=== PATIENT | male | born 1955 | race Caucasian/White ===

== ENCOUNTER 2020-09-17 10:29 | Outpatient (REF) | payer MEDICARE, MEDICAID, SELFPAY ==
[2020-09-17 14:23] LABS: Hematocrit 44.1 % (42-52); Mean Corpuscular Hemoglobin 29.1 pg (27.0-33.0); Mean Corpuscular Volume 85.6 fL (80-98); Mean Platelet Volume 11.3 fL (9.4-12.4); Platelet Count 229 X10*3/uL (160-400); Red Blood Count 5.15 X10*6/uL (4.60-5.80); Red Cell Distribution Width 12.4 % (11.0-16.0); White Blood Count 4.6 X10*3/uL (4.8-10.8)
[2020-09-17 14:43] LABS: Amylase 91 U/L (28-100)
[2020-09-17 14:57] LABS: Valproate 39.3 mcg/mL (50.0-100.0)
[2020-09-17 14:58] LABS: Alanine Aminotransferase 16 U/L (0-40); Albumin Level 4.2 g/dL (3.5-5.0); Alkaline Phosphatase 54 U/L (39-117); Anion Gap 14 (12-20); Aspartate Amino Transferase 14 U/L (5-37); Bilirubin Total 0.5 mg/dL (0.0-1.0); Blood Urea Nitrogen 14 mg/dL (9-16); Calcium 9.1 mg/dL (8.4-10.2); Carbon Dioxide 26 mmol/L (22-29); Chloride 106 mmol/L (96-108); Cholesterol 149 mg/dL; Estimated Glomerular Filt Rate > 60; Glucose Fasting 92 mg/dL (60-99); HDL Cholesterol 48 mg/dL; LDL Cholesterol Calculated 82 mg/dl; Potassium 4.2 mmol/l (3.3-5.1); Sodium 142 mmol/L (135-145); Total Protein 7.1 g/dL (6.5-8.0); Triglycerides 96 mg/dL
== END 2020-09-17 10:30 | disposition home or self-care (01) ==
LOC: HO.HMGCLDS 10:29
PROVIDERS: PCP Internal Medicine; Referring Provider Clinical Nurse Specialist Psychiatric/Mental Health; Visit Provider Internal Medicine
DX: F31.9 Bipolar disorder, unspecified (principal); Z79.899 Other long term (current) drug therapy
CPT/HCPCS: 36415; 80053; 80061; 80164; 82150; 85027

== ENCOUNTER 2021-07-02 10:25 | Outpatient (REF) | payer MEDICARE, MEDICAID, SELFPAY ==
[2021-07-02 13:52] LABS: Glucose Urine UA NEG (NEG); Leukocyte Esterase Urine NEG (NEG); Nitrite Urine NEG (NEG); Urine Blood TRACE (NEG); Urine Ketones NEG (NEG); Urine Protein NEG (NEG-TRACE)
[2021-07-02 13:53] LABS: Appearance Urine CLEAR; Color Urine YELLOW
[2021-07-02 14:01] LABS: MANUAL DIFF FLAG NO
[2021-07-02 14:02] LABS: RBC Urine 0-2 /HPF (0); WBC Urine 0-2 /HPF (0-4)
[2021-07-02 14:05] LABS: Basophils Percent Auto 0.7 % (0-2); Eosinophils Absolute Auto 0.2 X10*3/uL (0.0-0.4); Eosinophils Percent Auto 3.6 % (0-4); Hematocrit 44.8 % (42-52); Hemoglobin 15.2 g/dl (14.0-18.0); Imm Gran Abs Auto 0.02 X10*3/uL (0.00-0.03); Imm Gran Pct Auto 0.5 % (0.0-0.4); Lymphocytes Absolute Auto 1.6 X10*3/uL (1.2-4.9); Lymphocytes Percent Auto 35.4 % (20-40); Mean Corpuscular HGB Conc 33.9 g/dl (31.0-36.0); Mean Corpuscular Hemoglobin 29.6 pg (27.0-33.0); Mean Corpuscular Volume 87.3 fL (80-98); Mean Platelet Volume 11.3 fL (9.4-12.4); Monocytes Absolute Auto 0.5 X10*3/uL (0.1-1.2); Monocytes Percent Auto 10.4 % (2-11); Neutrophils Absolute Auto 2.2 X10*3/uL (2.0-8.3); Neutrophils Percent Auto 49.4 % (45-73); Platelet Count 224 X10*3/uL (160-400); Red Blood Count 5.13 X10*6/uL (4.60-5.80); Red Cell Distribution Width 12.2 % (11.0-16.0); White Blood Count 4.4 X10*3/uL (4.8-10.8)
[2021-07-02 14:17] LABS: Alanine Aminotransferase 15 U/L (0-40); Albumin Level 4.4 g/dL (3.5-5.0); Alkaline Phosphatase 59 U/L (39-117); Anion Gap 12 (12-20); Aspartate Amino Transferase 16 U/L (5-37); Bilirubin Total 0.6 mg/dL (0.0-1.0); Blood Urea Nitrogen 16 mg/dL (9-16); Calcium 9.5 mg/dL (8.4-10.2); Carbon Dioxide 27 mmol/L (22-29); Chloride 106 mmol/L (96-108); Cholesterol 175 mg/dL; Estimated Glomerular Filt Rate > 60; Glucose Fasting 97 mg/dL (60-99); HDL Cholesterol 50 mg/dL; LDL Cholesterol Calculated 111 mg/dl; Potassium 4.3 mmol/L (3.3-5.1); Sodium 141 mmol/L (135-145); Total Protein 7.4 g/dL (6.5-8.0); Triglycerides 70 mg/dL
[2021-07-02 14:36] LABS: PSA,Total (Free>4and<10) 2.37 ng/mL (0.00-4.00); Prostate Specific Antigen Scr 2.26 ng/mL (<0.05-4.0)
== END 2021-07-02 10:26 | disposition home or self-care (01) ==
LOC: HO.HMGCLDS 10:25
PROVIDERS: PCP Internal Medicine; Referring Provider Urology; Visit Provider Clinical Nurse Specialist Psychiatric/Mental Health
DX: Z12.5 Encounter for screening for malignant neoplasm of prostate (principal); N40.1 Benign prostatic hyperplasia with lower urinary tract symptoms; N13.8 Other obstructive and reflux uropathy; E78.5 Hyperlipidemia, unspecified; F32.9 Major depressive disorder, single episode, unspecified; I10 Essential (primary) hypertension
CPT/HCPCS: 36415; 80053; 80061; 80164; 81001; 84153; 85025; 85027

== ENCOUNTER 2021-12-26 10:29 | Outpatient (REF) | payer MEDICARE, MEDICAID, SELFPAY ==
[2021-12-26 13:45] LABS: MANUAL DIFF FLAG NO
[2021-12-26 13:49] LABS: Basophils Percent Auto 0.5 % (0-2); Eosinophils Absolute Auto 0.2 X10*3/uL (0.0-0.4); Eosinophils Percent Auto 3.5 % (0-4); Hematocrit 43.9 % (42.0-52.0); Hemoglobin 14.8 g/dl (14.0-18.0); Imm Gran Abs Auto 0.01 X10*3/uL (0.00-0.03); Imm Gran Pct Auto 0.2 % (0.0-0.4); Lymphocytes Absolute Auto 1.7 X10*3/uL (1.2-4.9); Lymphocytes Percent Auto 39.2 % (20-40); Mean Corpuscular HGB Conc 33.7 g/dl (31.0-36.0); Mean Corpuscular Hemoglobin 29.5 pg (27.0-33.0); Mean Corpuscular Volume 87.5 fL (80.0-98.0); Mean Platelet Volume 11.3 fL (9.4-12.4); Monocytes Absolute Auto 0.4 X10*3/uL (0.1-1.2); Monocytes Percent Auto 8.8 % (2-11); Neutrophils Absolute Auto 2.1 x10*3/uL (2.0-8.3); Neutrophils Percent Auto 47.8 % (45-73); Platelet Count 211 X10*3/uL (160-400); Red Blood Count 5.02 X10*6/uL (4.60-5.80); Red Cell Distribution Width 12.3 % (11.0-16.0); White Blood Count 4.3 X10*3/uL (4.8-10.8)
[2021-12-26 14:02] LABS: Amylase 118 U/L (28-100)
[2021-12-26 14:06] LABS: Alanine Aminotransferase 14 U/L (0-40); Albumin Level 4.1 g/dL (3.5-5.0); Alkaline Phosphatase 56 U/L (39-117); Anion Gap 10 (12-20); Aspartate Amino Transferase 13 U/L (5-37); Bilirubin Total 0.5 mg/dL (0.0-1.0); Blood Urea Nitrogen 20 mg/dL (9-16); Calcium 9.8 mg/dL (8.4-10.2); Carbon Dioxide 29 mmol/L (22-29); Chloride 105 mmol/L (96-108); Estimated Glomerular Filt Rate 57; Glucose Random 98 mg/dL (60-115); Potassium 4.2 mmol/L (3.3-5.1); Sodium 140 mmol/L (135-145); Total Protein 7.1 g/dL (6.5-8.0)
[2021-12-26 14:24] LABS: Valproate 36.6 mcg/mL (50.0-100.0)
== END 2021-12-26 10:30 | disposition home or self-care (01) ==
LOC: HO.HMGCLDS 10:29
PROVIDERS: PCP Internal Medicine; Visit Provider Clinical Nurse Specialist Psychiatric/Mental Health
DX: F31.9 Bipolar disorder, unspecified (principal)
CPT/HCPCS: 36415; 80053; 80164; 82150; 85025

== ENCOUNTER 2022-05-21 10:28 | Outpatient (REF) | payer MEDICARE, MEDICAID, SELFPAY ==
[2022-05-21 11:17] LABS: MANUAL DIFF FLAG NO
[2022-05-21 11:33] LABS: Basophils Percent Auto 0.8 % (0-2); Eosinophils Absolute Auto 0.2 X10*3/uL (0.0-0.4); Eosinophils Percent Auto 4.7 % (0-4); Hematocrit 42.4 % (42.0-52.0); Hemoglobin 14.5 g/dl (14.0-18.0); Imm Gran Abs Auto 0.01 X10*3/uL (0.00-0.03); Imm Gran Pct Auto 0.2 % (0.0-0.4); Lymphocytes Absolute Auto 1.8 X10*3/uL (1.2-4.9); Lymphocytes Percent Auto 36.7 % (20-40); Mean Corpuscular HGB Conc 34.2 g/dl (31.0-36.0); Mean Corpuscular Hemoglobin 29.4 pg (27.0-33.0); Mean Corpuscular Volume 85.8 fL (80.0-98.0); Mean Platelet Volume 10.5 fL (9.4-12.4); Monocytes Absolute Auto 0.5 X10*3/uL (0.1-1.2); Monocytes Percent Auto 10.6 % (2-11); Neutrophils Absolute Auto 2.3 x10*3/uL (2.0-8.3); Platelet Count 230 X10*3/uL (160-400); Red Blood Count 4.94 X10*6/uL (4.60-5.80); Red Cell Distribution Width 11.9 % (11.0-16.0); White Blood Count 4.9 X10*3/uL (4.8-10.8)
[2022-05-21 11:50] LABS: Valproate 36.5 mcg/mL (50.0-100.0)
[2022-05-21 11:58] LABS: Alanine Aminotransferase 16 U/L (0-40); Albumin Level 4.2 g/dL (3.5-5.0); Alkaline Phosphatase 61 U/L (39-117); Anion Gap 12 (12-20); Aspartate Amino Transferase 13 U/L (5-37); Bilirubin Total 0.4 mg/dL (0.0-1.0); Blood Urea Nitrogen 13 mg/dL (9-16); Calcium 9.3 mg/dL (8.4-10.2); Carbon Dioxide 28 mmol/L (22-29); Chloride 104 mmol/L (96-108); Estimated Glomerular Filt Rate > 60; Glucose Random 101 mg/dL (60-115); Potassium 4.5 mmol/L (3.3-5.1); Sodium 139 mmol/L (135-145); Total Protein 7.1 g/dL (6.5-8.0)
[2022-05-21 12:12] LABS: Vitamin B12 847 pg/mL (200-900)
== END 2022-05-21 10:29 | disposition home or self-care (01) ==
LOC: HO.HMGCLDS 10:28
PROVIDERS: PCP Internal Medicine; Visit Provider Clinical Nurse Specialist Psychiatric/Mental Health
DX: F31.9 Bipolar disorder, unspecified (principal); Z79.899 Other long term (current) drug therapy
CPT/HCPCS: 36415; 80053; 80164; 82306; 82607; 85025

== ENCOUNTER 2022-06-17 09:28 | Outpatient (REF) | payer MEDICARE, MEDICAID, SELFPAY ==
[2022-06-17 11:23] LABS: Hematocrit 43.1 % (42.0-52.0); Hemoglobin 14.7 g/dl (14.0-18.0); Mean Corpuscular HGB Conc 34.1 g/dl (31.0-36.0); Mean Corpuscular Hemoglobin 29.2 pg (27.0-33.0); Mean Corpuscular Volume 85.7 fL (80.0-98.0); Mean Platelet Volume 10.6 fL (9.4-12.4); Platelet Count 239 X10*3/uL (160-400); Red Blood Count 5.03 X10*6/uL (4.60-5.80); White Blood Count 4.7 X10*3/uL (4.8-10.8)
[2022-06-17 11:32] LABS: Appearance Urine CLEAR; Color Urine YELLOW; Glucose Urine UA NEG (NEG); Leukocyte Esterase Urine NEG (NEG); Nitrite Urine NEG (NEG); Specific Gravity - Urine <= 1.005 (1.005-1.025); Urine Blood NEG (NEG); Urine Ketones NEG (NEG); Urine Protein NEG (NEG-TRACE)
[2022-06-17 11:44] LABS: Alanine Aminotransferase 13 U/L (0-40); Albumin Level 4.2 g/dL (3.5-5.0); Alkaline Phosphatase 57 U/L (39-117); Anion Gap 12 (12-20); Aspartate Amino Transferase 14 U/L (5-37); Bilirubin Total 0.7 mg/dL (0.0-1.0); Blood Urea Nitrogen 16 mg/dL (9-16); Calcium 9.2 mg/dL (8.4-10.2); Carbon Dioxide 26 mmol/L (22-29); Chloride 106 mmol/L (96-108); Cholesterol 175 mg/dL; Estimated Glomerular Filt Rate > 60; Glucose Fasting 97 mg/dL (60-99); HDL Cholesterol 50 mg/dL; LDL Cholesterol Calculated 108 mg/dl; Potassium 4.1 mmol/L (3.3-5.1); Sodium 140 mmol/L (135-145); Total Protein 7.2 g/dL (6.5-8.0); Triglycerides 88 mg/dL
[2022-06-17 11:53] LABS: RBC Urine 0 /HPF (0); WBC Urine 0 /HPF (0-4)
[2022-06-17 12:05] LABS: Prostate Specific Antigen Scr 2.46 ng/mL (<0.05-4.0)
== END 2022-06-17 09:29 | disposition home or self-care (01) ==
LOC: HO.HMGCLDS 09:28
PROVIDERS: Visit Provider Internal Medicine
DX: Z12.5 Encounter for screening for malignant neoplasm of prostate (principal); E78.5 Hyperlipidemia, unspecified; I10 Essential (primary) hypertension
CPT/HCPCS: 36415; 80053; 80061; 81001; 84153; 85027

== ENCOUNTER 2022-10-31 07:35 | Outpatient (REF) | payer MEDICARE, MEDICAID, SELFPAY ==
[2022-10-31 11:35] LABS: MANUAL DIFF FLAG NO
[2022-10-31 11:46] LABS: Basophils Percent Auto 0.5 % (0-2); Eosinophils Absolute Auto 0.3 X10*3/uL (0.0-0.4); Eosinophils Percent Auto 4.5 % (0-4); Hematocrit 44.9 % (42.0-52.0); Hemoglobin 14.9 g/dl (14.0-18.0); Imm Gran Abs Auto 0.02 X10*3/uL (0.00-0.03); Imm Gran Pct Auto 0.4 % (0.0-0.4); Lymphocytes Absolute Auto 2.3 X10*3/uL (1.2-4.9); Lymphocytes Percent Auto 41.5 % (20-40); Mean Corpuscular HGB Conc 33.2 g/dl (31.0-36.0); Mean Corpuscular Hemoglobin 28.9 pg (27.0-33.0); Mean Corpuscular Volume 87.2 fL (80.0-98.0); Mean Platelet Volume 10.7 fL (9.4-12.4); Monocytes Absolute Auto 0.6 X10*3/uL (0.1-1.2); Monocytes Percent Auto 10.4 % (2-11); Neutrophils Absolute Auto 2.4 x10*3/uL (2.0-8.3); Neutrophils Percent Auto 42.7 % (45-73); Platelet Count 233 X10*3/uL (160-400); Red Blood Count 5.15 X10*6/uL (4.60-5.80); Red Cell Distribution Width 12.6 % (11.0-16.0); White Blood Count 5.5 X10*3/uL (4.8-10.8)
[2022-10-31 12:57] LABS: Alanine Aminotransferase 16 U/L (0-40); Albumin Level 4.2 g/dL (3.5-5.0); Alkaline Phosphatase 56 U/L (39-117); Amylase 85 U/L (28-100); Anion Gap 10 (12-20); Aspartate Amino Transferase 14 U/L (5-37); Bilirubin Total 0.6 mg/dL (0.0-1.0); Blood Urea Nitrogen 16 mg/dL (9-16); Carbon Dioxide 30 mmol/L (22-29); Chloride 101 mmol/L (96-108); Estimated Glomerular Filt Rate > 60; Glucose Random 89 mg/dL (60-115); Potassium 3.8 mmol/L (3.3-5.1); Sodium 137 mmol/L (135-145); Valproate 45.3 mcg/mL (50.0-100.0)
[2022-10-31 13:07] LABS: Calcium 9.7 mg/dL (8.4-10.2)
== END 2022-10-31 07:36 | disposition home or self-care (01) ==
LOC: HO.HMGCLDS 07:35
PROVIDERS: PCP Internal Medicine; Visit Provider Clinical Nurse Specialist Psychiatric/Mental Health
DX: F31.9 Bipolar disorder, unspecified (principal); Z79.899 Other long term (current) drug therapy
CPT/HCPCS: 36415; 80053; 80164; 82150; 85025

== ENCOUNTER 2022-12-23 10:58 | Outpatient (REF) | payer MEDICARE, MEDICAID, SELFPAY ==
[2022-12-23 15:28] LABS: Alanine Aminotransferase 16 U/L (0-40); Albumin Level 4.2 g/dL (3.5-5.0); Alkaline Phosphatase 54 U/L (39-117); Anion Gap 14 (12-20); Aspartate Amino Transferase 16 U/L (5-37); Bilirubin Total 0.5 mg/dL (0.0-1.0); Blood Urea Nitrogen 18 mg/dL (9-16); Calcium 9.7 mg/dL (8.4-10.2); Carbon Dioxide 28 mmol/L (22-29); Chloride 104 mmol/L (96-108); Cholesterol 173 mg/dL; Estimated Glomerular Filt Rate 57; Glucose Fasting 93 mg/dL (60-99); HDL Cholesterol 46 mg/dL; LDL Cholesterol Calculated 110 mg/dl; PSA,Total (Free>4and<10) 2.87 ng/mL (0.00-4.00); Potassium 4.2 mmol/L (3.3-5.1); Sodium 142 mmol/L (135-145); Triglycerides 87 mg/dL
== END 2022-12-23 10:59 | disposition home or self-care (01) ==
LOC: HO.HMGCLDS 10:58
PROVIDERS: PCP Internal Medicine; Visit Provider Internal Medicine
DX: Z12.5 Encounter for screening for malignant neoplasm of prostate (principal); I10 Essential (primary) hypertension; N13.8 Other obstructive and reflux uropathy; N40.1 Benign prostatic hyperplasia with lower urinary tract symptoms; E78.5 Hyperlipidemia, unspecified
CPT/HCPCS: 36415; 80053; 80061; 84153

== ENCOUNTER 2023-05-19 10:58 | Outpatient (REF) | payer MEDICARE, MEDICAID, SELFPAY ==
[2023-05-19 15:44] LABS: Alanine Aminotransferase 13 U/L (0-40); Albumin Level 4.1 g/dL (3.5-5.0); Alkaline Phosphatase 54 U/L (39-117); Amylase 74 U/L (28-100); Anion Gap 14 (12-20); Aspartate Amino Transferase 15 U/L (5-37); Bilirubin Total 0.8 mg/dL (0.0-1.0); Blood Urea Nitrogen 17 mg/dL (9-16); Calcium 9.7 mg/dL (8.4-10.2); Carbon Dioxide 24 mmol/L (22-29); Chloride 106 mmol/L (96-108); Estimated Glomerular Filt Rate > 60; Glucose Random 98 mg/dL (60-115); Potassium 3.9 mmol/L (3.3-5.1); Sodium 140 mmol/L (135-145); Total Protein 7.3 g/dL (6.5-8.0)
[2023-05-19 16:56] LABS: Valproate 75.9 mcg/mL (50.0-100.0)
== END 2023-05-19 10:59 | disposition home or self-care (01) ==
LOC: HO.HMGCLDS 10:58
PROVIDERS: PCP Internal Medicine; Visit Provider Clinical Nurse Specialist Psychiatric/Mental Health
DX: F31.9 Bipolar disorder, unspecified (principal)
CPT/HCPCS: 36415; 80053; 80164; 82150

== ENCOUNTER 2023-08-10 13:23 | Outpatient (REF) | payer MEDICARE, MEDICAID, SELFPAY ==
--- NOTE | ~2023-08-10 | US_ITS ---
EXAMINATION: US PELVIS LIMITED (BLADDER) CLINICAL INFORMATION: Urinary retention. COMPARISON: None available. TECHNIQUE: Real-time imaging of the bladder. FINDINGS: BLADDER: Well distended. There may be mild bladder wall thickening, particularly posteriorly. No stone or mass. Bilateral ureteral jets are demonstrated. Prevoid bladder volume is 541 mL. Postvoid bladder volume is 264 mL. The prostate gland is enlarged and protrudes into the base of the bladder. Prostate gland measures 12 x 9 x 9.5 cm, volume 96 mL. US/US bladder IMPRESSION: Large 264 mL post void bladder residual. Enlarged prostate gland that protrudes into the base of the bladder.
== END 2023-08-10 13:24 | disposition home or self-care (01) ==
LOC: HO.US 13:23
PROVIDERS: PCP Internal Medicine; Visit Provider Internal Medicine
DX: R33.9 Retention of urine, unspecified (principal); N40.1 Benign prostatic hyperplasia with lower urinary tract symptoms; N13.8 Other obstructive and reflux uropathy
CPT/HCPCS: 76857

== ENCOUNTER 2023-08-25 13:13 | Outpatient (REF) | payer MEDICARE, MEDICAID, SELFPAY ==
--- NOTE | ~2023-08-25 | US_ITS ---
EXAMINATION: US PELVIS LIMITED (BLADDER) CLINICAL INFORMATION: Retention of urine, unspecified. COMPARISON: Bladder ultrasound 08/10/2023. TECHNIQUE: Real-time imaging of the bladder. FINDINGS: BLADDER: Distended. Bilateral ureteral jets are demonstrated. Prevoid bladder volume is 955 mL. Postvoid bladder volume is 221 mL. US/US bladder IMPRESSION: Distended urinary bladder with prevoid volume 955 mL and post void bladder volume 221 mL.
== END 2023-08-25 13:14 | disposition home or self-care (01) ==
LOC: HO.HMGCX 13:13
PROVIDERS: PCP Internal Medicine; Visit Provider Internal Medicine
DX: R33.9 Retention of urine, unspecified (principal)
CPT/HCPCS: 76857

== ENCOUNTER 2023-09-28 12:10 | Outpatient (AMB) | payer MEDICARE, MEDICAID, SELFPAY ==
--- NOTE | 2023-09-28 12:17 | MHC.OFFVIS ---
Intake Intake Visit Reasons: BPH Intake Note: NEW Patient presents today to established treatment for BPH: Meds- Tamsulosin Allergies to Antibiotic- No Known Allergies Blood Thinner- None PVR- 0 mL Patient Symptoms: None Third Miller Required: No Accompanied by: Self / Same As Patient Allergies No Known Allergies Allergy (Mild, Verified 09/28/23 13:37) NONE Medication List - Last Reconciled 09/28/23 by QUIN Crenshaw- atorvastatin 10 mg PO DAILY benztropine 0.5 mg PO BID cholecalciferol (vitamin D3) 50 mcg PO DAILY divalproex ER (Depakote ER) 500 mg PO BID haloperidol 2 mg PO BID lisinopril-hydrochlorothiazide 20-12.5 mg 1 tab PO DAILY tamsulosin (Flomax) 0.8 mg (2 x 0.4 mg) PO BEDTIME HPI HPI Comments History of Present Illness Details Gato is a very pleasant 68-year-old male patient of Dr. Jeffrey. He has a past medical history of depression, hyperlipidemia, hypertension. He presents to the office today as a new patient for ongoing lower urinary tract symptoms. In discussion with the patient today reports to be doing and feeling well. He reports following up with his PCP and discussing ongoing lower urinary tract symptoms of weak urinary stream, dysuria, and feeling the need to strain when urinating. He reports PCP starting him on 0.8 mg of Flomax daily and feels his urinary symptoms are significantly better. He denies hematuria, foul smelling urine, flank pain, fever, and or chills. He is happy with her current voiding parameters on 0.8 mg of Flomax at bedtime. It appears PCP has ordered a bladder ultrasound. These results were reviewed with the patient today. The bladder is well distended. There is mild bladder wall thickening, particularly posteriorly. No stone or mass. Bilateral ureteral jets are demonstrated. Pre void bladder volume is approximately 540 mL. Post void bladder volume is approximately 265 mL. The prostate gland is enlarged and protrudes into the base of the bladder. Prostate gland measures 12 x 9 x 9.5 cm, volume of approximately 96 mL. In office urinalysis results reviewed with the patient today. PVR 0 mL. PSAs are as follows: 02/15--1.6, 06/18--2.9, 07/20--2.4, 07/20--2.3, 06/20 2.5, 12/22--2.9 Discussed at length potential causes of lower urinary tract symptoms patient is experiencing. Discussed initiation of finasteride given enlarged prostate noted on bladder ultrasound. Discussed bladder triggers/irritants. Patient otherwise denies any other issues or concerns at this time. [facility] Medical History Normal colonoscopy Depression Hyperlipidemia HTN (hypertension) Annual physical exam Surgical History History of colonoscopy History of inguinal hernia repair Family History Father Gastritis Mother Cardiac disease Diabetes mellitus Brother No problems noted. Brother No problems noted. Sister No problems noted. Sister No problems noted. Social History Housing: House Patient Tobacco Use Status: Never used Tobacco e-Cigarette/Vaping Use: Never Used Current occupational status: retired Cognitive needs: No Hearing needs: No Vision needs: Yes Review of Systems Const Reports no additional complaints Eyes Reports no additional complaints ENT Reports no additional complaints Card Reports as per HPI Resp Reports no additional complaints GI Reports no additional complaints Reports as per HPI Musc Reports no additional complaints Neuro Reports no additional complaints Psych Reports as per HPI Endo Reports no additional complaints Physical Exam Const General: cooperative, healthy appearing, comfortable, no acute distress, well developed, alert and awake Orientation/consciousness: patient oriented x3 Limitations: no limitations HEENT Head: Yes normal to inspection, Yes normocephalic and Yes atraumatic Ears: hearing grossly normal bilaterally Eyes General: appearance normal, both eyes and all related structures Neck Neck: Yes normal visual inspection and Yes trachea midline Chest Chest palpation & inspection: normal inspection of the chest Resp Effort & Inspection: normal respiratory effort and able to speak in complete sentences Cardio Rate: regular rate GI Inspection: Yes normal to inspection General: Yes no CVA tenderness Back/Spine/Pelvis Back: no CVA tenderness Skin General skin exam: no rashes or lesions noted Neuro General: patient oriented x3 Extrem General: Yes normal to inspection Psych Appearance: grossly normal and well kempt Mental Status: mental status grossly normal Speech and movement: Normal speech and movement present and Clear speech present Affect: normal affect Attitude: cooperative Thought process: Normal thought process present Thought content: Normal thought content present Insight: Fair insight present (Psych) Judgement: Fair judgement present (Psych) Office Procedures Post Void Residual Post Residual Void Post Void Residual (PVR): 0 [id number] Void Residual by ultrasound Results AMB Urinalysis, Automated UA Leukoctes 0 Mari/uL Last Edit by Jamel Mccarty Sade on 09/28/23 12:26 UA Nitrite Negative Last Edit by Jamel Mccarty [facility] on 09/28/23 12:26 UA Urobilinogen 0.2 mg/dL Last Edit by Jamel Mccarty [facility] on 09/28/23 12:26 UA Protein 0 mg/dL Last Edit by Jamel Mccarty [facility] on 09/28/23 12:26 UA pH 6.0 Last Edit by Jamel Mccarty [facility] on 09/28/23 12:26 UA Blood 0 Jesus/uL Last Edit by Jamel Mccarty [facility] on 09/28/23 12:26 UA Specific [place] 1.010 Last Edit by Jamel Mccarty [facility] on 09/28/23 12:26 UA Ketone Negative Last Edit by Jamel Mccarty Sade on 09/28/23 12:26 UA Bilirubin 0 mg/dL Last Edit by Jamel Mccarty [facility] on 09/28/23 12:26 UA Glucose 0 mg/dL Last Edit by Jamel Mccarty [facility] on 09/28/23 12:26 Results Reviewed Results Reviewed: Laboratory Last Values Urine pH (Auto) 6.0 09/28/23 12:18 Specific [place] (Auto) 1.010 09/28/23 12:18 Urine Protein (Auto) 0 mg/dL 09/28/23 12:18 Glucose (UA)(Auto) 0 mg/dL 09/28/23 12:18 Urine Ketones (Auto) Negative 09/28/23 12:18 Urine Blood (Auto) 0 Jesus/uL 09/28/23 12:18 Urine Nitrite (Auto) Negative 09/28/23 12:18 Urine Bilirubin (Auto) 0 mg/dL 09/28/23 12:18 Urine Urobilinogen (Auto) 0.2 mg/dL 09/28/23 12:18 Leukocyte Esterase (Auto) 0 Mari/uL 09/28/23 12:18 Date of Service: 08/10/23 Procedure(s): US bladder FINDINGS: BLADDER: Well distended. There may be mild bladder wall thickening, particularly posteriorly. No stone or mass. Bilateral ureteral jets are demonstrated. Prevoid bladder volume is 541 mL. Postvoid bladder volume is 264 mL. The prostate gland is enlarged and protrudes into the base of the bladder. Prostate gland measures 12 x 9 x 9.5 cm, volume 96 mL. IMPRESSION: Large 264 mL post void bladder residual. Enlarged prostate gland that protrudes into the base of the bladder. Assessment & Plan Assessment & Plan (1) Enlarged prostate: Code(s): N40.0 - Benign prostatic hyperplasia without lower urinary tract symptoms (2) Bladder wall thickening: Code(s): N32.89 - Other specified disorders of bladder (3) Lower urinary tract symptoms: Code(s): R39.9 - Unspecified symptoms and signs involving the genitourinary system Plan In office urinalysis results reviewed with the patient today; as noted above. PVR 0 mL. Recent bladder ultrasound results reviewed with the patient today; as noted above. PSAs reviewed; as noted above. Continue Flomax 0.8 mg daily as patient reports to be happy with current voiding parameters on this medication and dosage. Start finasteride as discussed and prescribed. Discussed bladder triggers/irritants. Discussed at length potential causes for lower urinary tract symptoms patient had been experiencing. Discussed near future in office cystoscopy if symptoms reoccur and or worsen. Will obtain PSA in 4 months. Follow-up in 4 months with lab to be completed prior and PVR at next office visit; or sooner with any issues, concerns, and or questions. Orders: Orders AMB Urinalysis Automated Today Z13.9 - Encounter for screening, unspecified AMB Post Void Residual by ultrasound Today N39.8 - Other specified disorders of urinary system PSA,Total (Free>4and<10) 4 Months N13.8 - Other obstructive and reflux uropathy, N40.1 - Benign prostatic hyperplasia with lower urinary tract symptoms Patient Instructions: The patient had an opportunity to ask questions regarding the treatment plan. All questions were answered. Physical exam, labs, and imaging were discussed and reviewed in detail. As well as risks, benefits, and discussion of treatment choices. No major barriers to understanding were identified. The patient expressed understanding and agreement with the above treatment plan. The patient was made aware they should contact our office by phone for worsening of their current condition, the appearance of new symptoms, or with any questions or concerns. Compliance is encouraged with any medications and follow up testing that is ordered. It is a privilege to be allowed the opportunity to participate in? your urological care.? Again, if you have any questions or concerns If you have any questions or concerns please do not hesitate to contact me. The office is [phone]. This note is constructed using voice recognition software. While every effort has been made to ensure accuracy boat person errors may have been included. Yours sincerely, GUILLERMO Crenshaw Coding Level of Care Code New Pt Level 4 (64685) Diagnoses Enlarged prostate N40.0 Bladder wall thickening N32.89 Lower urinary tract symptoms R39.9 CPT Codes Post Residual Void - PVR CPT Code: [id number] Void Residual by ultrasound ([id number])
== END 2023-09-28 13:36 | disposition home or self-care (01) ==
PROVIDERS: PCP Internal Medicine; Visit Provider Nurse Practitioner Family
DX: N40.0 Benign prostatic hyperplasia without lower urinary tract symptoms (principal); N32.89 Other specified disorders of bladder; R39.9 Unspecified symptoms and signs involving the genitourinary system; Z13.9 Encounter for screening, unspecified
CPT/HCPCS: 99204

== ENCOUNTER → 2023-09-28 12:10 | Outpatient (BNVA) | payer MEDICARE, MEDICAID, SELFPAY | PROVIDERS: PCP Internal Medicine; Visit Provider Nurse Practitioner Family | DX: N40.0 Benign prostatic hyperplasia without lower urinary tract symptoms (principal); N32.89 Other specified disorders of bladder; R39.9 Unspecified symptoms and signs involving the genitourinary system | CPT/HCPCS: 51798; 81003; 99202 ==

== ENCOUNTER 2023-12-29 10:58 | Outpatient (REF) | payer MEDICARE, MEDICAID, SELFPAY ==
[2023-12-29 13:32] LABS: MANUAL DIFF FLAG NO
[2023-12-29 13:43] LABS: Basophils Percent Auto 0.5 % (0-2); Eosinophils Absolute Auto 0.1 X10*3/uL (0.0-0.4); Eosinophils Percent Auto 3.2 % (0-4); Hematocrit 43.2 % (42.0-52.0); Hemoglobin 14.8 g/dl (14.0-18.0); Imm Gran Abs Auto 0.01 X10*3/uL (0.00-0.03); Imm Gran Pct Auto 0.2 % (0.0-0.4); Lymphocytes Absolute Auto 1.7 X10*3/uL (1.2-4.9); Lymphocytes Percent Auto 37.6 % (20-40); Mean Corpuscular HGB Conc 34.3 g/dl (31.0-36.0); Mean Corpuscular Hemoglobin 29.1 pg (27.0-33.0); Mean Platelet Volume 11.3 fL (9.4-12.4); Monocytes Absolute Auto 0.4 X10*3/uL (0.1-1.2); Monocytes Percent Auto 9.1 % (2-11); Neutrophils Absolute Auto 2.2 x10*3/uL (2.0-8.3); Neutrophils Percent Auto 49.4 % (45-73); Platelet Count 216 X10*3/uL (160-400); Red Blood Count 5.08 X10*6/uL (4.60-5.80); Red Cell Distribution Width 12.4 % (11.0-16.0); White Blood Count 4.4 X10*3/uL (4.8-10.8)
[2023-12-29 14:07] LABS: Alanine Aminotransferase 15 U/L (0-40); Albumin Level 4.1 g/dL (3.5-5.0); Alkaline Phosphatase 57 U/L (39-117); Anion Gap 14 (12-20); Aspartate Amino Transferase 15 U/L (5-37); Bilirubin Total 0.6 mg/dL (0.0-1.0); Blood Urea Nitrogen 19 mg/dL (9-16); Calcium 9.6 mg/dL (8.4-10.2); Carbon Dioxide 25 mmol/L (22-29); Chloride 107 mmol/L (96-108); Cholesterol 171 mg/dL (<200); Estimated Glomerular Filt Rate > 60; Glucose Fasting 97 mg/dL (60-99); HDL Cholesterol 47 mg/dL (>40); LDL Cholesterol Calculated 108 mg/dL (<100); Potassium 3.8 mmol/L (3.3-5.1); Sodium 142 mmol/L (135-145); Total Protein 7.3 g/dL (6.5-8.0); Triglycerides 82 mg/dL (<150)
[2023-12-29 14:11] LABS: Valproate 50.7 mcg/mL (50.0-100.0)
== END 2023-12-29 10:59 | disposition home or self-care (01) ==
LOC: HO.HMGCLDS 10:58
PROVIDERS: PCP Internal Medicine; Referring Provider Clinical Nurse Specialist Psychiatric/Mental Health; Visit Provider Internal Medicine
DX: Z00.00 Encounter for general adult medical examination without abnormal findings (principal); E78.5 Hyperlipidemia, unspecified; I10 Essential (primary) hypertension; N40.1 Benign prostatic hyperplasia with lower urinary tract symptoms; N13.8 Other obstructive and reflux uropathy; F31.9 Bipolar disorder, unspecified
CPT/HCPCS: 36415; 80053; 80061; 80164; 82306; 85025

== ENCOUNTER 2024-01-19 10:56 | Outpatient (REF) | payer MEDICARE, MEDICAID, SELFPAY ==
[2024-01-19 14:02] LABS: PSA,Total (Free>4and<10) 0.98 ng/mL (0.00-4.00)
== END 2024-01-19 10:57 | disposition home or self-care (01) ==
LOC: HO.HMGCLDS 10:56
PROVIDERS: PCP Internal Medicine; Visit Provider Nurse Practitioner Family
DX: N40.1 Benign prostatic hyperplasia with lower urinary tract symptoms (principal); N13.8 Other obstructive and reflux uropathy; Z12.5 Encounter for screening for malignant neoplasm of prostate
CPT/HCPCS: 36415; 84153

== ENCOUNTER 2024-02-15 13:13 | Outpatient (AMB) | payer MEDICARE, MEDICAID, SELFPAY ==
[2024-02-15 13:21] VITALS: BP 116/70; PULSE 56; O2SAT 96; BMI 29.1
--- NOTE | 2024-02-15 13:21 | A.OFFPC_ITS ---
Vital Signs 02/15/24 13:21 Height 5 ft 11 in Weight 209 lb BMI 29.1 BP 116/70 Blood Pressure Location Lt brachial Position Sitting Pulse 56 Pulse Source Pulse Oximeter Pulse Oximetry (%) 96 Oxygen Delivery Method Room Air Intake Visit Reasons: cataract, Dr. Bryant, 03/15 Intake Note: Pt is here today for a pre op visit. Pt is having cataract surgery with Dr. Bryant on 03/15/24. Allergies No Known Allergies Allergy (Mild, Verified 02/15/24 13:34) NONE Medication List - Last Reconciled 02/15/24 by Lor Jeffrey MD aspirin 81 mg PO DAILY atorvastatin 10 mg PO DAILY benztropine 0.5 mg PO BID cholecalciferol (vitamin D3) 50 mcg PO DAILY cholecalciferol (vitamin D3) 50 mcg PO DAILY divalproex ER (Depakote ER) 500 mg PO BID finasteride 5 mg PO DAILY 90 days haloperidol 2 mg PO BID lisinopril-hydrochlorothiazide 20-12.5 mg 1 tab PO DAILY tamsulosin (Flomax) 0.8 mg (2 x 0.4 mg) PO BEDTIME 90 days Tobacco use date assessed: 02/15/24 Fall risk assessment: No Falls in past year Last assessed Fall Risk: 02/15/24 Dental Screening Dental Screen Date: 02/15/24 Did you have a dental visit in the last 12 months?: Yes Did you have a dental problem in the last 6 months where you did not have access to dental care?: No Was dental information given to patient?: Patient has dentist HPI cataract, Dr. Bryant, 03/15 HPI Details Patient presents for preop for cataract surgery hypertension hyperlipidemia BPH and chronic depression are stable on current medications. [facility] Medical History Normal colonoscopy Depression Hyperlipidemia HTN (hypertension) Annual physical exam Surgical History History of colonoscopy History of inguinal hernia repair Family History Father Gastritis Mother Cardiac disease Diabetes mellitus Brother No problems noted. Brother No problems noted. Sister No problems noted. Sister No problems noted. Social History Housing: House Patient Tobacco Use Status: Never used Tobacco e-Cigarette/Vaping Use: Never Used Current occupational status: retired Cognitive needs: No Hearing needs: No Vision needs: Yes Questionnaire PHQ-9 Over the last 2 weeks, how often have you been bothered by any of the following problems? 1. Little interest or pleasure in doing things: not at all 2. Feeling down, depressed, or hopeless: not at all 3. Trouble falling or staying asleep, or sleeping too much: not at all 4. Feeling tired or having little energy: not at all 5. Poor appetite or overeating: not at all 6. Feeling bad about yourself - or that you are a failure or have let yourself or your family down: not at all 7. Trouble concentrating on things, such as reading the newspaper or watching television: not at all 8. Moving or speaking so slowly that other people could have noticed. Or the opposite - being so fidgety or restless that you have been moving around a lot more than usual: not at all 9. Thoughts that you would be better off or of hurting yourself in some way: not at all Total score: 0 Depression Screening Interpretation: Negative Depression Screening Done: Yes Source: Developed by Drs. Kulwant Whaley, Claudia Juarez, José Luis Donahue and colleagues, with an educational marisela from [employer]. Thrive Questionnaire Date Thrive assessed: 02/15/24 I am a: Patient What is your living situation today?: I have a steady place to live Within the past 12 months, did the food you bought not last and you didn't have the money to get more?: Never true Within the past 12 months, did you worry whether your food would run out before you got money to buy more?: Never true Do you have trouble paying for medicines?: No Do you have trouble getting transportation to medical appointments?: No Do you have trouble paying your heating and electricity bill?: No Do you have trouble taking care of your child, family member or friend?: No Do you have trouble with day-to-day activities such as bathing, preparing meals, shopping, managing finances, etc.?: No Are you currently unemployed and looking for a job?: No Are you interested in more education?: No Please select the resources that you would like help with: None Currently or been in a relationship where the following occur: no concerns reported THRIVE Score: 0 AUDIT C Alcohol Use Questionnaire (AUDIT-C) 1. How often do you have a drink containing alcohol?: Never 3. How often do you have six or more drinks on one occasion?: Never Total Score: 0 DALTON-7 AMB Questionnaire DALTON-7 Date DALTON - 7 assessed: 02/15/24 Feeling nervous, anxious, or on edge: 0 = Not at all Not being able to stop or control worryin = Not at all Worrying too much about different things: 0 = Not at all Trouble relaxin = Not at all Being so restless that it is hard to sit still: 0 = Not at all Becoming easily annoyed or irritable: 0 = Not at all Feeling afraid as if something awful might happen: 0 = Not at all Total DALTON-7 score (0-4 normal; 5-9 mild; 10-14 moderate; 15-21 severe): 0 Source: Developed by Drs. Kulwant Whaley, Claudia Juarez, José Luis Donahue and colleagues, with an educational marisela from [employer]. Review of Systems Const All systems reviewed & are unremarkable except as noted in HPI and below Reports no additional complaints Eyes Reports no additional complaints ENT Reports no additional complaints Card Reports no additional complaints Resp Reports no additional complaints GI Reports no additional complaints Physical exam (Primary Care) Vital Signs: Last Vital Signs Pulse 56 02/15/24 13:21 BP 116/70 02/15/24 13:21 Pulse Ox 96 02/15/24 13:21 Oxygen Delivery Method Room Air 02/15/24 13:21 BMI result Body Mass Index 29.1 Tobacco/Smoking Status: Tobacco use Status Tobacco use date assessed 02/15/24 02/15/24 13:39 Patient Tobacco Use Status Never used Tobacco 02/15/24 13:39 e-Cigarette/Vaping Use Never Used 02/15/24 13:21 PHQ-9: PHQ-9 Score PHQ-9: Total score 0 02/15/24 13:39 Depression Screening Interpretation: Negative Thrive Assessment: Date of Thrive Assessment Date Thrive assessed 02/15/24 02/15/24 13:39 Currently or been in a relationship where the following occur: no concerns reported Const General: no acute distress HENMT Head: Yes normal to inspection Throat: Yes posterior oropharynx normal Neck Neck: Yes no lymphadenopathy Resp Effort & Inspection: normal respiratory effort Auscultation: clear to auscultation bilaterally Cardio Rhythm: regular rhythm Heart sounds: S1 normal heart sound present and S2 normal heart sound present GI Inspection: Yes normal to inspection Palpation (GI): Soft to palpation Percussion: Yes normal to percussion Assessment and Plan Assessment & Plan (1) Hyperlipidemia: Code(s): E78.5 - Hyperlipidemia, unspecified Plan: Continue atorvastatin (2) HTN (hypertension): Code(s): I10 - Essential (primary) hypertension Plan: Continue current medications (3) Cataract: Code(s): H26.9 - Unspecified cataract Plan: Patient is medically cleared for cataract surgery (4) BPH w urinary obs/LUTS: Code(s): N40.1 - Benign prostatic hyperplasia with lower urinary tract symptoms; N13.8 - Other obstructive and reflux uropathy Plan: Continue finasteride and Flomax (5) Depression: Comment: Follow-up with Psychiatry Code(s): F32.9 - Major depressive disorder, single episode, unspecified Plan: Continue current medications follow-up with Psychiatry Orders: Orders Comprehensive [place]. Panel Fast 6 Months E78.5 - Hyperlipidemia, unspecified, H26.9 - Unspecified cataract, I10 - Essential (primary) hypertension Lipid Panel 6 Months E78.5 - Hyperlipidemia, unspecified, H26.9 - Unspecified cataract, I10 - Essential (primary) hypertension Complete Blood Count Auto Diff 6 Months E78.5 - Hyperlipidemia, unspecified, H26.9 - Unspecified cataract, I10 - Essential (primary) hypertension Vitamin D 25-OH Total 6 Months E78.5 - Hyperlipidemia, unspecified, H26.9 - Unspecified cataract, I10 - Essential (primary) hypertension Coding Level of Care Code Est Pt Level 4 (46895) Diagnoses Hyperlipidemia E78.5 HTN (hypertension) I10 Cataract H26.9 BPH w urinary obs/LUTS N40.1; N13.8 Depression F32.9
== END 2024-02-15 14:09 | disposition home or self-care (01) ==
PROVIDERS: PCP Internal Medicine; Visit Provider Internal Medicine
DX: E78.5 Hyperlipidemia, unspecified (principal); I10 Essential (primary) hypertension; H26.9 Unspecified cataract; N40.1 Benign prostatic hyperplasia with lower urinary tract symptoms; N13.8 Other obstructive and reflux uropathy; F32.9 Major depressive disorder, single episode, unspecified
CPT/HCPCS: 99214

== ENCOUNTER 2024-03-07 10:57 | Outpatient (AMB) | payer MEDICARE, MEDICAID, SELFPAY ==
--- NOTE | 2024-03-07 11:30 | MHC.OFFVIS ---
Intake Intake Visit Reasons: 4m/PSA Intake Note: Patient presents for follow up visit for BPH Urology Medications: Tamsulosin and Finasteride Blood Thinner: none PVR: 88 mLs Derrick Hand Required: No Accompanied by: Self / Same As Patient Allergies No Known Allergies Allergy (Mild, Verified 03/07/24 11:57) NONE Medication List - Last Reconciled 03/07/24 by TAMARA CrenshawP- aspirin 81 mg PO DAILY atorvastatin 10 mg PO DAILY benztropine 0.5 mg PO BID cholecalciferol (vitamin D3) 50 mcg PO DAILY cholecalciferol (vitamin D3) 50 mcg PO DAILY divalproex ER (Depakote ER) 500 mg PO BID finasteride 5 mg orally 3 times per week; Take 1 tablet 3 times per week; Thursday Or Thursday. 90 days haloperidol 2 mg PO BID lisinopril-hydrochlorothiazide 20-12.5 mg 1 tab PO DAILY tamsulosin (Flomax) 0.8 mg (2 x 0.4 mg) PO BEDTIME 90 days HPI HPI Comments History of Present Illness Details Gato is a very pleasant 68-year-old male patient of Dr. Jeffrey. He has a past medical history of depression, hyperlipidemia, hypertension. He presents to the office today for follow-up. In discussion with the patient today reports to be doing and feeling well. He reports compliance with 0.8 mg of Flomax daily as well as 5 mg of finasteride. Recent PSA results reviewed and trended with the patient below. He currently denies any bothersome urinary issues. He reports to be happy with current voiding parameters on his urological medications. Previous workup has included a bladder ultrasound noting the bladder is well distended. There is mild bladder wall thickening, particularly posteriorly. No stone or mass. Bilateral ureteral jets are demonstrated. Pre void bladder volume is approximately 540 mL. Post void bladder volume is approximately 265 mL. The prostate gland is enlarged and protrudes into the base of the bladder. Prostate gland measures 12 x 9 x 9.5 cm, volume of approximately 96 mL. In office urinalysis results reviewed with the patient today. PVR 88 mL. PSAs are as follows: 02/15--1.6, 06/18--2.9, 07/20--2.4, 07/20--2.3, 06/20 2.5, 12/22--2.9, 01/23 1.0 Discussed drop in PSA and continue finasteride however Thursday or Thursday. Discussed bladder triggers/irritants. Patient otherwise denies any other issues or concerns at this time. [facility] Medical History Normal colonoscopy Depression Hyperlipidemia HTN (hypertension) Annual physical exam Surgical History History of colonoscopy History of inguinal hernia repair Family History Father Gastritis Mother Cardiac disease Diabetes mellitus Brother No problems noted. Brother No problems noted. Sister No problems noted. Sister No problems noted. Social History Housing: House Patient Tobacco Use Status: Never used Tobacco e-Cigarette/Vaping Use: Never Used Current occupational status: retired Cognitive needs: No Hearing needs: No Vision needs: Yes Review of Systems Const Reports no additional complaints Eyes Reports no additional complaints ENT Reports no additional complaints Card Reports as per HPI Resp Reports no additional complaints GI Reports no additional complaints Reports as per HPI Musc Reports no additional complaints Neuro Reports no additional complaints Psych Reports as per HPI Endo Reports no additional complaints Physical Exam Const General: cooperative, healthy appearing, comfortable, no acute distress, well developed, alert and awake Orientation/consciousness: patient oriented x3 Limitations: no limitations HEENT Head: Yes normal to inspection, Yes normocephalic and Yes atraumatic Ears: hearing grossly normal bilaterally Eyes General: appearance normal, both eyes and all related structures Neck Neck: Yes normal visual inspection and Yes trachea midline Chest Chest palpation & inspection: normal inspection of the chest Resp Effort & Inspection: normal respiratory effort and able to speak in complete sentences Cardio Rate: regular rate GI Inspection: Yes normal to inspection General: Yes no CVA tenderness Back/Spine/Pelvis Back: no CVA tenderness Skin General skin exam: no rashes or lesions noted Neuro General: patient oriented x3 Extrem General: Yes normal to inspection Psych Appearance: grossly normal and well kempt Mental Status: mental status grossly normal Speech and movement: Normal speech and movement present and Clear speech present Affect: normal affect Attitude: cooperative Thought process: Normal thought process present Thought content: Normal thought content present Insight: Fair insight present (Psych) Judgement: Fair judgement present (Psych) Office Procedures Post Void Residual Post Residual Void Post Void Residual (PVR): 88 [id number] Void Residual by ultrasound Results AMB Urinalysis, Automated UA Leukoctes 0 Mari/uL Last Edit by Ismael Pittman on 03/07/24 11:56 UA Nitrite Negative Last Edit by veriCARvenkat Pittman on 03/07/24 11:56 UA Urobilinogen 0.2 mg/dL Last Edit by [employer] on 03/07/24 11:56 UA Protein 0 mg/dL Last Edit by Ablexisjose alfredo Treat[employer]angel on 03/07/24 11:56 UA pH 6.0 Last Edit by veriCARvenkat Pittman on 03/07/24 11:56 UA Blood 0 Jesus/uL Last Edit by Ablexisjose alfredo [employer]angel on 03/07/24 11:56 UA Specific [place] 1.010 Last Edit by [employer] on 03/07/24 11:56 UA Ketone Negative Last Edit by [employer] on 03/07/24 11:56 UA Bilirubin 0 mg/dL Last Edit by [employer] Pharmaceuticalsagnel on 03/07/24 11:56 UA Glucose 0 mg/dL Last Edit by Ablexisjose alfredo Treat[employer]angel on 03/07/24 11:56 Results Reviewed Results Reviewed: Laboratory Last Values Urine pH (Auto) 6.0 03/07/24 11:37 Specific [place] (Auto) 1.010 03/07/24 11:37 Urine Protein (Auto) 0 mg/dL 03/07/24 11:37 Glucose (UA)(Auto) 0 mg/dL 03/07/24 11:37 Urine Ketones (Auto) Negative 03/07/24 11:37 Urine Blood (Auto) 0 Jesus/uL 03/07/24 11:37 Urine Nitrite (Auto) Negative 03/07/24 11:37 Urine Bilirubin (Auto) 0 mg/dL 03/07/24 11:37 Urine Urobilinogen (Auto) 0.2 mg/dL 03/07/24 11:37 Leukocyte Esterase (Auto) 0 Mari/uL 03/07/24 11:37 Assessment & Plan Assessment & Plan (1) Lower urinary tract symptoms: Code(s): R39.9 - Unspecified symptoms and signs involving the genitourinary system (2) Bladder wall thickening: Code(s): N32.89 - Other specified disorders of bladder (3) Enlarged prostate: Code(s): N40.0 - Benign prostatic hyperplasia without lower urinary tract symptoms Plan In office urinalysis results reviewed with the patient today. PVR 88 mL. Continue Flomax 0.8 mg daily as discussed and prescribed. Continue finasteride however can decrease to Thursday Recent PSA results reviewed with the patient today. Patient reports be happy with current voiding parameters on Flomax and finasteride Patient denies any bothersome urinary issues or concerns at this time. Will obtain PSA in 6 months. Follow-up in 6 months with lab to be completed prior; or sooner with any issues, concerns, and or questions. Orders: Orders Prostate Specific Antigen 6 Months N40.0 - Benign prostatic hyperplasia without lower urinary tract symptoms AMB Urinalysis Automated Today Z13.9 - Encounter for screening, unspecified AMB Post Void Residual by ultrasound Today R39.9 - Unspecified symptoms and signs involving the genitourinary system Medications: Changed From finasteride 5 mg PO DAILY 90 days 90 tabs 1RF N13.8 - Other obstructive and reflux uropathy, N40.1 - Benign prostatic hyperplasia with lower urinary tract symptoms, R33.9 - Retention of urine, unspecified To finasteride 5 mg orally 3 times per week; Take 1 tablet 3 times per week; Thursday Or Thursday. 45 tabs 3RF 90 days N13.8 - Other obstructive and reflux uropathy, N40.1 - Benign prostatic hyperplasia with lower urinary tract symptoms, R33.9 - Retention of urine, unspecified Refilled tamsulosin (Flomax) 0.8 mg (2 x 0.4 mg) PO BEDTIME 180 caps 3RF 90 days Patient Instructions: The patient had an opportunity to ask questions regarding the treatment plan. All questions were answered. Physical exam, labs, and imaging were discussed and reviewed in detail. As well as risks, benefits, and discussion of treatment choices. No major barriers to understanding were identified. The patient expressed understanding and agreement with the above treatment plan. The patient was made aware they should contact our office by phone for worsening of their current condition, the appearance of new symptoms, or with any questions or concerns. Compliance is encouraged with any medications and follow up testing that is ordered. It is a privilege to be allowed the opportunity to participate in? your urological care.? Again, if you have any questions or concerns If you have any questions or concerns please do not hesitate to contact me. The office is [phone]. This note is constructed using voice recognition software. While every effort has been made to ensure accuracy float builder errors may have been included. Yours sincerely, GUILLERMO Crenshaw Coding Level of Care Code Est Pt Level 3 (63064) Diagnoses Lower urinary tract symptoms R39.9 Bladder wall thickening N32.89 Enlarged prostate N40.0 CPT Codes Post Residual Void - PVR CPT Code: 61362-Nkll Void Residual by ultrasound ([id number])
== END 2024-03-07 11:58 | disposition home or self-care (01) ==
PROVIDERS: PCP Internal Medicine; Visit Provider Nurse Practitioner Family
DX: R39.9 Unspecified symptoms and signs involving the genitourinary system (principal); N32.89 Other specified disorders of bladder; N40.0 Benign prostatic hyperplasia without lower urinary tract symptoms; Z13.9 Encounter for screening, unspecified
CPT/HCPCS: 99213

== ENCOUNTER → 2024-03-07 10:57 | Outpatient (BNVA) | payer MEDICARE, MEDICAID, SELFPAY | PROVIDERS: PCP Internal Medicine; Visit Provider Nurse Practitioner Family | DX: R39.9 Unspecified symptoms and signs involving the genitourinary system (principal); N32.89 Other specified disorders of bladder; N40.0 Benign prostatic hyperplasia without lower urinary tract symptoms | CPT/HCPCS: 51798; 81003; 99212 ==

== ENCOUNTER 2024-08-02 11:53 | Day surgery (SDC) | payer MEDICARE, MEDICAID, SELFPAY ==
[2024-07-28 14:46] VITALS: BMI 31.4
--- NOTE | 2024-07-28 15:27 | HO.ANESPROP2 ---
HPI - Anesthesia Eval Consult details Narrative: 69yo M for Colonoscopy PMFSH Active Problems Active Problems: All Active Problems Ingrown toenail of both feet (Acute) Cataract (Acute) Lower urinary tract symptoms (Acute) Bladder wall thickening (Acute) Enlarged prostate (Acute) Urinary retention (Acute) BPH w urinary obs/LUTS (Acute) History of colonoscopy (Acute) Normal colonoscopy (Acute) Depression (Acute) Hyperlipidemia (Acute) HTN (hypertension) (Acute) Annual physical exam (Acute) Past Medical History Medical History Elevated cholesterol Bipolar 1 disorder Chest pain Normal colonoscopy Depression Hyperlipidemia HTN (hypertension) Annual physical exam Family History Family History Father Gastritis Mother Cardiac disease Diabetes mellitus Brother No problems noted. Brother No problems noted. Sister No problems noted. Sister No problems noted. Surgical History Surgical History Hx of bilateral cataract extraction History of colonoscopy History of inguinal hernia repair Social History Social History Housing: House Patient Tobacco Use Status: Never used Tobacco e-Cigarette/Vaping Use: Never Used Current occupational status: retired Cognitive needs: No Hearing needs: No Vision needs: Yes Meds Allergies Allergy/AdvReac Type Severity Reaction Status Date / Time No Known Allergies Allergy Mild NONE Verified 03/07/24 11:57 Home Medications ?Medication ?Instructions ?Recorded ?Confirmed ?Last Taken ?Type divalproex 500 mg tablet,extended 500 mg PO BID 01/02/21 07/28/24 Unknown History release 24 hr (Depakote ER) benztropine 0.5 mg tablet 0.5 mg PO BID 06/30/22 07/28/24 Unknown History aspirin 81 mg tablet,delayed 81 mg PO DAILY 02/15/24 07/28/24 07/25/24 History release cholecalciferol (vitamin D3) 50 50 mcg PO DAILY 02/15/24 07/28/24 Unknown History mcg (2,000 unit) tablet finasteride 5 mg tablet 5 mg PO DAILY 07/28/24 07/28/24 Unknown History haloperidol 2 mg tablet 4 mg PO BEDTIME 07/28/24 07/28/24 Unknown History tamsulosin 0.4 mg capsule (Flomax) 0.4 mg PO BEDTIME 07/28/24 07/28/24 Unknown History Exam Height,Weight and Vital Signs: Height 5 ft 9.5 in Weight 97.976 kg Assessment and Plan Assessment Anesthesia Assessment: Chart Reviewed
--- NOTE | 2024-08-02 10:29 | MHC.SHP ---
Pre-Procedural Eval Section A - 24 Hr Update-Section A only Date of Service: 08/02/24 The patient is an INPATIENT: No Changes since office visit: No Cold of Flu in the past 2 weeks, No New Medical Problems, No Changes in Medication and No Patient answered all questions The patient has been examined within 24 hours of the surgical procedure. The History & Physical has been completed within 30 days and I have reviewed it.: Yes Section B - Complete if H&P > 30 days Chief Complaint: screening Allergies: Allergies Allergy/AdvReac Type Severity Reaction Status Date / Time No Known Allergies Allergy Mild NONE Verified 03/07/24 11:57 Plan I have reviewed the history and physical and performed a pertinent physical examination on my patient. No changes have occurred unless specified. Time Spent With Patient Time: Total time managing care of this patient today ____ minutes.
[2024-08-02 12:01] VITALS: BP 155/62; PULSE 68; RESP 19; TEMP 36.9; O2SAT 97; BMI 31.5
[2024-08-02] MEDS: Lactated Ringers 1,000 ML 100 ML IVCONT (12:16)
--- NOTE | 2024-08-02 12:27 | P.CONAN_ITS ---
[facility], LAT[facility] Active Problems Active Problems: All Active Problems Ingrown toenail of both feet (Acute) Cataract (Acute) Lower urinary tract symptoms (Acute) Bladder wall thickening (Acute) Enlarged prostate (Acute) Urinary retention (Acute) BPH w urinary obs/LUTS (Acute) History of colonoscopy (Acute) Normal colonoscopy (Acute) Depression (Acute) Hyperlipidemia (Acute) HTN (hypertension) (Acute) Annual physical exam (Acute) Past Medical History Medical History Elevated cholesterol Bipolar 1 disorder Chest pain Normal colonoscopy Depression Hyperlipidemia HTN (hypertension) Annual physical exam Functional capacity: independent ambulation Family History Family History Father Gastritis Mother Cardiac disease Diabetes mellitus Brother No problems noted. Brother No problems noted. Sister No problems noted. Sister No problems noted. Family history of problems with anesthesia: No Surgical History Surgical History Hx of bilateral cataract extraction History of colonoscopy History of inguinal hernia repair History of Problems with Anesthesia: No Social History Social History Housing: House Patient Tobacco Use Status: Never used Tobacco e-Cigarette/Vaping Use: Never Used Have you been hit, kicked, punched, or otherwise hurt by someone within the past year? If so, by whom?: No Are you DNR?: No Advance Directives: No Advance Directives Information Provided: Yes Recently lost weight without trying: No Nutrition Risks: No Nutritional Risk Current occupational status: retired Cognitive needs: No Hearing needs: No Vision needs: Yes Meds Allergies Allergy/AdvReac Type Severity Reaction Status Date / Time No Known Allergies Allergy Mild NONE Verified 03/07/24 11:57 Active Medications: Current Medications Lactated Ringer's (Lr) 1,000 mls @ 100 mls/hr IVCONT .Q10H JAZ Last Admin: 08/02/24 12:16 Dose: 100 mls/hr Home Medications ?Medication ?Instructions ?Recorded ?Confirmed ?Last Taken ?Type divalproex 500 mg tablet,extended 500 mg PO BID 01/02/21 07/28/24 Unknown History release 24 hr (Depakote ER) benztropine 0.5 mg tablet 0.5 mg PO BID 06/30/22 07/28/24 Unknown History aspirin 81 mg tablet,delayed 81 mg PO DAILY 02/15/24 07/28/24 07/25/24 History release cholecalciferol (vitamin D3) 50 50 mcg PO DAILY 02/15/24 07/28/24 Unknown History mcg (2,000 unit) tablet finasteride 5 mg tablet 5 mg PO DAILY 07/28/24 07/28/24 Unknown History haloperidol 2 mg tablet 4 mg PO BEDTIME 07/28/24 07/28/24 Unknown History tamsulosin 0.4 mg capsule (Flomax) 0.4 mg PO BEDTIME 07/28/24 07/28/24 Unknown History Exam Height,Weight and Vital Signs: Height 5 ft 9.5 in Weight 98.2 kg Last Vital Signs Temp 98.5 F 08/02/24 12:01 Pulse 68 08/02/24 12:01 Resp 19 08/02/24 12:01 BP 155/62 H 08/02/24 12:01 Pulse Ox 97 08/02/24 12:01 O2 Del Method Room Air 08/02/24 12:01 Airway Mallampati Class: II TM Dist: >3cm Neck ROM: Full Heart: RRR Lungs: CTA Assessment and Plan Assessment Anesthesia Assessment: Anesthesia Plan Discussed Final Anesthetic Review Family History of Problems with Anesthesia: No History of Problems with Anesthesia: No NPO: Yes ASA Class: II Final Preanesthetic Review: Meds/Allgs Chart Reviewed, Consent Obtained/Reviewed and Anes Risks/Benef Reviewed Patient Risk: Low Procedure Risk: Low Anesthetic Plan Anesthetic Plan: MAC: Disposition: Standard PACU
[2024-08-02 12:50] VITALS: BP 95/50; PULSE 58; RESP 16; TEMP 37.1; O2SAT 96
[2024-08-02 13:05] VITALS: BP 113/64; PULSE 57; RESP 16; O2SAT 95
[2024-08-02 13:19] VITALS: BP 111/66; PULSE 55; RESP 16; TEMP 36.8; O2SAT 95
--- NOTE | 2024-08-02 14:32 | OP_ITS ---
DATE OF SERVICE: 08/02/2024 SURGEON: Javier Lee MD INDICATIONS: Colon cancer screening. PREOPERATIVE DIAGNOSIS: POSTOPERATIVE DIAGNOSIS: PROCEDURE PERFORMED: Colonoscopy to the terminal ileum with snare polypectomy. ESTIMATED BLOOD LOSS: COMPLICATIONS: ANESTHESIA: Monitored anesthesia care. ASSISTANTS: SPECIMENS: DESCRIPTION OF PROCEDURE: A history and physical was performed. The risks and benefits of the procedure were explained to the patient and informed consent was obtained. The patient was placed in the left lateral decubitus position. A digital rectal exam was performed and was found to be normal. The Olympus pediatric video colonoscope was introduced in the rectum and advanced to the cecum. The cecum was identified by transillumination, palpation, and identification of ileocecal valve. Examination was performed and the scope was removed. He tolerated the procedure well and was returned to recovery area in stable condition. FINDINGS: The terminal ileum was normal. The visualized colonic mucosa was normal. The quality of the prep was good. A single polyp was identified measuring approximately 5 mm. This was removed with a snare. This was located in the cecum. No other polyps were identified. There was mild sigmoid diverticulosis. Retroflexed examination showed small internal hemorrhoids. IMPRESSION: Colon polyp. RECOMMENDATION: Follow up the biopsy results. MD KAYKAY Moncada/BRIGITTEL / [id number]
== END 2024-08-02 13:59 | disposition home or self-care (01) ==
PROVIDERS: PCP Internal Medicine; Visit Provider Internal Medicine Gastroenterology
PROC: 0DJD8ZZ Inspection of Lower Intestinal Tract, Via Natural or Artificial Opening Endoscopic (ICD-10-PCS; CPT 45378; principal; 2024-08-02 11:10)
DX: Z12.11 Encounter for screening for malignant neoplasm of colon (principal); Z86.010 Personal history of colon polyps; K63.5 Polyp of colon; K57.30 Diverticulosis of large intestine without perforation or abscess without bleeding; K64.8 Other hemorrhoids; I10 Essential (primary) hypertension; E78.00 Pure hypercholesterolemia, unspecified; F31.9 Bipolar disorder, unspecified; Z79.82 Long term (current) use of aspirin; Z79.899 Other long term (current) drug therapy; Z56.0 Unemployment, unspecified
CPT/HCPCS: 45385; 88305; J2704

== ENCOUNTER 2024-08-08 08:45 | Outpatient (REF) | payer MEDICARE, MEDICAID, SELFPAY ==
[2024-08-08 10:15] LABS: MANUAL DIFF FLAG NO
[2024-08-08 10:19] LABS: Basophils Percent Auto 0.7 % (0-2); Eosinophils Absolute Auto 0.2 X10*3/uL (0.0-0.4); Eosinophils Percent Auto 4.3 % (0-4); Hematocrit 41.4 % (42.0-52.0); Hemoglobin 13.9 g/dl (14.0-18.0); Imm Gran Abs Auto 0.01 X10*3/uL (0.00-0.03); Imm Gran Pct Auto 0.2 % (0.0-0.4); Lymphocytes Absolute Auto 1.8 X10*3/uL (1.2-4.9); Lymphocytes Percent Auto 42.3 % (20-40); Mean Corpuscular HGB Conc 33.6 g/dl (31.0-36.0); Mean Corpuscular Hemoglobin 28.9 pg (27.0-33.0); Mean Corpuscular Volume 86.1 fL (80.0-98.0); Mean Platelet Volume 10.6 fL (9.4-12.4); Monocytes Absolute Auto 0.4 X10*3/uL (0.1-1.2); Monocytes Percent Auto 9.8 % (2-11); Neutrophils Absolute Auto 1.8 x10*3/uL (2.0-8.3); Neutrophils Percent Auto 42.7 % (45-73); Platelet Count 216 X10*3/uL (160-400); Red Blood Count 4.81 X10*6/uL (4.60-5.80); Red Cell Distribution Width 12.4 % (11.0-16.0); White Blood Count 4.2 X10*3/uL (4.8-10.8)
[2024-08-08 10:45] LABS: Alanine Aminotransferase 19 U/L (0-40); Albumin Level 4.1 g/dL (3.5-5.0); Alkaline Phosphatase 59 U/L (39-117); Anion Gap 11 (12-20); Aspartate Amino Transferase 14 U/L (5-37); Bilirubin Total 0.5 mg/dL (0.0-1.0); Blood Urea Nitrogen 15 mg/dL (9-16); Calcium 9.7 mg/dL (8.4-10.2); Carbon Dioxide 28 mmol/L (22-29); Chloride 107 mmol/L (96-108); Cholesterol 160 mg/dL (<200); Estimated Glomerular Filt Rate 60; Glucose Fasting 104 mg/dL (60-99); HDL Cholesterol 47 mg/dL (>40); LDL Cholesterol Calculated 94 mg/dL (<100); Potassium 3.9 mmol/L (3.3-5.1); Sodium 142 mmol/L (135-145); Triglycerides 95 mg/dL (<150)
[2024-08-08 11:02] LABS: Valproate 49.9 mcg/mL (50.0-100.0)
[2024-08-08 11:03] LABS: Vitamin D 25-OH Total 56.3 ng/mL (>30)
[2024-08-08 11:33] LABS: Amylase 89 U/L (28-100)
== END 2024-08-08 08:46 | disposition home or self-care (01) ==
LOC: HO.HMGCLDS 08:45
PROVIDERS: PCP Internal Medicine; Referring Provider Clinical Nurse Specialist Psychiatric/Mental Health; Visit Provider Internal Medicine
DX: E78.5 Hyperlipidemia, unspecified (principal); I10 Essential (primary) hypertension; H26.9 Unspecified cataract
CPT/HCPCS: 36415; 80053; 80061; 80164; 82150; 82306; 85025

== ENCOUNTER 2024-08-15 13:24 | Outpatient (AMB) | payer MEDICARE, MEDICAID, SELFPAY ==
--- NOTE | 2024-08-15 13:36 | MHC.PC.OV ---
Vital Signs 08/15/24 13:38 Height 5 ft 9.5 in Weight 217 lb BMI 31.6 BP 110/66 Blood Pressure Location Lt brachial Position Sitting Pulse 64 Pulse Source Pulse Oximeter Pulse Oximetry (%) 95 Oxygen Delivery Method Room Air Intake Visit Reasons: PE Intake Note: Pt is here today for PE. Allergies No Known Allergies Allergy (Mild, Verified 08/15/24 13:39) NONE Medication List - Last Reconciled 08/15/24 by Lor Jeffrey MD aspirin 81 mg PO DAILY atorvastatin 10 mg PO DAILY benztropine 0.5 mg PO BID cholecalciferol (vitamin D3) 50 mcg PO DAILY divalproex ER (Depakote ER) 500 mg PO BID finasteride 5 mg PO DAILY haloperidol 4 mg PO BEDTIME lisinopril-hydrochlorothiazide 20-12.5 mg 1 tab PO DAILY tamsulosin (Flomax) 0.4 mg PO BEDTIME Tobacco use date assessed: 08/15/24 Fall risk assessment: No Falls in past year Last assessed Fall Risk: 08/15/24 Dental Screening Dental Screen Date: 02/15/24 HPI PE HPI Details Patient presents for physical PFSH Medical History Elevated cholesterol Bipolar 1 disorder Chest pain Normal colonoscopy Depression Hyperlipidemia HTN (hypertension) Annual physical exam Surgical History (Updated 08/15/24 @ 14:06 by Lor Jeffrey MD) Hx of bilateral cataract extraction History of colonoscopy History of inguinal hernia repair Family History Father Gastritis Mother Cardiac disease Diabetes mellitus Brother No problems noted. Brother No problems noted. Sister No problems noted. Sister No problems noted. Social History Housing: House Patient Tobacco Use Status: Never used Tobacco e-Cigarette/Vaping Use: Never Used service: No Current occupational status: retired Cognitive needs: No Hearing needs: No Vision needs: Yes Questionnaire PHQ-9 Over the last 2 weeks, how often have you been bothered by any of the following problems? 1. Little interest or pleasure in doing things: not at all 2. Feeling down, depressed, or hopeless: not at all 3. Trouble falling or staying asleep, or sleeping too much: not at all 4. Feeling tired or having little energy: not at all 5. Poor appetite or overeating: not at all 6. Feeling bad about yourself - or that you are a failure or have let yourself or your family down: not at all 7. Trouble concentrating on things, such as reading the newspaper or watching television: not at all 8. Moving or speaking so slowly that other people could have noticed. Or the opposite - being so fidgety or restless that you have been moving around a lot more than usual: not at all 9. Thoughts that you would be better off or of hurting yourself in some way: not at all Total score: 0 Depression Screening Interpretation: Negative Depression Screening Done: Yes 77613 - PHQ-9 Billing: Yes Source: Developed by Drs. Kulwant Whaley, Claudia Juarez, José Luis Donahue and colleagues, with an educational marisela from [employer]. Thrive Questionnaire Date Thrive assessed: 08/15/24 I am a: Patient What is your living situation today?: I have a steady place to live Within the past 12 months, did the food you bought not last and you didn't have the money to get more?: Never true Within the past 12 months, did you worry whether your food would run out before you got money to buy more?: Never true Do you have trouble paying for medicines?: No Do you have trouble getting transportation to medical appointments?: No Do you have trouble paying your heating and electricity bill?: No Do you have trouble taking care of your child, family member or friend?: No Do you have trouble with day-to-day activities such as bathing, preparing meals, shopping, managing finances, etc.?: No Are you interested in more education?: No Please select the resources that you would like help with: None Currently or been in a relationship where the following occur: No concerns reported THRIVE Score: 0 AUDIT C Alcohol Use Questionnaire (AUDIT-C) 1. How often do you have a drink containing alcohol?: Never 3. How often do you have six or more drinks on one occasion?: Never Total Score: 0 DALTON-7 AMB Questionnaire DALTON-7 Date DALTON - 7 assessed: 09/16/24 Feeling nervous, anxious, or on edge: 0 = Not at all Not being able to stop or control worryin = Not at all Worrying too much about different things: 0 = Not at all Trouble relaxin = Not at all Being so restless that it is hard to sit still: 0 = Not at all Becoming easily annoyed or irritable: 0 = Not at all Feeling afraid as if something awful might happen: 0 = Not at all Total DALTON-7 score (0-4 normal; 5-9 mild; 10-14 moderate; 15-21 severe): 0 Source: Developed by Drs. Kulwant Whaley, Claudia Juarez, José Luis Donahue and colleagues, with an educational marisela from [employer]. Review of Systems Const All systems reviewed & are unremarkable except as noted in HPI and below Eyes Reports no additional complaints Card Reports no additional complaints Resp Reports no additional complaints GI Reports no additional complaints Reports no additional complaints Physical exam (Primary Care) Vital Signs: Last Vital Signs Pulse 64 08/15/24 13:38 BP 110/66 08/15/24 13:38 Pulse Ox 95 08/15/24 13:38 Oxygen Delivery Method Room Air 08/15/24 13:38 BMI result Body Mass Index 31.6 Tobacco/Smoking Status: Tobacco use Status Tobacco use date assessed 08/15/24 08/15/24 13:42 Patient Tobacco Use Status Never used Tobacco 08/15/24 13:42 e-Cigarette/Vaping Use Never Used 08/15/24 13:42 PHQ-9: PHQ-9 Score PHQ-9: Total score 0 08/15/24 13:42 Depression Screening Interpretation: Negative Thrive Assessment: Date of Thrive Assessment Date Thrive assessed 08/15/24 08/15/24 13:42 Currently or been in a relationship where the following occur: No concerns reported Const General: no acute distress HENMT Head: Yes normal to inspection Face and sinus: Yes normal facial exam Neck Neck: Yes no lymphadenopathy and Yes supple Resp Effort & Inspection: normal respiratory effort Auscultation: clear to auscultation bilaterally Cardio Rhythm: regular rhythm Heart sounds: S1 normal heart sound present and S2 normal heart sound present GI Inspection: Yes normal to inspection Palpation (GI): Soft to palpation Percussion: Yes normal to percussion Auscultation: normal bowel sounds Assessment and Plan Assessment & Plan (1) Hyperlipidemia: Code(s): E78.5 - Hyperlipidemia, unspecified Plan: Continue atorvastatin (2) HTN (hypertension): Code(s): I10 - Essential (primary) hypertension Plan: Continue current medications (3) Annual physical exam: Code(s): Z00.00 - Encounter for general adult medical examination without abnormal findings Plan: Well-balanced diet regular physical activity weight loss discussed with the patient return in 1 year for physical with a fasting labs before Orders: Orders Complete Blood Count Auto Diff 1 Year E78.5 - Hyperlipidemia, unspecified, I10 - Essential (primary) hypertension, Z00.00 - Encounter for general adult medical examination without abnormal findings Lipid Panel 1 Year E78.5 - Hyperlipidemia, unspecified, I10 - Essential (primary) hypertension, Z00.00 - Encounter for general adult medical examination without abnormal findings UA w Microscopic 1 Year E78.5 - Hyperlipidemia, unspecified, I10 - Essential (primary) hypertension, Z00.00 - Encounter for general adult medical examination without abnormal findings Comprehensive Coyote. Panel Fast 1 Year E78.5 - Hyperlipidemia, unspecified, I10 - Essential (primary) hypertension, Z00.00 - Encounter for general adult medical examination without abnormal findings Medications: New tamsulosin (Flomax) 0.4 mg PO BEDTIME 90 caps 3RF Changed From finasteride 5 mg orally 3 times per week; Take 1 tablet 3 times per week; Thursday Or Thursday. 5 mg PO DAILY To finasteride 5 mg PO DAILY Refilled lisinopril-hydrochlorothiazide 20-12.5 mg 1 tab PO DAILY 90 tabs 3RF atorvastatin 10 mg PO DAILY 90 tabs 3RF Coding Level of Care Code Est Pt Prev Care >65y(04974) Diagnoses Hyperlipidemia E78.5 HTN (hypertension) I10 Annual physical exam Z00.00
[2024-08-15 13:38] VITALS: BP 110/66; PULSE 64; O2SAT 95; BMI 31.6
== END 2024-08-15 14:07 | disposition home or self-care (01) ==
PROVIDERS: PCP Internal Medicine; Visit Provider Internal Medicine
DX: Z00.00 Encounter for general adult medical examination without abnormal findings (principal); E78.5 Hyperlipidemia, unspecified; I10 Essential (primary) hypertension

== ENCOUNTER → 2024-08-15 13:24 | Outpatient (BNVA) | payer MEDICARE, MEDICAID, SELFPAY | PROVIDERS: PCP Internal Medicine; Visit Provider Internal Medicine | DX: Z00.00 Encounter for general adult medical examination without abnormal findings (principal); E78.5 Hyperlipidemia, unspecified; I10 Essential (primary) hypertension | CPT/HCPCS: 99397 ==

== ENCOUNTER 2024-08-23 09:57 | Outpatient (REF) | payer MEDICARE, MEDICAID, SELFPAY ==
[2024-08-23 15:18] LABS: Prostate Specific Antigen 0.91 ng/mL (<0.05-4.0)
== END 2024-08-23 09:58 | disposition home or self-care (01) ==
LOC: HO.HMGCLDS 09:57
PROVIDERS: PCP Internal Medicine; Visit Provider Nurse Practitioner Family
DX: N40.0 Benign prostatic hyperplasia without lower urinary tract symptoms (principal); Z12.5 Encounter for screening for malignant neoplasm of prostate
CPT/HCPCS: 36415; 84153

== ENCOUNTER 2024-09-06 12:52 | Outpatient (AMB) | payer MEDICARE, MEDICAID, SELFPAY ==
--- NOTE | 2024-09-06 13:15 | A.OFFVIS_ITS ---
Intake Visit Reasons: 6m/PSA(set) Intake Note: Patient presents for follow up visit for BPH Urology Medications: Tamsulosin and Finasteride Blood Thinner: none PVR: 63ml's Service Bar Cashier Required: No Accompanied by: Self / Same As Patient Allergies No Known Allergies Allergy (Mild, Verified 09/06/24 13:39) NONE Medication List - Last Reconciled 09/06/24 by QUIN Crenshaw-KAYKAY aspirin 81 mg PO DAILY atorvastatin 10 mg PO DAILY benztropine 0.5 mg PO BID cholecalciferol (vitamin D3) 50 mcg PO DAILY divalproex ER (Depakote ER) 500 mg PO BID finasteride 5 mg PO DAILY haloperidol 4 mg PO BEDTIME lisinopril-hydrochlorothiazide 20-12.5 mg 1 tab PO DAILY tamsulosin (Flomax) 0.4 mg PO BEDTIME HPI Comments Details: Gato is a very pleasant 69-year-old male patient of Dr. Jeffrey. He has a past medical history of depression, hyperlipidemia, hypertension. He presents to the office today for follow-up. In discussion with the patient today reports to be doing and feeling well. He reports compliance with 0.8 mg of Flomax daily as well as 5 mg of finasteride. Recent PSA results reviewed and trended with the patient below. He currently denies any bothersome urinary issues. He reports to be happy with current voiding parameters on his urological medications. Previous workup has included a bladder ultrasound noting the bladder is well distended. There is mild bladder wall thickening, particularly posteriorly. No stone or mass. Bilateral ureteral jets are demonstrated. Pre void bladder volume is approximately 540 mL. Post void bladder volume is approximately 265 mL. The prostate gland is enlarged and protrudes into the base of the bladder. Prostate gland measures 12 x 9 x 9.5 cm, volume of approximately 96 mL. In office urinalysis results reviewed with the patient today. PVR 63 mL. PSAs are as follows: 3/191.6, 06/18 2.9, 07/20 2.4, 07/20 2.3, 06/20 2.5, 12/22 2.9, 01/23 1.0, 08/23 0.9 Discussed drop in PSA. Discussed bladder triggers/irritants. He discusses his recent cataract surgery this past summer and how helpful this has been. Patient otherwise denies any other issues or concerns at this time. [facility] Medical History Elevated cholesterol Bipolar 1 disorder Chest pain Normal colonoscopy Depression Hyperlipidemia HTN (hypertension) Annual physical exam Surgical History Hx of bilateral cataract extraction History of colonoscopy History of inguinal hernia repair Family History Father Gastritis Mother Cardiac disease Diabetes mellitus Brother No problems noted. Brother No problems noted. Sister No problems noted. Sister No problems noted. Social History Housing: House Patient Tobacco Use Status: Never used Tobacco e-Cigarette/Vaping Use: Never Used service: No Current occupational status: retired Cognitive needs: No Hearing needs: No Vision needs: Yes Review of Systems Const Reports no additional complaints Eyes Reports no additional complaints ENT Reports no additional complaints Card Reports as per HPI Resp Reports no additional complaints GI Reports no additional complaints Reports as per HPI Musc Reports no additional complaints Neuro Reports no additional complaints Psych Reports as per HPI Endo Reports no additional complaints Physical Exam Const General: cooperative, healthy appearing, comfortable, no acute distress, well developed, alert and awake Orientation/consciousness: patient oriented x3 Limitations: no limitations HEENT Head: Yes normal to inspection, Yes normocephalic and Yes atraumatic Ears: hearing grossly normal bilaterally Eyes General: appearance normal, both eyes and all related structures Neck Neck: Yes normal visual inspection and Yes trachea midline Chest Chest palpation & inspection: normal inspection of the chest Resp Effort & Inspection: normal respiratory effort and able to speak in complete sentences Cardio Rate: regular rate GI Inspection: Yes normal to inspection General: Yes no CVA tenderness Back/Spine/Pelvis Back: no CVA tenderness Skin General skin exam: no rashes or lesions noted Neuro General: patient oriented x3 Extrem General: Yes normal to inspection Psych Appearance: grossly normal and well kempt Mental Status: mental status grossly normal Speech and movement: Normal speech and movement present and Clear speech present Affect: normal affect Attitude: cooperative Thought process: Normal thought process present Thought content: Normal thought content present Insight: Fair insight present (Psych) Judgement: Fair judgement present (Psych) Office Procedures Post Void Residual Post Residual Void Post Void Residual (PVR): 63 [id number]-Umml Void Residual by ultrasound Results AMB Urinalysis, Automated UA Leukoctes 0 Mari/uL Last Edit by Snowman on 09/06/24 13:41 UA Nitrite Last Edit by Snowman on 09/06/24 13:41 UA Urobilinogen 0.2 mg/dL Last Edit by Snowman on 09/06/24 13:41 UA Protein 0 mg/dL Last Edit by Snowman on 09/06/24 13:41 UA pH 6.0 Last Edit by Snowman on 09/06/24 13:41 UA Blood 0 Jesus/uL Last Edit by Snowman on 09/06/24 13:41 UA Specific Kenton 1.005 Last Edit by Snowman on 09/06/24 13:41 UA Ketone Negative Last Edit by Snowman on 09/06/24 13:41 UA Bilirubin 0 mg/dL Last Edit by Snowman on 09/06/24 13:41 UA Glucose 0 mg/dL Last Edit by Snowman on 09/06/24 13:41 Results Reviewed Results Reviewed: Laboratory Last Values Urine pH (Auto) 6.0 09/06/24 13:32 Specific Kenton (Auto) 1.005 09/06/24 13:32 Urine Protein (Auto) 0 mg/dL 09/06/24 13:32 Glucose (UA)(Auto) 0 mg/dL 09/06/24 13:32 Urine Ketones (Auto) Negative 09/06/24 13:32 Urine Blood (Auto) 0 Jesus/uL 09/06/24 13:32 Urine Bilirubin (Auto) 0 mg/dL 09/06/24 13:32 Urine Urobilinogen (Auto) 0.2 mg/dL 09/06/24 13:32 Leukocyte Esterase (Auto) 0 Mari/uL 09/06/24 13:32 Assessment & Plan Assessment & Plan (1) Enlarged prostate: Code(s): N40.0 - Benign prostatic hyperplasia without lower urinary tract symptoms Category: Medical (2) Lower urinary tract symptoms: Code(s): R39.9 - Unspecified symptoms and signs involving the genitourinary system Category: Medical (3) Bladder wall thickening: Code(s): N32.89 - Other specified disorders of bladder Category: Medical Plan In office urinalysis results reviewed with the patient today. PVR 63 mL. Continue Flomax 0.8 mg daily as discussed and prescribed. Continue finasteride; Thursday. Recent PSA results reviewed with the patient today. Patient reports be happy with current voiding parameters on Flomax and finasteride Patient denies any bothersome urinary issues or concerns at this time. Will obtain PSA in 1 year Follow-up in one month with lab to be completed prior and PVR at next office visit; or sooner with any issues, concerns, and or questions. Orders: Orders AMB Post Void Residual by ultrasound Today R39.9 - Unspecified symptoms and signs involving the genitourinary system AMB Urinalysis Automated Today Z13.9 - Encounter for screening, unspecified Prostate Specific Antigen 1 Year N13.8 - Other obstructive and reflux uropathy, N40.0 - Benign prostatic hyperplasia without lower urinary tract symptoms, N40.1 - Benign prostatic hyperplasia with lower urinary tract symptoms Patient Instructions: The patient had an opportunity to ask questions regarding the treatment plan. All questions were answered. Physical exam, labs, and imaging were discussed and reviewed in detail. As well as risks, benefits, and discussion of treatment choices. No major barriers to understanding were identified. The patient expressed understanding and agreement with the above treatment plan. The patient was made aware they should contact our office by phone for worsening of their current condition, the appearance of new symptoms, or with any questions or concerns. Compliance is encouraged with any medications and follow up testing that is ordered. It is a privilege to be allowed the opportunity to participate in? your urological care.? Again, if you have any questions or con cerns If you have any questions or concerns please do not hesitate to contact me. The office is [phone]. This note is constructed using voice recognition software. While every effort has been made to ensure accuracy reading interventionist errors may have been included. Yours sincerely, QUIN Crenshaw- Coding Level of Care Code Est Pt Level 3 (09640) Diagnoses Enlarged prostate N40.0 Lower urinary tract symptoms R39.9 Bladder wall thickening N32.89 CPT Codes Post Residual Void - PVR CPT Code: 97971-[id number] Void Residual by ultrasound ([id number])
== END 2024-09-06 13:49 | disposition home or self-care (01) ==
PROVIDERS: PCP Internal Medicine; Visit Provider Nurse Practitioner Family
DX: N40.0 Benign prostatic hyperplasia without lower urinary tract symptoms (principal); R39.9 Unspecified symptoms and signs involving the genitourinary system; N32.89 Other specified disorders of bladder; Z13.9 Encounter for screening, unspecified
CPT/HCPCS: 99213

== ENCOUNTER → 2024-09-06 12:52 | Outpatient (BNVA) | payer MEDICARE, MEDICAID, SELFPAY | PROVIDERS: PCP Internal Medicine; Visit Provider Nurse Practitioner Family | DX: N40.1 Benign prostatic hyperplasia with lower urinary tract symptoms (principal); R39.9 Unspecified symptoms and signs involving the genitourinary system; N32.89 Other specified disorders of bladder | CPT/HCPCS: 51798; 81003; 99212 ==

== ENCOUNTER 2025-01-03 07:53 | Emergency (ER) | payer MEDICARE, MEDICAID, SELFPAY ==
[2025-01-03] VITALS (7 sets, daily range): BP systolic 121–144; BP diastolic 45–90; PULSE 56–90; RESP 16–18; TEMP 36.6–36.8; O2SAT 93–98; BMI 34.4
--- NOTE | ~2025-01-03 | CT_ITS ---
EXAMINATION: CT SOFT TISSUE NECK WITH CONTRAST CLINICAL INFORMATION: Swelling. Difficulty swallowing. COMPARISON: None available. TECHNIQUE: Following the intravenous administration of 80 mL of Omnipaque 350 intravenous contrast, helical imaging was performed in the axial plane with generation of coronal and sagittal reformatted images. This CT examination was performed using dose optimization techniques as appropriate, variously including the following: *Automated exposure control *Adjustment of mA and/or kV according to patient size (this includes techniques or standardized protocols for targeted exams where dose is matched to indication/reason for exam; i.e. extremities or head) *Use of iterative reconstruction technique DLP: 888 mGy centimeter. FINDINGS: There is an irregularly-shaped soft tissue fullness/increased density fluid extending through the retropharynx from C2-3 to C7 resulting in mass effect upon the posterior wall of the oropharynx and to the right side of the right thyroid lobe. There is narrowing of the upper airway involving the oropharynx and supraglottic region. The epiglottis is not enlarged. The arytenoepiglottic folds are not enlarged. The sublingual and submandibular compartments demonstrated no gross masses or fluid collections. Skull base, nasopharynx demonstrated no gross masses or fluid collections. The oral cavity demonstrated no gross lesions. The soft palate is normal. The palatine tonsils are not enlarged. The submandibular glands are not enlarged. There is no sialolithiasis. The printer machine compartments and left carotid compartment are normal. There is edema pattern increased density fluid in the right carotid compartment. The vessels are patent without focal narrowing or intimal flap. Multilevel cervical spondylosis with incomplete ankylosis C3-4 grade 1 anterolisthesis C4-5. CT/CT soft tissue neck w IV con IMPRESSION: Concerning parapharyngeal abscess extending from C2 to C7 causing upper airway obstruction in the hypopharynx. Discussed with the referring physician Dr. Della Ann in the emergency department at 3:15 PM Electronically signed by: Zaid Parada MD 01/03/2025 02:20 PM [facility]
--- NOTE | ~2025-01-03 | CT_ITS ---
EXAMINATION: CT CHEST WITH CONTRAST CLINICAL INFORMATION: Difficulty swallowing. Ecchymosis. Swelling. COMPARISON: None available. TECHNIQUE: Multidetector volumetric CT imaging of the chest was obtained after the administration of 80 mL of Omnipaque 350 intravenous contrast without immediate adverse reactions. Axial MIP volume rendering provided. Sagittal and coronal reformatted images were obtained. This CT examination was performed using dose optimization techniques as appropriate, variously including the following: *Automated exposure control *Adjustment of mA and/or kV according to patient size (this includes techniques or standardized protocols for targeted exams where dose is matched to indication/reason for exam; i.e. extremities or head) *Use of iterative reconstruction technique DLP: 506.81 mGy centimeter. FINDINGS: Increased density is soft tissue swelling/masslike appearance surrounding the right thyroid lobe and the retropharyngeal. No mediastinal lymphadenopathy. No aneurysm or dissection in the thoracic aorta. Calcified plaques in the thoracic aorta wall extending branches and the coronary arteries. For evaluation of the pulmonary artery lumen. Linear and patchy pulmonary groundglass in the lung bases. No pneumothorax. No hemothorax. No pleural effusion. No pericardial effusion. No pneumomediastinum. Nonspecific 1 mm pulmonary nodule, right lung. Respiratory airways is patent. The included clavicles are intact. The sternum is intact. Multilevel cervical thoracic and upper lumbar spondylosis without acute fracture or listhesis. The ribs are intact. The scapula is intact bilaterally. CT/CT chest w IV con IMPRESSION: Edema pattern versus hematoma involving the right thyroid and retro laryngeal Fleischner guidelines were followed. Electronically signed by: Zaid Parada MD 01/03/2025 02:03 PM [facility]
--- OUTSIDE RECORDS SUMMARY | 2025-01-03 08:12 | XMS_ITS | Encounter Summary ---
Author Organization [employer] Address [address] [place] [address] Care Team Providers Care Occupational Therapy Program Director Name Role Phone Unavailable Primary Care Provider Unavailabl e Encounter Details Date Type Department Care Team (Latest Contact Info) Description 10/12/2019 Abstract [facility] CONVERSIONS Dental, Provider, DDS Social History Tobacco Use Types Packs/Day Years Used Date Smoking Tobacco: Never Assessed Sex and Gender Information Value Date Recorded Sex Assigned at Male 09/29/2022 10:24 AM EDT Legal Sex Male 10:24 AM EDT Gender Identity Male 09/29/2022 10:24 AM EDT Sexual Orientation Choose not to disclose 2021 10:24 AM EDT documented as of this encounter Plan of Treatment Upcoming Encounters Date Type Department Care Team (Late st Contact Info) Description 03/24/2025 1:00 PM EDT Office Visit [facility] ADULT DENTAL [address] [place] [address] Ara Melendrez [address] [place] [address] documented as of this encounter Visit Diagnoses Not on filedocumented in this encounter
--- OUTSIDE RECORDS SUMMARY | 2025-01-03 08:12 | XMS_ITS | Clinical Summary ---
Author Organization [employer] Address [address] [place] [address] [address] [place] [address] Care Team Providers Care Automation Manager Name Role Phone Unavailable Primary Care Provider Unavailabl e Allergies No known active allergies Medications atorvastatin (Lipitor) 10 MG tablet Take 1 tablet by mouth at bed time. Active benztropine (Cogentin) 0.5 MG tablet Take 0.5 mg by mouth 2 times daily. 03/13/2023 Active cholecalciferol (Vitamin D-3) 50 MCG (1999) capsule Take by mouth in the morning. 03/13/2023 Active lisinopril 20 MG tablet Take 1 tablet by mouth at bed time. Active haloperidol (Haldol) 2 MG tablet TAKE 2 TABLETS BY MOUTH EVERY DAY AT BEDTIME 02/10/2023 Active aspirin 81 MG EC tablet take 1 tablet (81MG) by oral route every day 06/17/2013 Active divalproex (Depakote ER) 500 MG 24 hr tablet Take 500 mg by mouth 2 times daily. 02/10/2023 Active finasteride (Proscar) 5 MG tablet 03/07/2024 Active lisinopril-hydr oCHLOROthiazide 20-12.5 MG tablet 1 tablet in the morning. Active tamsulosin (Flomax) 0.4 MG 24 hr capsule 03/25/2024 Activ e Active Problems Problem Noted Date Diagnosed Date Ill-fitting dentures 07/27/2024 Normal oral exam 07/13/2024 Missing teeth, acquired 05/23/2024 Crowded teeth 03/31/2023 Dental calculus 03/31/2023 Periodontal disease 03/31/2023 Encounters Date Type Department Care Team Description 11/21/2024 Telephone [facility] ADULT DENTAL [address] [place] [address] Ara Melendrez from Last 3 Months Social History Tobacco Use Types Packs/Day Years Used Date Smoking Tobacco: Never Passive Smoke Exposure: Never Smokeless Tobacco: Never Tobacco Cessation:Counseling Given: No Alcohol Use Standard Drinks/Week Comments Defer 0 (1 standard drink = 0.6 oz pur e alcohol) Sex and Gender Information Value Date Recorded Sex Assigned at Male 09/29/2022 10:24 AM EDT Legal Sex Male 10:24 AM EDT Gender Identity Male 09/29/2022 10:24 AM EDT Sexual Orientation Choose not to disclose 2021 10:24 AM EDT Last Filed Vital Signs Vital Sign Reading Time Taken Comments Blood Pressure 128/76 07/27/2024 12:58 PM EDT Pulse 80 07/27/2024 12:58 PM EDT Temperature - - Respiratory Rate - - Oxygen Saturation - - Inhaled Oxygen Concentration - - Weight - - Height - - Body Mass Index - - Plan of Treatment Upcoming Encounters Date Type Department Care Team (Late st Contact Info) Description 03/24/2025 1:00 PM EDT Office Visit [facility]ULT DENT[facility] [address] [place] [address] Ara Melendrez [address] [place] [address] Health Maintenance Due Date Last Done Comments CT Colonography 1954 Colonoscopy 1954 Colorectal Cancer Screening 1954 Depression Screening 1954 FIT DNA/Cologuard 1954 FIT 1954 FOBT 1954 Lipid Panel 1954 SDOH Screening 1954 Sigmoidoscopy 1954 Alcohol/Substance Use Screening 1966 Hepatitis C Screening 1972 DTaP/Tdap/Td Vaccines (1 - Tdap) 1973 Dental Prophylaxis 11/23/2024 05/23/2024, 03/31/2023 Dental Oral Exam 01/14/2025 07/13/2024, 03/31/2023 Dental X-Ray: Bitewings 05/24/2025 05/23/2024, 06/09 Tobacco Screening 07/27/2025 07/27/2024 Dental X-Ray: Full Mouth 05/24/2027 05/23/2024, 03/30 RSV Patients and Patients Aged 60 years or older (1 - 1-dose 75+ series) 2029 Zoster Vaccines Completed 10/25/2018, 12/2017, 12/05/2014, Additional history exists Pneumococcal Vaccine: 50+ Years Completed 08/02/2020, 08/02/2019, 08/01/2013 Influenza Vaccine Completed 07/26/2024, , 08/01/2022, Additional history exists COVID-19 Vaccine Completed 08/04/2024, , 08/14/2022, Additional history exists HIB Vaccines Aged Out No longer eligi ble based on patient's age to complete this topic HPV Vaccines Aged Out No longer eligi ble based on patient's age to complete this topic Hepatitis A Vaccines Aged Out No long er eligible based on patient's age to complete this topic Hepatitis B Vaccines Aged Out No long er eligible based on patient's age to complete this topic IPV Vaccines Aged Out No longer eligi ble based on patient's age to complete this topic Meningococcal Vaccine Aged Out No amaya sallie eligible based on patient's age to complete this topic RSV under 20 months Aged Out No longe r eligible based on patient's age to complete this topic Rotavirus Vaccines Aged Out No longer eligible based on patient's age to complete this topic Procedures Procedure Name Priority Date/Time Associated Diagnosis Comments PERIODIC ORAL EVALUATION - ESTABLISHED PATIENT Routine 07/13/2024 3:30 PM EDT Full PROPHYLAXIS - ADULT Routine 024 3:00 PM EDT Dental plaque Dental calculus DIAGNOSTIC - DIAGNOSTIC IMAGING - INTRAORAL - COMPREHENSIVE SERIES OF RADIOGRAPHIC IMAGES Routine 05/23/2024 3:00 PM EDT Dental plaque Dental calculus Crowded teeth Missing teeth, acquired from Last 3 Months or Most Recently Relevant to Health [place] [address] [place] [id number] [place]
--- OUTSIDE RECORDS SUMMARY | 2025-01-03 08:12 | XMS_ITS | Encounter Summary ---
Author Organization [employer] Address [address] [place] [address] Care Team Providers Care Death Clearance Coordinator Name Role Phone Unavailable Primary Care Provider Unavailabl e Encounter Details Date Type Department Care Team (Latest Contact Info) Description 04/10/2021 Abstract [facility] CONVERSIONS Dental, Provider, DDS Social History [...] Description 03/24/2025 1:00 PM EDT Office Visit [facility] ADULT DENTAL [address] [place] [address] Niko Melendrezaris [address] [place] [address] documented as of this encounter Visit Diagnoses Not on filedocumented in this encounter
--- OUTSIDE RECORDS SUMMARY | 2025-01-03 08:12 | XMS_ITS | Encounter Summary ---
Author Organization [employer] Address [address] [place] [address] Care Team Providers Care Director Of Golf Name Role Phone Unavailable Primary Care Provider Unavailabl e Encounter Details Date Type Department Care Team (Latest Contact Info) Description 06/09/2022 Abstract [facility] CONVERSIONS Dental, Provider, DDS Social History Tobacco [...] Description 03/24/2025 1:00 PM EDT Office Visit [facility] ADULT DENTAL [address] [place] [address] Niko Melendrezaris [address] [place] [address] documented as of this encounter Visit Diagnoses Not on filedocumented in this encounter
--- OUTSIDE RECORDS SUMMARY | 2025-01-03 08:12 | XMS_ITS | Clinical Summary ---
Author Organization [address] [place] [address] Address [address] [place] [address] Phone Care Team Providers Care Floor Worker Well Service Name Role Phone Lor Jeffrey MD Primary Care Provider [phone] Allergies No known active allergies Medications Medication Sig Dispensed Refills Start Date End Date Status clotrimazole (LOTRIMIN) 1 % cream Apply to skin and toenails daily for 12 weeks 08/29/2024 Active haloperidoL (HALDOL) 2 mg tablet Take 2 mg by mouth daily. Active divalproex (DEPAKOTE) [address] tablet Take 500 mg by mouth 2 times daily. Active lisinopril-hydroCHLOR Othiazide (PRINZIDE,ZESTORETIC) 20-12.5 mg per tablet Take 1 tablet by mouth 1 (one) time each day. Active cholecalciferol (VITAMIN D-3) 25 mcg (1,000 unit) capsule Take by mouth. Active aspirin 81 mg EC tablet Take 81 mg by mouth daily. Active Active Problems Problem Noted Date Diagnosed Date Psychiatric disorder 02/25/2012 Mixed hyperlipidemia 02/25/2012 Hypertension 02/25/2012 Borderline diabetes 02/25/2012 Immunizations Name Administration Dates Next Due Moderna SARS-CoV-2 COVID-19, mRNA, LNP-S, preservative free 08/14/2022 Medical History Medical History Date Comments Psychiatric disorder 02/25/2012 DX:Psychiat jaime disorder Hypertension 02/25/2012 DX:Hypertension Borderline diabetes 02/25/2012 DX:Borderlin e diabetes Mixed hyperlipidemia 02/25/2012 DX:Mixed hy perlipidemia Family History Medical History Relation Name Comments Other: sudden cardiac Mother Relation Name Status Comments Mother Social History Tobacco Use Types Packs/Day Years Used Date Smoking Tobacco: Never Alcohol Use Standard Drinks/Week Comments Not Asked 0 (1 standard drink = 0.6 oz pur e alcohol) Sex and Gender Information Value Date Recorded Sex Assigned at Not on file Gender Identity Not on file Sexual Orientation Not on file Job Start Date Occupation Industry Not on file Not on file Not on file Obstetrics History Last Filed Vital Signs Vital Sign Reading Time Taken Comments Blood Pressure - - Pulse - - Temperature - - Respiratory Rate - - Oxygen Saturation - - Inhaled Oxygen Concentration - - Weight 101 kg (221 lb 12.8 oz) 08/29/2024 12:57 PM EDT Height 180.3 cm (5' 11 ) 08/29/2024 12:57 PM EDT Body Mass Index 30.93 08/29/2024 12:57 PM EDT Plan of Treatment Upcoming Encounters Date Type Department Care Team ([facility] st Contact Info) Description 02/14/2025 2:00 PM EDT Office Visit Orthopedic Surgery - [place] [address] [address] Pito Lagos, DPM [address] [address] Health Maintenance Due Date Last Done Comments DTaP,Tdap,and Td Vaccines (1 - Tdap) 1973 Zoster Vaccines (1 of 2) 2004 Pneumococcal Vaccine: 65+ Ye ars (1 of 1 - PCV) 2019 COVID-19 Vaccine (2 - 2023-2 5 season) 2024 08/14/2022 Influenza Vaccine (#1) 2024 Abdominal Aortic Aneurysm (A AA) Screen 09/16/2024 Cholesterol Screening (Lipid Panel) 09/16/2024 Colorectal Cancer Screening: Colonoscopy 09/16/2024 Depression Screening 09/16/2024 Falls Risk Assessment 09/16/2024 Hepatitis C Screening 09/16/2024 Hypertension/CHF/CAD Annual BMP Blood Test 09/16/2024 Medicare Annual Wellness Visit 09/16/2024 Social Influencers of Health Screening 09/16/2024 RSV Immunization Patients 60 + Years Old (1 - 1-dose 75+ series) 2029 HIB Vaccines Aged Out No longer eligi [...] on patient's age to complete this topic MMR Vaccines Aged Out No longer eligi ble based on patient's age to complete this topic Meningococcal ACWY Vaccine Aged Out N o longer eligible based on patient's age to complete this topic RSV Immunization Patients Un kaelyn 20 months Aged Out No longer eligible b ased on patient's age to complete this topic Varicella Vaccines Aged Out No longer eligible based on patient's age to complete this topic Care Teams Floor Worker Well Service Relationship Specialty Start Date End Date Lor Jeffrey MD [address] [place] [address] PCP - General 07/27/24
--- NOTE | 2025-01-03 08:18 | PC.NURSE ---
Pt comes to ED today via EMS from home with c/o difficulty swallowing x4 days in addition to area of bruising to clavicular area--midline. Pt denies any trauma/assault. C/o reports pain and difficulty swallowing foods, liquids are ok. Denies SOB, n/v/d; last BM 01/03/25 A&Ox3, VSS, afebrile.
[2025-01-03 10:38] LABS: Appearance Urine Clear; Color Urine Yellow; Glucose Urine UA Negative (Negative); Leukocyte Esterase Urine Negative (Negative); Nitrite Urine Negative (Negative); PH 7.5 (5.0-9.0); Specific Gravity - Urine <= 1.005 (1.005-1.025); Urine Blood Negative (Negative); Urine Ketones Negative (Negative); Urine Protein Negative (Neg-Trace)
[2025-01-03 10:40] LABS: Bacteria Urine None Seen (None Seen); Hyaline Casts Urine 0-2 /LPF (0-2); RBC Urine 0-2 /HPF (0-2); Squamous Epithelial Cell Urine 0-2 /HPF (0-2); WBC Urine 0-5 /HPF (0-5)
--- NOTE | 2025-01-03 11:04 | ECG_ITS ---
Test Reason : CHEST PAIN Blood Pressure : */* mmHG Vent. Rate : 69 BPM Atrial Rate : 69 BPM P-R Int : 178 ms QRS Dur : 90 ms QT Int : 446 ms P-R-T Axes : 93 -15 46 degrees QTcB Int : 477 ms Sinus rhythm with frequent Premature ventricular complexes Inferior infarct , age undetermined Abnormal ECG No previous ECGs available Referred By: Della Ann Electronically Signed By: Celestine Whyte
[2025-01-03 11:34] LABS: MANUAL DIFF FLAG NO
[2025-01-03] MEDS: dexAMETHasone sod phosphate 4 MG/ML VIAL 6 MG IVPUSH (11:34)
[2025-01-03 11:36] LABS: Basophils Percent Auto 0.4 % (0-2); Eosinophils Percent Auto 0.3 % (0-4); Hematocrit 40.5 % (42.0-52.0); Imm Gran Abs Auto 0.02 X10*3/uL (0.00-0.03); Imm Gran Pct Auto 0.3 % (0.0-0.4); Lymphocytes Absolute Auto 1.6 X10*3/uL (1.2-4.9); Lymphocytes Percent Auto 20.3 % (20-40); Mean Corpuscular HGB Conc 34.6 g/dl (31.0-36.0); Mean Corpuscular Hemoglobin 29.1 pg (27.0-33.0); Mean Corpuscular Volume 84.2 fL (80.0-98.0); Mean Platelet Volume 10.3 fL (9.4-12.4); Monocytes Absolute Auto 0.5 X10*3/uL (0.1-1.2); Monocytes Percent Auto 6.1 % (2-11); Neutrophils Absolute Auto 5.7 x10*3/uL (2.0-8.3); Neutrophils Percent Auto 72.6 % (45-73); Platelet Count 246 X10*3/uL (160-400); Red Blood Count 4.81 X10*6/uL (4.60-5.80); Red Cell Distribution Width 12.3 % (11.0-16.0); White Blood Count 7.9 X10*3/uL (4.8-10.8)
[2025-01-03] MEDS: Piperacillin Sodium/Tazobactam 3.375 GM in 0.9 % Sodium Chloride 50 ML IV (11:37)
[2025-01-03 11:42] LABS: Prothrombin Time 11.8 SEC (10.9-12.4)
[2025-01-03 11:51] LABS: Lactic Acid 1.7 mmol/L (0.5-2.0)
[2025-01-03 11:52] LABS: Alanine Aminotransferase 20 U/L (0-40); Albumin Level 4.2 g/dL (3.5-5.0); Alkaline Phosphatase 60 U/L (39-117); Anion Gap 17 (12-20); Aspartate Amino Transferase 21 U/L (5-37); Bilirubin Direct 0.1 mg/dL (0.0-0.5); Bilirubin Total 0.6 mg/dL (0.0-1.0); Blood Urea Nitrogen 14 mg/dL (9-16); Calcium 9.6 mg/dL (8.4-10.2); Carbon Dioxide 29 mmol/L (22-29); Chloride 102 mmol/L (96-108); Creatinine Clr Calc Pharmacy 72.9; Estimated Glomerular Filt Rate 60; Glucose Random 106 mg/dL (60-115); Lipase 24 U/L (8-78); Magnesium 2.1 mg/dL (1.6-2.6); Potassium 4.1 mmol/L (3.3-5.1); Sodium 144 mmol/L (135-145); Total Protein 7.6 g/dL (6.5-8.0)
[2025-01-03 12:02] LABS: Troponin-I High Sensitivity < 2.7 ng/L (<3.5-35.0)
[2025-01-03 12:13] LABS: IDNOW Serial# 08D9AD1C; Strep A Nucleic Acid Negative (Negative)
--- NOTE | 2025-01-03 12:14 | ED_ITS ---
HPI - General Adult General Chief complaint: General Medical Stated complaint: HURTS TO SWALLOW X4D PER EMS Time Seen by Provider: 01/03/25 10:49 Source: patient and old records reviewed Mode of arrival: ambulatory Limitations: no limitations History of Present Illness ED Provider: RENNY MALIN narrative: 69 yo male with PMH of BPH, HTN, depression, bipolar, HLD here with c/o voice changes, difficulty swallowing x 4 days. He has no CP/SOB, no fevers or any other URI symptoms. He notes last night was really rough and when he woke up he had a large bruise on his central chest without trauma or thinner use. He has never had anything like this before. He has no known sick contacts MD complaint: diff swallowing, bruising to chest Onset (ago): day(s) (4) Location: mouth and chest Radiation: non-radiation Severity: moderate Pain Consistency: intermittent Relieving factors: none Exacerbating factors: other (swallowing) Associated symptoms: denies other symptoms Treatments prior to arrival: none Related Data Home Medications ?Medication ?Instructions ?Recorded ?Confirmed divalproex 500 mg tablet,extended 500 mg PO BID 01/02/21 08/15/24 release 24 hr (Depakote ER) benztropine 0.5 mg tablet 0.5 mg PO BID 06/30/22 08/15/24 aspirin 81 mg tablet,delayed 81 mg PO DAILY 02/15/24 08/15/24 release haloperidol 2 mg tablet 4 mg PO BEDTIME 07/28/24 08/15/24 finasteride 5 mg tablet 5 mg PO DAILY 08/15/24 08/15/24 Previous Rx's ?Medication ?Instructions ?Recorded atorvastatin 10 mg tablet 10 mg PO DAILY #90 tabs 08/15/24 lisinopril 20 1 tab PO DAILY #90 tabs 08/15/24 mg-hydrochlorothiazide 12.5 mg tablet tamsulosin 0.4 mg capsule (Flomax) 0.4 mg PO BEDTIME #90 caps 08/15/24 cholecalciferol (vitamin D3) 50 50 mcg PO DAILY #90 tabs 12/08/24 mcg (2,000 unit) tablet finasteride 5 mg tablet 5 mg PO DAILY 90 days #90 tabs 01/02/25 Allergies Allergy/AdvReac Type Severity Reaction Status Date / Time No Known Allergies Allergy Mild NONE Verified 01/03/25 08:11 Review of Systems 2 Review of Systems: Constitutional : No Fever, No Chills, No Fatigue ENT/Mouth : pos sore throat, No Rhinorrhea Eyes: No Eye Pain, No Swelling, No Redness Cardiovascular : No Chest Pain, No SOB, No Dyspnea on Exertion Respiratory : No Cough, No Sputum Gastrointestinal : No Nausea, No Vomiting, No Diarrhea, No abdominal Pain Genitourinary : No Dysuria, No Urinary Frequency, No Hematuria, Musculoskeletal : No joint pain, No Myalgias, No Joint Swelling Skin : No Skin Lesions, No rash Neuro : No Weakness, No Numbness, No Dizziness, no Headache Psych : No Anxiety/Panic, No Depression Heme/Lymph: No Bruising, No Bleeding,No Lymphadenopathy Endocrine : No Polyuria, No Polydipsia All other systems reviewed and are negative [facility] Past Medical History Attestation statement: The following information was validated with the patient. Source: old records reviewed Medical History Elevated cholesterol Bipolar 1 disorder Chest pain Normal colonoscopy Depression Hyperlipidemia HTN (hypertension) Annual physical exam Surgical History Hx of bilateral cataract extraction History of colonoscopy History of inguinal hernia repair Family History Family History Father Gastritis Mother Cardiac disease Diabetes mellitus Brother No problems noted. Brother No problems noted. Sister No problems noted. Sister No problems noted. Social History Social History Housing: House Patient Tobacco Use Status: Never used Tobacco Smoked in Last 30 Days: No e-Cigarette/Vaping Use: Never Used Use of substances other than those prescribed or required for medical reasons: No Advance Directives: No Advance Directives Information Provided: Yes Do you have a plan to hurt others: No Plan service: No Current occupational status: retired Cognitive needs: No Hearing needs: No Vision needs: Yes Physical Exam ED Vital Signs: Vital Signs - 24 hr 01/03/25 08:09 01/03/25 08:13 01/03/25 10:27 Temperature 97.9 F 97.9 F 98.0 F Pulse Rate 77 77 56 Respiratory Rate 18 18 16 Blood Pressure 141/45 H 141/45 H 121/53 L Pulse Oximetry 95 95 95 Oxygen Delivery Method Room Air Room Air Room Air 01/03/25 13:10 01/03/25 14:06 01/03/25 17:23 Temperature 98.3 F 98.0 F 98.3 F Pulse Rate 63 74 88 Respiratory Rate 16 16 17 Blood Pressure 127/64 132/64 138/75 Pulse Oximetry 97 96 93 Oxygen Delivery Method Room Air Room Air Room Air BMI result Body Mass Index 34.4 Appearance: Alert. Oriented X3. No acute distress. Eyes: Pupils equal, round and reactive to light. ENT: Pharynx moderate erythema, no exudates, uvula midline, mild tonsilar swelling, voice is muffled, no stridor Neck: Normal inspection. Neck supple. CVS: Normal heart rate and rhythm. Pulses normal. Chest: ecchymosis sternal notch but no swelling Respiratory: No respiratory distress. Breath sounds normal. Abdomen: Soft and nontender. Skin: Skin warm and dry. Normal skin color. Normal skin turgor. Extremities: No lower extremity edema. No calf ttp Neuro: Oriented X 3. No motor deficit. No sensory deficit. CN2-12 intact Course Course Course Narrative: signed out to Yaa pending work up Reevaluation(s) Reevaluation #1: Dr. Mon: The patient was signed out to me at change of shift. The patient is a very pleasant 69-year-old male who describes 4 days of increasing difficulty with the swallowing. He has not had any shortness of breath. He denies having had a fever or chills. Somewhat surprisingly he has a finding on a CT of the neck which shows a retropharyngeal collection which may be an abscess. This extends from C2 to C7. It is surprising that he does not have a fever or an elevated white count. The patient had received IV Zosyn and dexamethasone. When the CT results were available I spoke to the [facility] transfer hotline and was connected with the ENT surgeon Dr. Almeida who recommended medical management. My hospitalist are not comfortable admitting this patient without ENT backup so I attempted to transfer the patient to [facility] but they were close to transfer because they were full. I then contacted the transfer hotline at [facility] and spoke again to Dr. Rizo of ENT and then to Dr. Dalton of the hospitalist service who has accepted the patient in transfer. The patient's condition has remained stable. He is still managing his secretions without difficulty and he is still not exhibiting any signs of shortness of breath Time: 17:44 Medications Administered Generic Name Dose Route Start Last Admin Trade Name Freq PRN Reason Stop Dose Admin Dexamethasone Sodium Phosphate 4 mg 01/03/25 18:00 01/03/25 17:29 Dexamethasone Sod Phosphate 4 Mg/Ml Vial IVPUSH 4 mg Q6H JAZ Administration Piperacillin Sod/Tazobactam 100 mls @ 200 mls/hr 01/03/25 18:00 01/03/25 17:29 Sod 4.5 gm/ Sodium Chloride IV 200 mls/hr Q6H JAZ Administration Discontinued Medications Generic Name Dose Route Start Last Admin Trade Name Freq PRN Reason Stop Dose Admin Dexamethasone Sodium Phosphate 6 mg 01/03/25 11:04 01/03/25 11:34 Dexamethasone Sod Phosphate 4 Mg/Ml Vial IVPUSH 01/03/25 11:05 6 mg ONCE ONE Administration Piperacillin Sod/Tazobactam 50 mls @ 100 mls/hr 01/03/25 11:04 01/03/25 12:10 Sod 3.375 gm/ Sodium Chloride IV 01/03/25 11:33 Infused ONCE ONE Infusion Iohexol 100 ml 01/03/25 12:29 01/03/25 12:29 Iohexol 350 Mg/Ml 100 Ml Infus..Btl IV 01/03/25 12:30 80 ml ONCE ONE Administration Medical Decision Making Medical Decision Making [facility] Narrative: 69 yo male with PMH of BPH, HTN, depression, bipolar, HLD here with c/o sore throat x 4 days but no fevers or any other URI symptoms, he has no sick contacts and lives alone, at this time on exam there is swelling with voice changes but no airway compromise or stridor, he also has chest wall ecchymosis. At this time will need basic labs, empiric steroids, zosyn, viral panel/strep and given his swelling - CT neck and chest. Differential Diagnosis Differential Diagnoses: The differential diagnosis associated with the presentation includes deeper space infection, mass Admission/Observation Consideration of admission/observation: Escalation of care including admission/observation considered Lab Data [facility] Lab Attestation statement: I reviewed the patient's lab results. 01/03/25 11:22 01/03/25 11:22 Labs: Lab Results 01/03/25 01/03/25 01/03/25 Range/Units 10:31 11:22 11:23 WBC 7.9 (4.8-10.8) X10*3/uL RBC 4.81 (4.60-5.80) X10*6/uL Hgb 14.0 (14.0-18.0) g/dl Hct 40.5 L (42.0-52.0) % MCV 84.2 (80.0-98.0) fL MCH 29.1 (27.0-33.0) pg MCHC 34.6 (31.0-36.0) g/dl RDW 12.3 (11.0-16.0) % Plt Count 246 (160-400) X10*3/uL MPV 10.3 (9.4-12.4) fL Immature Gran % (Auto) 0.3 (0.0-0.4) % Neut % (Auto) 72.6 (45-73) % Lymph % (Auto) 20.3 (20-40) % [place] % (Auto) 6.1 (2-11) % Eos % (Auto) 0.3 (0-4) % Baso % (Auto) 0.4 (0-2) % Lymph # (Auto) 1.6 (1.2-4.9) X10*3/uL [place] # (Auto) 0.5 (0.1-1.2) X10*3/uL Eos # (Auto) 0.0 (0.0-0.4) X10*3/uL Baso # (Auto) 0.0 (0.0-0.2) X10*3/uL Abs Immat Gran (auto) 0.02 (0.00-0.03) X10*3/uL Absolute Neuts (auto) 5.7 (2.0-8.3) x10*3/uL Absolute Nucleated RBC 0.000 (0.0-0.012) X10*3/uL Nucleated RBC % (auto) 0.0 (0.0-0.2) /100WBC Hold Purple Top SEE NOTE PT 11.8 (10.9-12.4) SEC INR 1.0 (0.9-1.1) Sodium 144 (135-145) mmol/L Potassium 4.1 (3.3-5.1) mmol/L Chloride 102 (96-108) mmol/L Carbon Dioxide 29 (22-29) mmol/L Anion Gap 17 (12-20) BUN 14 (9-16) mg/dL Creatinine 1.20 (0.5-1.4) mg/dL Estim Creat Clear Calc 72.9 Estimated GFR 60 Random Glucose 106 (60-115) mg/dL Lactic Acid 1.7 (0.5-2.0) mmol/L Calcium 9.6 (8.4-10.2) mg/dL Magnesium 2.1 (1.6-2.6) mg/dL Total Bilirubin 0.6 (0.0-1.0) mg/dL Direct Bilirubin 0.1 (0.0-0.5) mg/dL AST 21 (5-37) U/L ALT 20 (0-40) U/L Alkaline Phosphatase 60 (39-117) U/L Troponin I High Sens < 2.7 (<3.5-35.0) ng/L Total Protein 7.6 (6.5-8.0) g/dL Albumin 4.2 (3.5-5.0) g/dL Lipase 24 (8-78) U/L Urine Color Yellow Urine Appearance Clear Urine pH 7.5 (5.0-9.0) Ur Specific [place] <= 1.005 (1.005-1.025) Urine Protein Negative (Neg-Trace) mg/dL Urine Glucose (UA) Negative (Negative) mg/dL Urine Ketones Negative (Negative) mg/dL Urine Blood Negative (Negative) Urine Nitrite Negative (Negative) Ur Leukocyte Esterase Negative (Negative) Urine RBC 0-2 (0-2) /HPF Urine WBC 0-5 (0-5) /HPF Ur Squamous Epith Cells 0-2 (0-2) /HPF Urine Bacteria None Seen (None Seen) Hyaline Casts 0-2 (0-2) /LPF Influenza Type A (PCR) (Negative) Influenza Type B (PCR) (Negative) RSV RNA Qual (PCR) (Negative) SARS-CoV-2 RNA (RT-PCR) (Negative) S. pyogenes GrpA RICHARD (Negative) 02/04/25 02/04/25 Range/Units 11:56 12:37 WBC (4.8-10.8) X10*3/uL RBC (4.60-5.80) X10*6/uL Hgb (14.0-18.0) g/dl Hct (42.0-52.0) % MCV (80.0-98.0) fL MCH (27.0-33.0) pg MCHC (31.0-36.0) g/dl RDW (11.0-16.0) % Plt Count (160-400) X10*3/uL MPV (9.4-12.4) fL Immature Gran % (Auto) (0.0-0.4) % Neut % (Auto) (45-73) % Lymph % (Auto) (20-40) % [place] % (Auto) (2-11) % Eos % (Auto) (0-4) % Baso % (Auto) (0-2) % Lymph # (Auto) (1.2-4.9) X10*3/uL [place] # (Auto) (0.1-1.2) X10*3/uL Eos # (Auto) (0.0-0.4) X10*3/uL Baso # (Auto) (0.0-0.2) X10*3/uL Abs Immat Gran (auto) (0.00-0.03) X10*3/uL Absolute Neuts (auto) (2.0-8.3) x10*3/uL Absolute Nucleated RBC (0.0-0.012) X10*3/uL Nucleated RBC % (auto) (0.0-0.2) /100WBC Hold Purple Top PT (10.9-12.4) SEC INR (0.9-1.1) Sodium (135-145) mmol/L Potassium (3.3-5.1) mmol/L Chloride (96-108) mmol/L Carbon Dioxide (22-29) mmol/L Anion Gap (12-20) BUN (9-16) mg/dL Creatinine (0.5-1.4) mg/dL Estim Creat Clear Calc Estimated GFR Random Glucose (60-115) mg/dL Lactic Acid (0.5-2.0) mmol/L Calcium (8.4-10.2) mg/dL Magnesium (1.6-2.6) mg/dL Total Bilirubin (0.0-1.0) mg/dL Direct Bilirubin (0.0-0.5) mg/dL AST (5-37) U/L ALT (0-40) U/L Alkaline Phosphatase (39-117) U/L Troponin I High Sens (<3.5-35.0) ng/L Total Protein (6.5-8.0) g/dL Albumin (3.5-5.0) g/dL Lipase (8-78) U/L Urine Color Yellow Urine Appearance Clear Urine pH 8.0 (5.0-9.0) Ur Specific [place] 1.010 (1.005-1.025) Urine Protein Negative (Neg-Trace) mg/dL Urine Glucose (UA) Negative (Negative) mg/dL Urine Ketones Negative (Negative) mg/dL Urine Blood Negative (Negative) Urine Nitrite Negative (Negative) Ur Leukocyte Esterase Negative (Negative) Urine RBC (0-2) /HPF Urine WBC (0-5) /HPF Ur Squamous Epith Cells (0-2) /HPF Urine Bacteria (None Seen) Hyaline Casts (0-2) /LPF Influenza Type A (PCR) NEGATIVE (Negative) Influenza Type B (PCR) NEGATIVE (Negative) RSV RNA Qual (PCR) NEGATIVE (Negative) SARS-CoV-2 RNA (RT-PCR) NEGATIVE (Negative) S. pyogenes GrpA RICHARD Negative (Negative) Independent Interpretation I performed an independent interpretation of an: EKG and CT Scan Interpretation: Rate: 69 Rhythm: NSR with PVCs [place]: left Normal P waves. Normal FORTUNATO. Normal QRS complex. ST T wave : no MAGDY, normal qTC: 477 prior studies: no acute ischemia The study has been interpreted contemporaneously by me. . Radiology Impression Discussion of test interpretation with radiology: I have reviewed the radiologist's reading. Discharge Plan Discharge Clinical Impression: Odynophagia Patient Disposition: Still a Patient Prescriptions: No Action cholecalciferol (vitamin D3) 50 mcg (2,000 unit) tablet 50 mcg PO DAILY Qty: 90 3RF finasteride 5 mg tablet 5 mg PO DAILY 90 Days Qty: 90 1RF haloperidol 2 mg tablet 4 mg PO BEDTIME divalproex [Depakote ER] 500 mg tablet extended release 24 hr 500 mg PO BID benztropine 0.5 mg tablet 0.5 mg PO BID aspirin 81 mg tablet,delayed release (DR/EC) 81 mg PO DAILY atorvastatin 10 mg tablet 10 mg PO DAILY Qty: 90 3RF finasteride 5 mg tablet 5 mg PO DAILY lisinopril-hydrochlorothiazide 20-12.5 mg tablet 1 tab PO DAILY Qty: 90 3RF tamsulosin [Flomax] 0.4 mg capsule 0.4 mg PO BEDTIME Qty: 90 3RF Print Language: Citizen Of [place]
[2025-01-03] MEDS: iohexoL 350 MG/ML 100 ML INFUS..BTL IV (12:29)
[2025-01-03 12:44] LABS: Influenza A PCR NEGATIVE (Negative); Influenza B PCR NEGATIVE (Negative); Resp Syncy Virus RNA Qual PCR NEGATIVE (Negative); SARS COV2 PCR INHOUSE NEGATIVE (Negative)
[2025-01-03 12:46] LABS: Appearance Urine Clear; Color Urine Yellow; Glucose Urine UA Negative (Negative); Leukocyte Esterase Urine Negative (Negative); Nitrite Urine Negative (Negative); Urine Blood Negative (Negative); Urine Ketones Negative (Negative); Urine Protein Negative (Neg-Trace)
[2025-01-03] MEDS: Piperacillin Sodium/Tazobactam 4.5 GM in 0.9 % Sodium Chloride 100 ML IV (17:29)
[2025-01-03] MEDS: dexAMETHasone sod phosphate 4 MG/ML VIAL IVPUSH (17:29)
--- NOTE | 2025-01-03 18:29 | PC.NURSE ---
Pt is to be transported to [facility]. Pt has been accepted and assigned location: [address] [place] [address]. Call placed to [facility] ([phone]) and spoke with RN Kiesha RN to order fulfillment specialist report completed. Kiesha given the opportunity for questions and all questions answered to satisfaction. Awaiting ambulance arrival for transport.
--- NOTE | 2025-01-03 18:45 | PC.NURSE ---
[facility] arrives for transport. Report given to EMS and care of Pt relinquished to [facility].
== END 2025-01-03 18:51 | disposition still patient (30) ==
PROVIDERS: Emergency Medicine; Emergency Provider Emergency Medicine; PCP Internal Medicine
DX: R13.10 Dysphagia, unspecified (principal); R07.89 Other chest pain; R94.31 Abnormal electrocardiogram [ECG] [EKG]; I10 Essential (primary) hypertension; Z03.818 Encounter for observation for suspected exposure to other biological agents ruled out; Z79.899 Other long term (current) drug therapy
CPT/HCPCS: 0241U; 36415; 70491; 71260; 80048; 80076; 81001; 81003; 83605; 83690; 83735; 84484; 85025; 85610; 87040; 87651; 93005; 96365; 96366; 96375; 96376; 99284; 99285; J1100; J2543; Q9967

== ENCOUNTER → 2025-01-03 11:04 | Outpatient (BNV) | payer MEDICARE, MEDICAID, SELFPAY | PROVIDERS: Emergency Provider Emergency Medicine; PCP Internal Medicine; Visit Provider Radiology Diagnostic Radiology | DX: R13.10 Dysphagia, unspecified (principal) | CPT/HCPCS: 70491; 71260 ==

== ENCOUNTER 2025-01-20 10:54 | Outpatient (REF) | payer MEDICARE, MEDICAID, SELFPAY ==
--- OUTSIDE RECORDS SUMMARY | 2025-01-20 12:02 | XMS_ITS | Encounter Summary ---
Author Organization [employer] Address [address] [facility] [address] [place] [address] Care Team Providers Care Switchboard Operator Receptionist Name Role Phone Unavailable Primary Care Provider Unavailabl e Encounter Details Date Type Department Care Team (Latest Contact Info) Description 06/09/2022 Abstract [facility] CONVERSIONS Dental, Provider, DDS Social History Tobacco [...] Description 03/24/2025 1:00 PM EDT Office Visit [facility] ADULT DENTAL [address] [place] [address] Niko Melendrezaris [address] [place] [address] documented as of this encounter Visit Diagnoses Not on filedocumented in this encounter
--- OUTSIDE RECORDS SUMMARY | 2025-01-20 12:02 | XMS_ITS | Clinical Summary ---
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 Name Role Phone Unavailable Primary Care Provider [...] Type Department Care Team Description 11/21/2024 Telephone [facility] ADULT DENTAL [address] [place] [address] Ara Melendrez from Last 3 Months Social [...] Description 03/24/2025 1:00 PM EDT Office Visit [facility] ADULT DENTAL [address] [place] [address] Ara Melendrez [address] [place] [address] Health Maintenance Due Date Last Done Comments [...] 3:00 PM EDT Dental plaque Dental calculus INTRAORAL - COMPLETE SERIES OF RADIOGRAPHIC IMAGES Routine 05/23/2024 3:00 PM EDT Dental plaque Dental calculus Crowded teeth Missing teeth, acquired from Last 3 Months or Most Recently Relevant to Health [place] [address] [id number] [facility] MEDICAID STAND ADULT
--- OUTSIDE RECORDS SUMMARY | 2025-01-20 12:02 | XMS_ITS ---
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 Name Role Phone Lor Jeffrey MD Primary Care Provider Javier Donato Jr Unavailable ALLERGIES No Known Allergies REASON FOR VISIT Patient presents today for a screening colon MEDICATIONS Medication SIG (Take, Route, Frequency, Duration) Notes Start Date End Date Status Haloperidol 2 MG TAKE 2 TABLETS BY MO UTH EVERY DAY AT BEDTIME Oral for 90 Active Finasteride 5 MG TAKE 1 TABLET BY GRANT TH DAILY FOR 90 DAYS Oral for 90 Active Benztropine Mesylate 0.5 MG Oral for 90 Active Divalproex Sodium ER 500 MG Oral for 90 Active Vitamin D 2000 UNIT 1 capsule Orally Onc e a day Active Aspir-81 81 MG 1 tablet Orally Once a day Active Atorvastatin Calcium 10 MG 1 tablet Oral ly Once a day Active Lisinopril-hydroCHLOROthiaz jef 20-12.5 MG 1 tablet Orally Once a day Active Haldol 5 MG/ML 0.3 ml as needed Injection Twice a day Active Depakote 500 MG as directed Orally e very day Active Tamsulosin HCl 0.4 MG 1 capsule Orally O nce a day for 30 day(s) Active SOCIAL HISTORY Sex Assigned At : Social History Observation Description Sex Assigned At Unknown Alcohol Screen Question Answer Notes Did you have a drink containing alcohol in the p ast year? No Points 0 Interpretation Negative PROBLEMS Problem Type ICD Code Onset Dates Problem Status W/U Status Risk SNOMED Code Notes Problem Long-term use of aspirin therapy (Z79.82) Active confirmed 869764277 VITAL SIGNS BMI 31.49 kg/m2 06/30/2024 Blood pressure systolic 000 mm Hg 06/30/20 24 Blood pressure diastolic 00 mm Hg 024 Height 69.5 in 06/30/2024 Temperature 97.5 degrees Fahrenheit 06/30/20 24 Weight 216 lb 6 oz lbs 06/30/2024 Encounters Encounter Location Date Provider Diagnosis [facility] [address] [place] [address] 06/30/2024 Javier Lee Jr Colon cancer screening Z12.11 and Long-term use of aspirin therapy Z79.82 ASSESSMENTS Encounter Date Diagnosis Assessment Notes Treatment Notes Treatment Clinical Notes 06/30/2024 Colon cancer screening (ICD-10 - Z12.11) 06/30/2024 Long-term use of aspirin therapy (ICD-10 - Z79.82) Aspirin and heart disease material was printed PLAN OF TREATMENT Treatment Notes Assessment Notes Long-term use of aspirin therapy Aspirin and heart disease material was printed Future Test Test Name Order Date COLONOSCOPY 06/30/2024 Next Appt Details Follow Up: 1 Year, Reason: Progress Notes * Examination Category Sub-Category Detail Notes General Examination GENERAL APPEARANCE: in no ac marcelo distress HEAD: normocephalic EYES: sclera non-icteric NECK/THYROID: no lymphadenopathy HEART: S1, S2 normal, no mu rmurs CHEST: normal shape and exp ansion LUNGS: clear to auscultatio n bilaterally ABDOMEN: soft, nontender, non distended, bowel sounds present, no organomegaly SKIN: anicteric EXTREMITIES: no clubbing, cyanosi s, or edema PSYCH: cognitive function i ntact ORAL CAVITY: mucosa moist
--- OUTSIDE RECORDS SUMMARY | 2025-01-20 12:02 | XMS_ITS ---
Author Organization [facility] Address [address] [place] [address] Care Team Providers Care Recovery Advocate Name Role Phone Lor Jeffrey MD Primary Care Provider Javier Donato Jr [phone] REASON FOR VISIT pathology Encounters Encounter Location Date Provider Diagnosis [facility] [address] [place] [address] 08/10/2024 Javier Lee Jr PLAN OF TREATMENT No Information
--- OUTSIDE RECORDS SUMMARY | 2025-01-20 12:02 | XMS_ITS | Patient Health Record ---
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 Name Role Phone Lor Jeffrey MD Primary Care Provider Javier Donato Jr Unavailable [phone] ALLERGIES No Known Allergies RESULTS Component Value Reference Range Notes Pathology Reviewed date:08/10/2024 08:38:39 AM Interpretation: Performing Lab:[facility] [place], [address] [place] [id number] Notes/Report: REASON FOR REFERRAL No Information MEDICATIONS Medication SIG (Take, Route, Frequency, Duration) Notes Start Date End Date Status Vitamin D 2000 UNIT 1 capsule Orally Onc e a day Active Aspir-81 81 MG 1 tablet Orally Once a day Active Atorvastatin Calcium 10 MG 1 tablet Oral ly Once a day Active Lisinopril-hydroCHLOROthiaz jef 20-12.5 MG 1 tablet Orally Once a day Active Haloperidol 2 MG TAKE 2 TABLETS BY MO UT EVERY DAY AT BEDTIME Oral for 90 Active Finasteride 5 MG TAKE 1 TABLET BY GRANT TH DAILY FOR 90 DAYS Oral for 90 Active Depakote 500 MG as directed Orally e very day Active Tamsulosin HCl 0.4 MG 1 capsule Orally O nce a day for 30 day(s) Active Benztropine Mesylate 0.5 MG Oral for 90 Active Divalproex Sodium ER 500 MG Oral for 90 Active Haldol 5 MG/ML 0.3 ml as needed Injection Twice a day Active IMMUNIZATIONS Vaccine Route Administration Date Status Comme nts Influenza Unknown 09/22/2018 Administered Influenza Unknown 10/20/2023 Administered SOCIAL HISTORY Sex Assigned At : Social History Observation Description Sex Assigned At Unknown Alcohol Screen Question Answer Notes Did you have a drink containing alcohol in the p ast year? No Points 0 Interpretation Negative PROBLEMS Problem Type ICD Code Onset Dates Problem Status W/U Status Risk SNOMED Code Notes Problem Colon cancer screening (Z12.11) Active confirmed 458131488 Problem Long-term use of aspirin therapy (Z79.82) Active confirmed 615114192 VITAL SIGNS Temperature 97.5 degrees Fahrenheit 06/30/2024 Blood pressure diastolic 00 mm Hg 06/30/2024 Height 69.5 in 06/30/2024 Blood pressure systolic 000 mm Hg 06/30/2024 Weight 216 lb 6 oz lbs 06/30/2024 BMI 31.49 kg/m2 06/30/2024 Encounters Encounter Location Date Provider Diagnosis [facility] Outpatient [address] [place], [place] [phone] 08/02/2024 Javier Lee Jr Colon cancer screening Z12.11 and Colon polyps K63.5 [facility] [address] [place] [address] 06/30/2024 Javier Lee Jr Colon cancer screening Z12.11 and Long-term use of aspirin therapy Z79.82 [facility] [address] [place] [phone] 08/10/2024 Javier Lee Jr ASSESSMENTS Encounter Date Diagnosis Assessment Notes Treatment Notes Treatment Clinical Notes 08/02/2024 Colon cancer screening (ICD-10 - Z12.11) 08/02/2024 Colon polyps (ICD-10 - K63.5) 06/30/2024 Colon cancer screening (ICD-10 - Z12.11) 06/30/2024 Long-term use of aspirin therapy (ICD-10 - Z79.82) Aspirin and heart disease material was printed PLAN OF TREATMENT Future Test Test Name Order Date COLONOSCOPY 06/11/2012 COLONOSCOPY 06/30/2013 COLONOSCOPY 01/05/2019 COLONOSCOPY 06/30/2024 Insurance Providers Payer Name Payer Address Payer Phone Subscriber Number Group Number Insured Name Patient Relationship to Insured Coverage Start Date Coverage End Date MEDICARE OF [place] [address] [place] [id number] BART RUVALCABA Self - patient is the insured MEDICAID OF [employer] [address] [place] [phone] [id number] BART RUVALCABA Self - patient is the insured MEDICAL (GENERAL) HISTORY Medical History History ICD Code colonoscopy 2019 tubular adenomas x2 fiv e year recall hypertension chest pain with neg. cardiac workup bipplar disorder elevated cholesterol cataract surgery in both eyes 02/2024- Surgical History Surgery Date(Month/Year) hernia repair both eyes cataract surgery in february and march 2024
--- OUTSIDE RECORDS SUMMARY | 2025-01-20 12:02 | XMS_ITS ---
Author Organization [facility] Address [address] [place] [address] Care Team Providers Care Supervisor Reclamation Name Role Phone Lor Jeffrey MD Primary Care Provider Javier Donato Jr REASON FOR VISIT screening Encounters Encounter Location Date Provider Diagnosis [facility] Outpatient [address] [place] [phone] 08/02/2024 Javier Lee Jr Colon cancer screening Z12.11 and Colon polyps K63.5 ASSESSMENTS Encounter Date Diagnosis Assessment Notes Treatment Notes Treatment Clinical Notes 08/02/2024 Colon cancer screening (ICD-10 - Z12.11) 08/02/2024 Colon polyps (ICD-10 - K63.5) PLAN OF TREATMENT No Information
--- OUTSIDE RECORDS SUMMARY | 2025-01-20 12:02 | XMS_ITS | Encounter Summary ---
Author Organization [facility] Address [address] [place] [address] Care Team Providers Care Crts Name Role Phone Lor Jeffrey MD Primary Care Provider [phone] Reason for Visit * Auth/Cert (Routine) Specialty Diagnoses / Procedures Referred By Contac t Referred To Contact Diagnoses Retropharyngeal abscess Retropharyngeal abscess Procedures MD HOSPITAL IP/OBS CARE INITIAL MODERATE LEVEL PER DAY Pito Yousif MD [address] [place] [phone] Phone: tel: fax: [facility] [address] [place] [phone] Phone: tel: Referral ID Status Reason Start Date Expiration Date Visits Re quested Visits Authorized [id number] 1 1 Encounter Details Date Type Department Care Team (Latest Contact Info) Description 01/03/2025 7:18 PM EST - 01/05/2025 2:47 PM EST Hospital Encounter [facility] [address] [place] [phone] Heike Dalton MD [address] [place] [phone] Pito Yousif MD [address] [place] [phone] Mannie Dawson MD [address] [place] [phone] Discharge Disposition: Home or Self Care Social History Tobacco Use Types Packs/Day Years Used Date Smoking Tobacco: Never Alcohol Use Standard Drinks/Week Comments Not Asked 0 (1 standard drink = 0.6 oz pur e alcohol) Interpersonal Safety Answer Date Record ed Physical Abuse 01/04/2025 Verbal Abuse 01/04/2025 Sex and Gender Information Value Date Recorded Sex Assigned at Not on file Legal Sex Male 10:46 AM EST Gender Identity Not on file Sexual Orientation Not on file documented as of this encounter Last Filed Vital Signs Vital Sign Reading Time Taken Comments Blood Pressure 129/77 01/05/2025 11:21 AM EST Pulse 64 01/05/2025 11:21 AM EST Temperature 37.3 ??C (99.2 ??F) 01/05/2025 11:[address] Respiratory Rate 16 01/05/2025 11:21 AM EST Oxygen Saturation 95% 01/05/2025 11:21 AM EST Inhaled Oxygen Concentration - - Weight 99.8 kg (220 lb) 01/03/2025 9:00 PM EST Height 180 cm (5' 10.87 ) 01/03/2025 9:00 PM EST Body Mass Index 30.8 01/03/2025 9:00 PM EST documented in this encounter Discharge Summaries * Mannie Dawson MD - 01/05/2025 12:42 PM EST Images from the original note were not included. BETSY LAYNE DISCHARGE SUMMARY Patient Information Gato No : 1955 [69 y.o.] Admitting Provider Pito Yousif MD Discharge Provider Mannie Dawson MD, Mannie Dawson MD Primary Care Physician Lor Jeffrey MD Admission Date 01/03/2025 Discharge Date 01/05/2025 Primary/Secondary Diagnosis Retropharyngeal abscess with left thyroid/retroperitoneal area hematoma Bipolar disorder BPH HTN Consults and Procedures: None was deemed necessary by ENT. Hospital Course Summary 69-year-old male with PMH of HTN, dyslipidemia, BPH, bipolar disorder, depression among others who presented as a direct admission from [facility] for further workup and treatment for retropharyngeal abscess. Appears that patient was having difficulty swallowing for 4 days and then developed pain. When he woke up in the morning he noticed large bruise in his anterior chest area. He denied any trauma to the neck. Denied high fevers or chills. Patient apparently went to [facility] and CT of the soft tissue neck with contrast showed concerning parapharyngeal abscess extending from C2-C7 causing upper airway obstruction in the hypopharynx. CT chest with contrast showed edema pattern versus hematoma involving the right thyroid and retropharyngeal area. Lungs were clear. Patient was given dexamethasone, Zosyn and ED staff discussed with on-call ENT who recommended medical management and pt was transferred to [facility]. -Retropharyngeal abscess with left thyroid/retropharyngeal area hematoma. Patient reassessed this morning and he is asymptomatic. Reports feeling back to normal. Tolerating liquid diet which will be advanced to soft and if he tolerates he will be discharged home. He deniesany trouble breathing or sore throat. He has leukocytosis today but likely secondary to dexamethasone that was administered. He is afebrile and clinically improved. He wants to go home and will be discharged in stable condition. As outlined from my progress note from yesterday he will have follow-up with ENT as an outpatient within [address] Almeida will make f/u appointment for him. I also provided office number to the patient. No need to continue dexamethasone on discharge. Continue with Augmentin for 13 more days to comple total of 2 weeks of abx. (Pt responded to Unasynwell in the hospital) - Bipolar disorder On Haldol, Cogentin, Depakote. Mood stable and patient very pleasant. Sterdoids will be discontinued to affect BD and also not routinely recommended for this condition. -BPH. On finasteride and Flomax >30 min spent on DC Follow-Up Instructions and Recommendations PCP in 1 week Follow Ups: No follow-up provider specified. Test Results Pending At Discharge: Discharge Medications Medication List TAKE these medications amoxicillin-clavulanate 875-125 mg per tablet Commonly known as: AUGMENTIN Take 1 tablet by mouth 2 (two) times a day for 13 days. aspirin 81 mg EC tablet Take 81 mg by mouth daily. atorvastatin 10 mg tablet Commonly known as: LIPITOR Take 1 tablet (10 mg total) by mouth 1 (one) time each day. benztropine 0.5 mg tablet Commonly known as: COGENTIN Take 1 tablet (0.5 mg total) by mouth 2 (two) times a day. cholecalciferol 25 mcg (1,000 unit) capsule Commonly known as: VITAMIN D-3 Take by mouth. clotrimazole 1 % cream Commonly known as: LOTRIMIN Apply to skin and toenails daily for 12 weeks divalpro[address] tablet Commonly known as: DEPAKOTE Take 500 mg by mouth 2 times daily. finasteride 5 mg tablet Commonly known as: PROSCAR Take 1 tablet (5 mg total) by mouth 1 (one) time each day. haloperidoL 2 mg tablet Commonly known as: HALDOL Take 2 tablets (4 mg total) by mouth at bedtime. lisinopril-hydroCHLOROthiazide 20-12.5 mg per tablet Commonly known as: PRINZIDE,ZESTORETIC Take 1 tablet by mouth 1 (one) time each day. tamsulosin 0.4 mg 24 hr capsule Commonly known as: FLOMAX Take 2 capsules (0.8 mg total) by mouth at bedtime. Physical Exam at time of Discharge General: Patient is awake and alert. Not in acute distress Psychiatric: Mood stable. Remains very pleasant. No anxiety or agitation Eyes: No icterus Pulmonary: No wheezes or crackles. CTA bilaterally. No tachypnea ENT. No visible oropharyngeal exudate or redness. Left-sided neck swelling minimal and improved. Skin: Ecchymosis in the left upper chest area still present but resolving and fading away GI: Bowel sounds present ND NT Vitals Vitals: 01/05/25 1121 BP: 129/77 Pulse: 64 Resp: 16 Temp: 37.3 ??C (99.2 ??F) SpO2: 95% HEMATOLOGY Lab Results Component Value Date WBC 18.0 (H) 01/05/2025 HGB 12.8 (L) 01/05/2025 HCT 37.8 (L) 01/05/2025 MCV 85.7 01/05/2025 PLT 274 01/05/2025 CHEMISTRY Lab Results Component Value Date GLUCOSE 124 (H) 01/05/2025 NA 140 01/05/2025 K 3.8 01/05/2025 CO2 27 01/05/2025 CL 106 01/05/2025 BUN 25 01/05/2025 CREATININE 1.25 01/05/2025 EGFR 62 01/05/2025 CALCIUM 9.9 01/05/2025 ANIONGAP 7 01/05/2025 XR Chest 1 View Result Date: 01/04/2025 History: Dyspnea on exertion. Comparison: No previous imaging at this institution. Findings: Portable AP upright chest at 9:30 PM. The cardiac silhouette is normal in size. Hilar contours and pulmonary vascularity appear normal. The lungs are clear. No sizable pleural fluid collection is seen. Impression: No active pulmonary process identified. Telerad PA ([id number]) -------- FINAL REPORT -------- Dictated By: Kalie Walker Dictated Date: 01/04/2025 08:40 ET Assigned Physician: Kalie Walker Reviewed and Electronically Signed By: Kalie Walker Signed Date: 01/04/2025 08:41 ET Workstation ID: [id number] Transcribed By: Self Edit Transcribed Date: 01/04/2025 08:40 ET documented in this encounter Discharge Instructions * Discharge Instructions* Mannie Dawson MD - 01/05/2025 12:54 PM EST You were agnostic with retropharyngeal abscess and associated bleeding. Your condition improved with antibiotic treatment. Seek immediate medical attention if you have shortness of breath, severe throat/neck pain, enlarging neck mass, high fevers or bleeding. Prescription for antibiotic was sent to [facility] pharmacy at [facility] in [place]. You should get a call from Dr. Almeida's (ENT) office to make appointment within 2 weeks. If you don not hear from them early next week, please call the office to ask for appointment. Phonenumber is: [phone] Hold aspirin for 1 week. documented in this encounter Medications at Time of Discharge finasteride (PROSCAR) 5 mg tablet Take 1 tablet (5 mg total) by mouth 1 (one) time each day. 03/07/2024 aspirin 81 mg EC tablet Take 81 mg by mouth daily. atorvastatin (LIPITOR) 10 mg tablet Take 1 tablet (10 mg total) by mouth 1 (one) time each day. benztropine (COGENTIN) 0.5 mg tablet Take 1 tablet (0.5 mg total) by mouth 2 (two) times a day. cholecalciferol (VITAMIN D-3) 25 mcg (1,000 unit) capsule Take by mouth. clotrimazole (LOTRIMIN) 1 % cream Apply to skin and toenails daily for 12 weeks 08/29/2024 divalproex (DEPAKOTE) [address] tablet Take 500 mg by mouth 2 times daily. haloperidoL (HALDOL) 2 mg tablet Take 2 tablets (4 mg total) by mouth at bedtime. lisinopril-hydro CHLOROthiazide (PRINZIDE,ZESTOR ETIC) 20-12.5 mg per tablet Take 1 tablet by mouth 1 (one) time each day. tamsulosin (FLOMAX) 0.4 mg 24 hr capsule Take 2 capsules (0.8 mg total) by mouth at bedtime. amoxicillin-clav ulanate (AUGMENTIN) 875-125 mg per tablet Take 1 tablet by mouth 2 (two) times a day for 13 days. 26 each 01/05/2025 01/18/2025 documented as of this encounter Ordered Prescriptions Prescription Sig Dispense Quantity Refills Last Filled Start Date End Date amoxicillin-clavul anate (AUGMENTIN) 875-125 mg per tablet Take 1 tablet by mouth 2 (two) times a day for 13 days. 26 each 01/05/2025 01/18/2025 documented in this encounter Discharge Disposition Disposition Code Departure Means Destination Comment s Home or Self Care Car Home documented in this encounter Progress Notes * Britt Mejia RN - 01/05/2025 3:09 PM EST 01/05/25 1509 Initial Transition Plan Initial Transition Plan Home Transportation Transportation at discharge Family What day is the transport expected? 01/05/25 Per patient cleared for discharge to home family to provide transport * Mannie Dawson MD - 01/04/2025 2:58 PM EST Images from the original note were not included. ALVINO PROGRESS NOTE Date: 01/04/2025 Author: Mannie Dawson MD Patient ID: Gato No is a 69 y.o. male : 1955 MR#: [id number] SUBJECTIVE CC: f/u retropharyngeal abscess Pt seen first time today in the morning. Pt reports feeling better and no more pain in the throat. Denies difficulty swallowing saliva. He is NPO. ENT consult pending. ROS: No chest pain Denies sob No fevers No diarrhea OBJECTIVE Vitals: Vitals: 01/04/25 1135 BP: 137/68 Pulse: 74 Resp: 18 Temp: 37.5 ??C (99.5 ??F) SpO2: 94% Physical Exam: General: Awake and alert. NAD Psych: mood stable. No anxiety. Very pleasant EYEs: no icterus. ENT: No visible oropharyngeal redness/exudate that I could see. Left neck sl swollen. CVS: S1 S2 Ext: no pedal edema. PUL: CTA BL. No tachypnea. GI: BS present. NT. Skin: no cyanosis. Echymosis in anterior upper chest area. LAB RESULTS HEMATOLOGY Lab Results Component Value Date WBC 10.7 01/04/2025 HGB 13.2 (L) 01/04/2025 HCT 38.8 (L) 01/04/2025 MCV 84.9 01/04/2025 PLT 266 01/04/2025 CHEMISTRY Lab Results Component Value Date GLUCOSE 155 (H) 01/04/2025 NA 141 01/04/2025 K 3.8 01/04/2025 CO2 27 01/04/2025 CL 107 01/04/2025 BUN 21 01/04/2025 CREATININE 1.27 01/04/2025 EGFR 61 01/04/2025 CALCIUM 9.7 01/04/2025 ANIONGAP 7 01/04/2025 RADIOLOGY XR Chest 1 View Final Result Impression: No active pulmonary process identified. Telerad JOHANN ([id number]) -------- FINAL REPORT -------- Dictated By: Kalie Walker Dictated Date: 01/04/2025 08:40 ET Assigned Physician: Kalie Walker Reviewed and Electronically Signed By: Kalie Walker Signed Date: 01/04/2025 08:41 ET Workstation ID: [id number] Transcribed By: Self Edit Transcribed Date: 01/04/2025 08:40 ET Imaging: XR Chest 1 View Narrative: History: Dyspnea on exertion. Comparison: No previous imaging at this institution. Findings: Portable AP upright chest at 9:30 PM. The cardiac silhouette is normal in size. Hilar contours and pulmonary vascularity appear normal. The lungs are clear. No sizable pleural fluid collection is seen. Impression: Impression: No active pulmonary process identified. Telerad JOHANN ([id number]) -------- FINAL REPORT -------- Dictated By: Kalie Walker Dictated Date: 01/04/2025 08:40 ET Assigned Physician: Kalie Walker Reviewed and Electronically Signed By: Kalie Walker Signed Date: 01/04/2025 08:41 ET Workstation ID: [id number] Transcribed By: Self Edit Transcribed Date: 01/04/2025 08:40 ET Current Medications: ampicillin-sulbactam, 3 g, intravenous, q6h benztropine, 0.5 mg, oral, BID dexAMETHasone, 4 mg, intravenous, q6h JAZ divalproex, 500 mg, oral, q12h JAZ finasteride, 5 mg, oral, Daily haloperidoL, 2 mg, oral, BID sodium chloride, 10 mL, intravenous, BID tamsulosin, 0.8 mg, oral, Nightly lactated Ringer's, 100 mL/hr, Last Rate: 100 mL/hr (01/04/25 1052) PRN medications: acetaminophen, hydrALAZINE, ondansetron (ZOFRAN-ODT) disintegrating tablet OR ondansetron, prochlorperazine OR prochlorperazine OR prochlorperazine, Insert peripheral IV AND Maintain IV access AND Saline lock IV AND sodium chloride AND sodium chloride Fluids: lactated Ringer's, 100 mL/hr, Last Rate: 100 mL/hr (01/04/25 1052) ASSESSMENT & PLAN 69-year-old male with PMH of HTN, dyslipidemia, BPH, bipolar disorder, depression among others who presented as a direct admission from [facility] for further workup and treatment for retropharyngeal abscess. Appears that patient was having difficulty swallowing for 4 days and then developed pain. When he woke up in the morning he noticed large bruise in his anterior chest area. He denied any trauma to the neck. Denied high fevers or chills. Patient apparently went to [facility] and CT of the soft tissue neck with contrast showed concerning parapharyngeal abscess extending from C2-C7 causing upper airway obstruction in the hypopharynx. CT chest with contrast showed edema pattern versus hematoma involving the right thyroid and retropharyngeal area. Lungs were clear. Patient was given dexamethasone, Zosyn and ED staff discussed with on-call ENT who recommended medical management and pt was transferred to [facility]. -Retropharyngeal abscess with left thyroid/retropharyngeal area hematoma. On IV Dexamethasone and Unasyn. Pt reports improvement. Admitting team entered consult for ENT/Dr. Almeida and made pt NPO. Not sure what was the ENT plan for today. I called office and left information to contact me back. I was told that Dr. Almeida is search engine optimization manager but she was not in the office (was at [facility]). I also dont see any imaging (Neck/Chest) in PACS system. Plan: Liquid diet trial. Awaiting ENT evaluation and recommendations. Continue abx and steroid. ADDENDUM: 3:[address] Buck called back and we reviewed the case. She noted that her recommendation was to treat with antibiotics and no surgery/drainage was indicated nor she was planning to see pt in the hospital. She asked how pt was doing and I informed her that pt had good response to treatment and was doing we ll. I asked what was the reason for transfer from [facility] to [facility] if she was not recommending drainage/evaluation and she told me that apparently [facility] staff was not comfortable to keep him there in case he was getting worse. Dr. Mcintosh will make sure pt has f/u in the office in couple week and this is appreciated. I wished I had this information conveyed during the transfer/acceptance process and avoid unnecessary NPO and also save provider time. - Bipolar disorder On Haldol, Cogentin, Depakote. Mood stable and patient very pleasant -BPH. On finasteride and Flomax -HTN. -Dyslipidemia. Code status: Full code DVT pp: SCD boots. No chemical prophylaxis d/t hematoma in the neck. Disposition: F/u clinical course and ENT evaluation. 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 Yes VIOLA: 01/04 Plan: home self care Barriers: IC abx, febrile 99, Therapy Eval: pending need Referral status: na Auth status: na Last BM: 01/02 Pharmacy: [facility] HCP: Yes states brother David has it at home-no David in contacts Support Persons and Availability: Family PCP: Lor Jeffrey MD documented in this encounter H&P Notes * JOHANN Marcum - 01/03/2025 9:44 PM EST Images from the original note were not included. ALVINO HISTORY AND PHYSICAL Please contact author [JOHANN Marcum] via Jumpzter/Trendyta. Patient: Gato No Admission Date/Time: 01/03/2025 7:18 PM : 1955 [69 y.o.] Patient's PCP: Lor Jeffrey MD Attending Provider: Pito Yousif MD CHIEF COMPLAINT Hurts to swallow HISTORY OF PRESENT ILLNESS Gato No is a 69 y.o. male past medical history significant for hypertension, hyperlipidemia, BPH, bipolar disorder, depression and further history below who was direct admitted from [facility] for further workup and treatment of retropharyngeal abscess. Patient reports having diffi culty swallowing for 4 days, states last night he was treated off and when he woke up he had a large bruises on his anterior chest. Denies trauma or being on blood thinner. Admits voice changes, denies short of breath, cough, recent URI symptoms. He denies chest pain, palpitations. Denies fever, chills. Denies nausea, vomiting, abdominal pain, changes in bowel movement or urination. No sick contacts or recent travel. Arrival to this hospital blood pressure 156/77, heart rate 80, respirate 18, sat 99% on room air, afebrile. Transfer note, labs reviewed no leukocytosis 7.9, normal H&H 14/40.5, platelets 246, electrolytes WNL, normal BUNs/creatinine 14/1.20 random blood Kos 106, lactic acid 1.7, magnesium 2.1, LFTs WNL, influenza and RSV negative. INR 1.0, PT 11.8. UA negative for bacteria. EKG showed normal sinus rhythm with PVCs at [address] soft tissue neck with contrast showed concerning parapharyngeal abscess extending from C2-C7 causing upper airway obstruction in the hypopharynx. CT chest with contrast showed edema pattern versus hematoma involving the right thyroid and retrolaryngeal. Lungs are clear. At [facility] ED department, patient received dexamethasone 4 mg x 2, Zosyn 4.5 mg x 2,per ED note he discussed the case with on-call ENT Dr. Rizo who recommended medical management and patient transferred to [facility]. Review of Systems All points in 12 point review of systems are negative or as per above MEDICAL HISTORY Past Medical History Past Medical History: Diagnosis Date Bipolar 2 disorder (CMS/LTAC, [facility]IN [facility]) Borderline diabetes 02/25/2012 DX:Borderline diabetes Hypertension 02/25/2012 DX:Hypertension Mixed hyperlipidemia 02/25/2012 DX:Mixed hyperlipidemia Psychiatric disorder 02/25/2012 DX:Psychiatric disorder Past Surgical History Past Surgical History: Procedure Laterality Date EYE SURGERY HERNIA REPAIR Social History reports that he has never smoked. He does not have any smokeless tobacco history on file. Denies alcohol denies drug use . Lives alone Independent with ADLs Place without assistance Family History family history includes Other: sudden cardiac (age of onset: 67.00) in his mother. Allergies has No Known Allergies. Home Medications Current Outpatient Medications Medication Instructions aspirin 81 mg EC tablet Take 81 mg by mouth daily. atorvastatin (LIPITOR) 10 mg, oral, Daily benztropine (COGENTIN) 0.5 mg, oral, 2 times daily cholecalciferol (VITAMIN D-3) 25 mcg (1,000 unit) capsule Take by mouth. clotrimazole (LOTRIMIN) 1 % cream Apply to skin and toenails daily for 12 weeks divalproex (DEPAKOTE) [address] tablet Take 500 mg by mouth 2 times daily. finasteride (PROSCAR) 5 mg, oral, Daily haloperidoL (HALDOL) 2 mg tablet Take 2 tablets (4 mg total) by mouth at bedtime. lisinopril-hydroCHLOROthiazide (PRINZIDE,ZESTORETIC) 20-12.5 mg per tablet 1 tablet, oral, Daily tamsulosin (FLOMAX) 0.8 mg, oral, Nightly OBJECTIVE Vitals Visit Vitals BP (!) 156/77 (BP Location: Left arm, Patient Position: Sitting) Pulse 80 Temp 36.7 ??C (98.1 ??F) (Temporal) Resp 18 Temp (24hrs), Av.7 ??C (98.1 ??F), Min:36.7 ??C (98.1 ??F), Max:36.7 ??C (98.1 ??F) There is no height or weight on file to calculate BMI. No results found for: PTWT , PTHT Physical Examination General: Age appropriate, pleasant. No acute distress. Laying comfortably on exam stretcher. Skin: Warm, dry, intact, no diaphoresis. Ecchymosis and bruises on anterior upper chest closer to neck area, nontender to palpation. HEENT: Atraumatic, normocephalic head, Patient is handling secretions without trismus or drooling. Neck: Soft/supple, full range of motion. No cervical spine tenderness noted. Cardiology: Regular rate and rhythm, no rubs or gallops, S1 and S2 auscultated. Respiratory: Clear to auscultation bilaterally, no wheezes, rales or rhonchi. No accessory muscle use, retractions or tripoding; speaking in full sentences without difficulties. Abdominal/GI: Abdomen is not distended, Normal bowel sounds, abdomen soft and non-tender. No CVA tenderness. Peripheral Vascular: No edema on lower legs. Neurological: No focal deficit. CN II-XII grossly intact. Musculoskeletal: No calf tenderness or asymmetry. Moving all extremities at the major joint spaces without difficulty. Psychiatric: Cooperative, appropriate mood & affect. LAB RESULTS (most recent) HEMATOLOGY No results found for: WBC , HGB , HCT , MCV , PLT CHEMISTRY No results found for: GLUCOSE , NA , K , CO2 , CL , BUN , CREATININE , EGFR , CALCIUM , MG , PHOS , ANIONGAP Radiology XR Chest 1 View (Results Pending) ASSESSMENT & PLAN Retropharyngeal abscess 69 y.o. male past medical history significant for hypertension, hyperlipidemia, BPH, bipolar disorder, depression and further history below who was transferred from [facility] ED for further workup and treatment of retropharyngeal abscess. Before coming to this hospital patient received dexamethasone 4 mg x 2, IV Zosyn 4.5 mg x 2. ENT specialist Pita Almeida was contacted during transfer who recommended medical management. CT of the neck showed retropharyngeal collection which may be an abscess extends from C2-C7. CT chest showed edema pattern versus hematoma involving the right thyroid and retropharyngeal. During my evaluation, ecchymosis noted anterior upper chest near the neck no swelling nontender. Patient denies taking blood thinners. Patient is not in respiratory distress, able to protect his airway. There is hoarse voice noted. Patient reports he cannot swallow his pills. -Continue IV Unasyn every 6 hours -Continue IV dexamethasone -Morning continue patient's psych medication and BPH medication tonight hold rest of his medications including aspirin 81 mg daily -Hold chemical prophylaxis due to hematoma -ENT consult placed-input appreciated -Keep patient n.p.o. Bipolar disorder Continue home meds Haldol, benztropine and Depakote BPH Continue home med tamsulosin and finasteride Hypertension -Hold home med lisinopril/HCTZ -Continue IV hydralazine as needed if SBP over 180 Hyperlipidemia -Hold home med statin DVT Prophylaxis: Hold Chemical prophylaxis Pneumoboots Code Status: Full Code HCP:His brother Aureliano Campbell [phone] Yousif 75 minutes or greater was spent on performing a medically appropriate history and physical examination, review of laboratory and radiology data requiring a high level of medical decision making. Cosigned by Pito Yousif MD at 01/04/2025 6:34 AM EST Associated attestation - Pito Yousif MD - 01/04/2025 6:34 AM EST This is a split/shared visit with JOHANN Marcum. I personally performed the medical decision making (MDM) for the care of this patient on 01/04/2025 as documented below 69 year-old male with history of bipolar disorder, hypertension, hyperlipidemia, and benign prostatic hyperplasia transferred from [facility] Emergency Department after presenting there with possible retropharyngeal abscess versus phlegmon. After discussion with the ER provider, the patient was transferred to [facility] for ongoing management. The patient was in his usual state of health until 4 days prior to presentation whenhe developed a sore throat and difficulty swallowing. In the subsequent days, he noted swelling of his neck. He did not have any fevers. He initially thought he might have strep throat but did not seek medical care at that time thinking it would resolve on its own. He then awoke 1 morning with bruising on his upper chest. He does not recall any trauma to the area. After seeing the bruising he sought care in the [facility] Department where CT findings were concerning for a retropharyngealabscess extending from C2-C7. He had no leukocytosis or fever in the ER. He was administered Zosyn and dexamethasone prior to being transferred to [facility]. Initially night the patient had a hoarse voice which has been clearing and he is now speaking without difficulty. He feels he has had significant improvement after receiving the steroids and the antibiotics. He denies any history of easy bruising or bleeding diathesis. He will continue to have nothing by mouth. We will continue dexamethasone 4 mg IV every 6 hours and Unasyn 3 g IV every 6 hours. ENT has been consulted for further evaluation. Pito Yousif MD 01/04/25 6:26 AM EST documented in this encounter Plan of Treatment Upcoming Encounters Date Type Department Care Team (Late st Contact Info) Description 02/14/2025 2:00 PM EDT Office Visit Orthopedic Surgery - [place] [address] [phone] Ptio Lagos, DPM [address] [id number] documented as of this encounter Procedures Procedure Name Priority Date/Time Associated Diagnosis Comments CBC WITH AUTO DIFFERENTIAL Routine 01/05/2025 6:15 AM EST CBC AND DIFFERENTIAL Routine 01/05/2025 6:15 AM EST BASIC METABOLIC PANEL Routine 01/05/2025 6:15 AM EST CBC WITH AUTO DIFFERENTIAL Routine 01/04/2025 6:10 AM EST SEDIMENTATION RATE Routine 01/04/2025 6: 10 AM EST CBC AND DIFFERENTIAL Routine 01/04/2025 6:10 AM EST C-REACTIVE PROTEIN Routine 01/04/2025 6: 10 AM EST BASIC METABOLIC PANEL Routine 01/04/2025 6:10 AM EST XR CHEST 1 VIEW STAT 01/03/2025 9:36 PM EST documented in this encounter Results * (ABNORMAL) CBC auto differential (01/05/2025 6:15 AM EST) WBC 18.0(H) 4.8 - 10.8 K/mcL LAB HEMETOLOGY METHOD 01/05/2025 7:11 AM EST [facility] RBC 4.40(L) 4.50 - 5.50 M/mcL LAB HEMETOLOGY METHOD 01/05/2025 7:11 AM [facility] Hemoglobin 12.8(L) 13.5 - 17.5 g/dL LAB HEMETOLOGY METHOD 01/05/2025 7:11 AM [facility] Hematocrit 37.8(L) 42.0 - 54.0 % LAB HEMETOLOGY METHOD 01/05/2025 7:11 AM [facility] MCV 85.7 79.0 - 98.0 FL LAB HEMETOLOGY METHOD 01/05/2025 7:11 AM [facility] MCH 29.0 27.0 - 32.0 pcg LAB HEMETOLOGY METHOD 01/05/2025 7:11 AM [facility] MCHC 33.9 32.0 - 37.0 g/dL LAB HEMETOLOGY METHOD 01/05/2025 7:11 AM [facility] RDW 12.8 11.0 - 15.0 % LAB HEMETOLOGY METHOD 01/05/2025 7:11 AM [facility] Platelets 274 130 - 400 K/mcL LAB HEMETOLOGY METHOD 01/05/2025 7:11 AM [facility] MPV 10.8 7.0 - 11.0 FL LAB HEMETOLOGY METHOD 01/05/2025 7:11 AM [facility] NRBC 0.0 <1.0 % LAB HEMETOLOGY METHOD 01/05/2025 7:11 AM [facility] NRBC Absolute 0.00 <0.10 K/mcL LAB HEMETOLOGY METHOD 01/05/2025 7:11 AM [facility] Neutrophils Relative 90.0 % LAB HEMETOLOGY METHOD 01/05/2025 7:11 AM [facility] Lymphocytes Relative 6.5 % LAB HEMETOLOGY METHOD 01/05/2025 7:11 AM [facility] Monocytes Relative 2.5 % LAB HEMETOLOGY METHOD 01/05/2025 7:11 AM [facility] Eosinophils Relative 0.0 % LAB HEMETOLOGY METHOD 01/05/2025 7:11 AM [facility] Basophils Relative 0.1 % LAB HEMETOLOGY METHOD 01/05/2025 7:11 AM [facility] Immature Granulocytes Relative 0.9 % LAB HEMETOLOGY METHOD 01/05/2025 7:11 AM [facility] Neutrophils Absolute 16.19(H) 1.50 - 7.00 K/mcL LAB HEMETOLOGY METHOD 01/05/2025 7:11 AM [facility] Lymphocytes Absolute 1.17 1.00 - 5.00 K/mcL LAB HEMETOLOGY METHOD 01/05/2025 7:11 AM [facility] Monocytes Absolute 0.45 0.20 - 1.00 K/mcL LAB HEMETOLOGY METHOD 01/05/2025 7:11 AM [facility] Eosinophils Absolute 0.00 0.00 - 0.50 K/mcL LAB HEMETOLOGY METHOD 01/05/2025 7:11 AM [facility] Basophils Absolute 0.02 0.00 - 0.20 K/mcL LAB HEMETOLOGY METHOD 01/05/2025 7:11 AM [facility] Immature Granulocytes Absolute 0.17(H) 0.00 - 0.03 K/mcL LAB HEMETOLOGY METHOD 01/05/2025 7:11 AM [facility] Blood Venous blood specimen / Unknown Venipuncture / Unknown 01/05/2025 6:15 AM EST 01/05/2025 6:54 AM EST [employer] Samir RAMIREZ LAB BLOOD ORDERABLES Final R esult [facility] [address] [place] [address], * (ABNORMAL) Basic metabolic panel (01/05/2025 6:15 AM EST) Sodium 140 133 - 145 mmol/L LAB CHEMISTRY METHOD 01/05/2025 7:38 AM [facility] Potassium 3.8 3.5 - 5.5 mmol/L LAB CHEMISTRY METHOD 01/05/2025 7:38 AM [facility] Chloride 106 96 - 110 mmol/L LAB CHEMISTRY METHOD 01/05/2025 7:38 AM [facility] CO2 27 21 - 32 mmol/L LAB CHEMISTRY METHOD 01/05/2025 7:38 AM [facility] Anion Gap 7 3 - 11 LAB CHEMISTRY METHOD 01/05/2025 7:38 AM [facility] Glucose 124(H) 70 - 100 mg/dL LAB CHEMISTRY METHOD 01/05/2025 7:38 AM [facility] BUN 25 5 - 25 mg/dL LAB CHEMISTRY METHOD 01/05/2025 7:38 AM [facility] Creatinine 1.25 0.70 - 1.30 mg/dL LAB CHEMISTRY METHOD 01/05/2025 7:38 AM [facility] eGFR 62 >=60 mL/min/1. 73m2 LAB CHEMISTRY METHOD 01/05/2025 7:38 AM [facility] Comment:Calculation based on the??Chronic Kidney Disease Epidemiology Collaboration (CKD-EPI) equation refit??without adjustment for race. BUN/Creatinine Ratio 20.0 LAB CHEMISTRY METHOD 01/05/2025 7:38 AM [facility] Calcium 9.9 8.5 - 10.5 mg/dL LAB CHEMISTRY METHOD 01/05/2025 7:38 AM [facility] Blood Venous blood specimen / Unknown Venipuncture / Unknown 01/05/2025 6:15 AM EST 01/05/2025 6:54 AM EST Mannie Dawson MD LAB BLOOD ORDERABLES Final R esult [facility] [address] [place] [address], * (ABNORMAL) CBC auto differential (01/04/2025 6:10 AM EST) WBC 10.7 4.8 - 10.8 K/mcL LAB HEMETOLOGY METHOD 01/04/2025 6:45 AM [facility] RBC 4.60 4.50 - 5.50 M/mcL LAB HEMETOLOGY METHOD 01/04/2025 6:45 AM [facility] Hemoglobin 13.2(L) 13.5 - 17.5 g/dL LAB HEMETOLOGY METHOD 01/04/2025 6:45 AM [facility] Hematocrit 38.8(L) 42.0 - 54.0 % LAB HEMETOLOGY METHOD 01/04/2025 6:45 AM [facility] MCV 84.9 79.0 - 98.0 FL LAB HEMETOLOGY METHOD 01/04/2025 6:45 AM [facility] MCH 28.9 27.0 - 32.0 pcg LAB HEMETOLOGY METHOD 01/04/2025 6:45 AM [facility] MCHC 34.0 32.0 - 37.0 g/dL LAB HEMETOLOGY METHOD 01/04/2025 6:45 AM [facility] RDW 12.6 11.0 - 15.0 % LAB HEMETOLOGY METHOD 01/04/2025 6:45 AM [facility] Platelets 266 130 - 400 K/mcL LAB HEMETOLOGY METHOD 01/04/2025 6:45 AM [facility] MPV 10.5 7.0 - 11.0 FL LAB HEMETOLOGY METHOD 01/04/2025 6:45 AM [facility] NRBC 0.0 <1.0 % LAB HEMETOLOGY METHOD 01/04/2025 6:45 AM [facility] NRBC Absolute 0.00 <0.10 K/mcL LAB HEMETOLOGY METHOD 01/04/2025 6:45 AM [facility] Neutrophils Relative 86.1 % LAB HEMETOLOGY METHOD 01/04/2025 6:45 AM [facility] Lymphocytes Relative 11.5 % LAB HEMETOLOGY METHOD 01/04/2025 6:45 AM [facility] Monocytes Relative 1.9 % LAB HEMETOLOGY METHOD 01/04/2025 6:45 AM [facility] Eosinophils Relative 0.0 % LAB HEMETOLOGY METHOD 01/04/2025 6:45 AM [facility] Basophils Relative 0.0 % LAB HEMETOLOGY METHOD 01/04/2025 6:45 AM [facility] Immature Granulocytes Relative 0.5 % LAB HEMETOLOGY METHOD 01/04/2025 6:45 AM [facility] Neutrophils Absolute 9.20(H) 1.50 - 7.00 K/mcL LAB HEMETOLOGY METHOD 01/04/2025 6:45 AM [facility] Lymphocytes Absolute 1.23 1.00 - 5.00 K/mcL LAB HEMETOLOGY METHOD 01/04/2025 6:45 AM [facility] Monocytes Absolute 0.20 0.20 - 1.00 K/mcL LAB HEMETOLOGY METHOD 01/04/2025 6:45 AM [facility] Eosinophils Absolute 0.00 0.00 - 0.50 K/mcL LAB HEMETOLOGY METHOD 01/04/2025 6:45 AM [facility] Basophils Absolute 0.00 0.00 - 0.20 K/mcL LAB HEMETOLOGY METHOD 01/04/2025 6:45 AM EST [facility] Immature Granulocytes Absolute 0.05(H) 0.00 - 0.03 K/mcL LAB HEMETOLOGY METHOD 01/04/2025 6:45 AM [facility] Blood Venous blood specimen / Unknown Venipuncture / Unknown 01/04/2025 6:10 AM EST 01/04/2025 6:22 AM EST us Pito Yousif MD LAB BLOOD ORDERABLES Final Result [facility] [address] [place] [address], * (ABNORMAL) Basic metabolic panel (01/04/2025 6:10 AM EST) Sodium 141 133 - 145 mmol/L LAB CHEMISTRY METHOD 01/04/2025 7:04 AM [facility] Potassium 3.8 3.5 - 5.5 mmol/L LAB CHEMISTRY METHOD 01/04/2025 7:04 AM [facility] Chloride 107 96 - 110 mmol/L LAB CHEMISTRY METHOD 01/04/2025 7:04 AM [facility] CO2 27 21 - 32 mmol/L LAB CHEMISTRY METHOD 01/04/2025 7:04 AM [facility] Anion Gap 7 3 - 11 LAB CHEMISTRY METHOD 01/04/2025 7:04 AM [facility] Glucose 155(H) 70 - 100 mg/dL LAB CHEMISTRY METHOD 01/04/2025 7:04 AM [facility] BUN 21 5 - 25 mg/dL LAB CHEMISTRY METHOD 01/04/2025 7:04 AM [facility] Creatinine 1.27 0.70 - 1.30 mg/dL LAB CHEMISTRY METHOD 01/04/2025 7:04 AM [facility] eGFR 61 >=60 mL/min/1. 73m2 LAB CHEMISTRY METHOD 01/04/2025 7:04 AM [facility] Comment:Calculation based on the??Chronic Kidney Disease Epidemiology Collaboration (CKD-EPI) equation refit??without adjustment for race. BUN/Creatinine Ratio 16.5 LAB CHEMISTRY METHOD 01/04/2025 7:04 AM [facility] Calcium 9.7 8.5 - 10.5 mg/dL LAB CHEMISTRY METHOD 01/04/2025 7:04 AM [facility] Blood Venous blood specimen / Unknown Venipuncture / Unknown 01/04/2025 6:10 AM EST 01/04/2025 6:24 AM EST [employer] PA LAB BLOOD ORDERABLES Final Resu lt Performing Organization Address City/[facility]/ZIP Co de Phone Number [facility] [address] [place] [address], [place] [phone] * Sedimentation rate (01/04/2025 6:10 AM EST) Sed Rate 13 0 - 20 mm/hr LAB HEMETOLOGY METHOD 01/04/2025 7:09 AM [facility] Blood Venous blood specimen / Unknown Venipuncture / Unknown 01/04/2025 6:10 AM EST 01/04/2025 6:22 AM EST [employer] LAB BLOOD ORDERABLES Final Resu lt [facility] [address] [place] [address], [place] [phone] * (ABNORMAL) C-reactive protein (01/04/2025 6:10 AM EST) C-Reactive Protein 0.63(H) <=0.50 mg/dL LAB CHEMISTRY METHOD 01/04/2025 7:04 AM EST [facility] Blood Venous blood specimen / Unknown Venipuncture / Unknown 01/04/2025 6:10 AM EST 01/04/2025 6:24 AM EST us Vickie WILLS LAB BLOOD ORDERABLES Final Resu lt [facility] ([facility] [address] [place] [address], [place] [phone] * XR Chest 1 View (01/03/2025 9:36 PM EST) Anatomical Region Laterality Modality Body Radiographic Nikia ging 01/04/2025 8:40 AM EST Impressions 01/04/2025 8:41 AM EST Impression: No active pulmonary process identified. Telerad JOHANN ([id number]) -------- FINAL REPORT -------- Dictated By: Kalie Walker Dictated Date: 01/04/2025 08:40 ET Assigned Physician: Kalie Walker Reviewed and Electronically Signed By: Kalie Walker Signed Date: 01/04/2025 08:41 ET Workstation ID: [id number] Transcribed By: Self Edit Transcribed Date: 01/04/2025 08:40 ET Narrative 01/04/2025 8:41 AM EST History: Dyspnea on exertion. Comparison: No previous imaging at this institution. Findings: Portable AP upright chest at 9:30 PM. The cardiac silhouette is normal in size. Hilar contours and pulmonary vascularity appear normal. The lungs are clear. No sizable pleural fluid collection is seen. Procedure Note Kalie Walker MD - 01/04/2025 History: Dyspnea on exertion. Comparison: No previous imaging at this institution. Findings: Portable AP upright chest at 9:30 PM. The cardiac silhouette is normal insize. Hilar contours and pulmonary vascularity appear normal. The lungsare clear. No sizable pleural fluid collection is seen. IMPRESSION: Impression: No active pulmonary process identified. Telerad JOHANN ([id number]) -------- FINAL REPORT -------- Dictated By: Kalie Walker Dictated Date: 01/04/2025 08:40 ET Assigned Physician: Kalie Walker Reviewed and Electronically Signed By: Kalie Walker Signed Date: 01/04/2025 08:41 ET Workstation ID: [id number] Transcribed By: Self Edit Transcribed Date: 01/04/2025 08:40 ET Vickie WILLS IMG XR PROCEDURES Final Result documented in this encounter Visit Diagnoses Diagnosis Retropharyngeal abscess- Primary documented in this encounter Admitting Diagnoses Diagnosis Retropharyngeal abscess documented in this encounter Administered Medications Inactive Administered Medications - up to 3 most recent administrations Medication Order MAR Action Action Date Dose Rate Site ampicillin-sulbactam (UNASYN) 3 g in sodium chloride 0.9 % 100 mL IVPB 3 g, intravenous, at 200 mL/hr, Administer over 30 Minutes, Every 6 hours, First dose on Thu01/03/25 at 2330, For 5 doses, Indication: Skin/Soft Tissue New Bag 01/04/2025 11:18 PM EST 3 g 200 mL/hr New Bag 01/04/2025 5:47 PM EST 3 g 200 mL/hr New Bag 01/04/2025 11:55 AM EST 3 g 200 mL/hr ampicillin-sulbactam (UNASYN) 3 g in sodium chloride 0.9 % 100 mL IVPB 3 g, intravenous, at 200 mL/hr, Administer over 30 Minutes, Every 6 hours, First dose (after last reorder) on Thu01/05/25 at 0900, For 5 doses, Indication: Skin/Soft Tissue New Bag 01/05/2025 9:35 AM EST 3 g 200 mL/hr benztropine (COGENTIN) tablet 0.5 mg 0.5 mg, oral, 2 times daily, First dose on Thu01/03/25 at 2100 Given 01/05/2025 9:36 AM EST 0.5 mg Given 01/04/2025 8:41 PM EST 0.5 mg Given 01/04/2025 9:42 AM EST 0.5 mg dexAMETHasone (DECADRON) injection 4 mg 4 mg, intravenous, Every 6 hours scheduled, First dose on Thu01/03/25 at 2330 Given 01/05/2025 12:16 PM EST 4 mg Left Forearm Given 01/05/2025 5:16 AM EST 4 mg Given 01/04/2025 11:18 PM EST 4 mg divalproex (DEPAKOTE) DR tablet 500 mg 500 mg, oral, Every 12 hours scheduled, First dose on Thu01/03/25 at 2100, HAZARDOUS Drug Precautions - Low Risk (Category A/NIOSH Group 3) Reproductive Risk Only: - Do NOT split, crush, or open dosage units - Single pair of ASTM standard [id number] certified chemotherapy gloves - Eye protection (goggles or face shield) required only with a potential for facial contact (i.e. concern for spitting or vomiting of the dose during or after administration) Given 01/05/2025 9:36 AM EST 500 mg Given 01/04/2025 8:41 PM EST 500 mg Given 01/04/2025 9:41 AM EST 500 mg finasteride (PROSCAR) tablet 5 mg 5 mg, oral, Daily, First dose on Thu01/03/25 at 2000, HAZARDOUS Drug Precautions - Low Risk (Category A/NIOSH Group 3) Reproductive Risk Only: - Do NOT split, crush, or open dosage units - Single pair of ASTM standard [id number] certified chemotherapy gloves - Eye protection (goggles or face shield) required only with a potential for facial contact (i.e. concern for spitting or vomiting of the dose during or after administration) Given 01/05/2025 9:36 AM EST 5 mg Given 01/03/2025 10:05 PM EST 5 mg haloperidoL (HALDOL) tablet 2 mg 2 mg, oral, 2 times daily, First dose on Thu01/03/25 at 2100 Given 01/05/2025 9:36 AM EST 2 mg Given 01/04/2025 8:40 PM EST 2 mg Given 01/04/2025 9:42 AM EST 2 mg hydrALAZINE (APRESOLINE) tablet 10 mg 10 mg, oral, Every 8 hours PRN, systolic BP greater than:, 180, Starting on Thu01/03/25 at 2214 lactated Ringer's infusion 100 mL/hr, intravenous, Continuous, Starting on Thu01/03/25 at 2000, For 20 hours Restarted 01/04/2025 10:52 AM EST 100 mL/hr 100 mL/hr New Bag 01/03/2025 10:05 PM EST 100 mL/hr 100 mL/hr ondansetron (PF) (ZOFRAN) injection 4 mg 4 mg, intravenous, Every 8 hours PRN, vomiting, nausea, Starting on Thu01/03/25 at 1934, -ONLY give IV if patient is unable to take orally. -If inadequate response within 30 minutes, proceed to next-line agent or contact provider if no further options ordered. ondansetron ODT (ZOFRAN-ODT) disintegrating tablet 4 mg 4 mg, oral, Every 8 hours PRN, vomiting, nausea, Starting on Thu01/03/25 at 1934, -Give IV if patient is unable to take orally. -If inadequate response within 30 minutes, proceed to next-line agent or contact provider if no further options ordered. For ODT tablets: -Do not remove from blister pack until just before administering. -Patient should allow tablet to dissolve on tongue. prochlorperazine (COMPAZINE) injection 10 mg 10 mg, intravenous, Every 6 hours PRN, nausea, vomiting, Starting on Thu01/03/25 at 1934, 2nd Line Option: -ONLY give IV if patient is unable to take orally. -Give IM if patient does not have IV Access -If inadequate response within 30 minutes, proceed to next-line agent or contact provider if no further options ordered. prochlorperazine (COMPAZINE) suppository 25 mg 25 mg, rectal, Every 12 hours PRN, nausea, vomiting, Starting on Thu01/03/25 at 1934, 2nd Line Option: -ONLY give MD if patient is unable to take orally and cannot receive IV/IM. -If inadequate response within 30 minutes, proceed to next-line agent or contact provider if no further options ordered. prochlorperazine (COMPAZINE) tablet 10 mg 10 mg, oral, Every 6 hours PRN, nausea, vomiting, Starting on Thu01/03/25 at 1934, 2nd Line Option: -Give IV or IM if patient is unable to take orally. -If inadequate response within 30 minutes, proceed to next-line agent or contact provider if no further options ordered. sodium chloride 0.9 % flush 10 mL 10 mL, intravenous, 2 times daily, First dose on Thu01/03/25 at 2100 Given 01/05/2025 9:36 AM EST 10 mL Given 01/04/2025 8:41 PM EST 10 mL Given 01/04/2025 9:42 AM EST 10 mL sodium chloride 0.9 % flush 10 mL 10 mL, intravenous, As needed, line care, Starting on Thu01/03/25 at 1934 tamsulosin (FLOMAX) 24 hr capsule 0.8 mg 0.8 mg, oral, Nightly, First dose on Thu01/03/25 at 2100, For oral administration: capsules should be swallowed whole (Do not crush, chew, or open). For tube administration: open capsule and administer with water (granules should NOT be crushed). Given 01/04/2025 8:41 PM EST 0.8 mg Given 01/03/2025 10:04 PM EST 0.8 mg documented in this encounter Historical Medications * This list may reflect changes made after this encounter. finasteride (PROSCAR) 5 mg tablet Take 1 tablet (5 mg total) by mouth 1 (one) time each day. 03/07/2024 tamsulosin (FLOMAX) 0.4 mg 24 hr capsule Take 2 capsules (0.8 mg total) by mouth at bedtime. benztropine (COGENTIN) 0.5 mg tablet Take 1 tablet (0.5 mg total) by mouth 2 (two) times a day. atorvastatin (LIPITOR) 10 mg tablet Take 1 tablet (10 mg total) by mouth 1 (one) time each day. added in this encounter Active and Recently Administered Medications Times are shown in EST. Scheduled Medication Order 01/03/2025 01/04/2025 01/05/2025 ampicillin-sulbactam (UNASYN) 3 g in sodium chloride 0.9 % 100 mL IVPB (COMPLETED) 3 g, intravenous, at 200 mL/hr, Administer over 30 Minutes, Every 6 hours, First dose on Thu01/03/25 at 2330, For 5 doses, Indication: Skin/Soft Tissue 2335 (New Bag - Provider: Margie Varela RN) 0050 (Stopped - Provider: Margie Varela RN)0618 (New Bag - Provider: Margie Varela RN)0733 (Stopped - Provider: Margie Varela RN)1155 (New Bag - Provider: Axel Kebede RN)1225 (Stopped - Provider: Axel Kebede RN)1747 (New Bag - Provider: Elsa Martins)1817 (Stopped - Provider: Axel Kebede RN)2318 (New Bag - Provider: Fely Jenkins RN) 0000 (Stopped - Provider: Fely Jenkins RN) ampicillin-sulbactam (UNASYN) 3 g in sodium chloride 0.9 % 100 mL IVPB 3 g, intravenous, at 200 mL/hr, Administer over 30 Minutes, Every 6 hours, First dose (after last reorder) on Maria 01/05/25 at 0900, For 5 doses, Indication: Skin/Soft Tissue 0935 (New Bag - Provider: Raza Roa RN)1051 (Stopped - Provider: Raza Roa RN)1500 (Canceled Entry - Provider: Automatic Discharge Provider - Comment: Automatically canceled at discontinue of medication order) benztropine (COGENTIN) tablet 0.5 mg 0.5 mg, oral, 2 times daily, First dose on Thu01/03/25 at 2100 2205 (Given - Provider: Margie Varela RN) 0942 (Given - Provider: Axel Kebede RN)2041 (Given - Provider: Fely Jenkins RN) 0936 (Given - Provider: Raza Roa RN) dexAMETHasone (DECADRON) injection 4 mg 4 mg, intravenous, Every 6 hours scheduled, First dose on Thu01/03/25 at 2330 2334 (Given - Provider: Margie Varela RN) 0618 (Given - Provider: Margie Varela RN)1155 (Given - Provider: Axel Kebede RN)1747 (Given - Provider: Elsa Martins)2318 (Given - Provider: Fely Jenkins, EVDIN) 0516 (Given - Provider: Fely Jenkins RN)1216 (Given - Provider: Raza Roa RN) divalproex (DEPAKOTE) DR tablet 500 mg 500 mg, oral, Every 12 hours scheduled, First dose on Thu01/03/25 at 2099, HAZARDOUS Drug Precautions - Low Risk (Category A/NIOSH Group 3) Reproductive Risk Only: - Do NOT split, crush, or open dosage units - Single pair of ASTM standard D6978 certified chemotherapy gloves - Eye protection (goggles or face shield) required only with a potential for facial contact (i.e. concern for spitting or vomiting of the dose during or after administration) 2204 (Given - Provider: Margie Varela RN) 0941 (Given - Provider: Axel Kebede RN)2040 (Given - Provider: Fely Jenkins, EDVIN) 0936 (Given - Provider: Raza Roa RN) finasteride (PROSCAR) tablet 5 mg 5 mg, oral, Daily, First dose on Thu01/03/25 at 2000, HAZARDOUS Drug Precautions - Low Risk (Category A/NIOSH Group 3) Reproductive Risk Only: - Do NOT split, crush, or open dosage units - Single pair of ASTM standard [id number] certified chemotherapy gloves - Eye protection (goggles or face shield) required only with a potential for facial contact (i.e. concern for spitting or vomiting of the dose during or after administration) 2204 (Given - Provider: Margie Varela RN) 0940 (Not Given - Provider: Axel Kebede RN - Reason: Other - Comment: GIven 01/03/25 at 2204) 0936 (Given - Provider: Raza Roa RN) haloperidoL (HALDOL) tablet 2 mg 2 mg, oral, 2 times daily, First dose on Thu01/03/25 at 2099 2204 (Given - Provider: Margie Varela RN) 0942 (Given - Provider: Axel Kebede RN)2039 (Given - Provider: Fely Jenkins RN) 0936 (Given - Provider: Raza Roa RN) sodium chloride 0.9 % flush 10 mL(Linked Group 1) 10 mL, intravenous, 2 times daily, First dose on Thu01/03/25 at 2099 2206 (Given - Provider: Margie Varela RN) 0942 (Given - Provider: Axel Kebede RN)2040 (Given - Provider: Fely Jenkins, EDVIN) 0936 (Given - Provider: Raza Roa RN) tamsulosin (FLOMAX) 24 hr capsule 0.8 mg 0.8 mg, oral, Nightly, First dose on Thu01/03/25 at 2100, For oral administration: capsules should be swallowed whole (Do not crush, chew, or open). For tube administration: open capsule and administer with water (granules should NOT be crushed). 2203 (Given - Provider: Margie Varela RN) 2040 (Given - Provider: Fely Jenkins, EDVIN) Continuous Medication Order 01/03/2025 01/04/2025 01/05/2025 lactated Ringer's infusion () 100 mL/hr, intravenous, Continuous, Starting on Thu01/03/25 at 2000, For 20 hours 2204 (New Bag - Provider: Margie Varela RN) 0946 (Paused - Provider: Axel Kebede RN - Comment: needs iv access)1052 (Restarted - Provider: Axel Kebede RN)1938 (Stopped - Provider: Axel Kebede RN) PRN Medication Order 01/03/2025 01/04/2025 01/05/2025 acetaminophen (TYLENOL) tablet 650 mg 650 mg, oral, Every 4 hours PRN, mild pain, headaches, fever - temperature GREATER than 38 C (100.4 F), Starting on Thu01/03/25 at 1934 hydrALAZINE (APRESOLINE) tablet 10 mg 10 mg, oral, Every 8 hours PRN, systolic BP greater than:, 180, Starting on Thu01/03/25 at 2214 ondansetron (PF) (ZOFRAN) injection 4 mg(Linked Group 2) 4 mg, intravenous, Every 8 hours PRN, vomiting, nausea, Starting on Thu01/03/25 at 1934, -ONLY give IV if patient is unable to take orally. -If inadequate response within 30 minutes, proceed to next-line agent or contact provider if no further options ordered. ondansetron ODT (ZOFRAN-ODT) disintegrating tablet 4 mg(Linked Group 2) 4 mg, oral, Every 8 hours PRN, vomiting, nausea, Starting on Thu01/03/25 at 1933, -Give IV if patient is unable to take orally. -If inadequate response within 30 minutes, proceed to next-line agent or contact provider if no further options ordered. For ODT tablets: -Do not remove from blister pack until just before administering. -Patient should allow tablet to dissolve on tongue. prochlorperazine (COMPAZINE) injection 10 mg(Linked Group 3) 10 mg, intravenous, Every 6 hours PRN, nausea, vomiting, Starting on Thu01/03/25 at 1933, 2nd Line Option: -ONLY give IV if patient is unable to take orally. -Give IM if patient does not have IV Access -If inadequate response within 30 minutes, proceed to next-line agent or contact provider if no further options ordered. prochlorperazine (COMPAZINE) suppository 25 mg(Linked Group 3) 25 mg, rectal, Every 12 hours PRN, nausea, vomiting, Starting on Thu01/03/25 at 1933, 2nd Line Option: -ONLY give MD if patient is unable to take orally and cannot receive IV/IM. -If inadequate response within 30 minutes, proceed to next-line agent or contact provider if no further options ordered. prochlorperazine (COMPAZINE) tablet 10 mg(Linked Group 3) 10 mg, oral, Every 6 hours PRN, nausea, vomiting, Starting on Thu01/03/25 at 1933, 2nd Line Option: -Give IV or IM if patient is unable to take orally. -If inadequate response within 30 minutes, proceed to next-line agent or contact provider if no further options ordered. sodium chloride 0.9 % flush 10 mL(Linked Group 1) 10 mL, intravenous, As needed, line care, Starting on Thu01/03/25 at 1933 Linked Groups Order Group 1: Insert peripheral IV (CANCELED) STAT, Once, On Thu01/03/25 at 1934, For 1 occurrence And Maintain IV access (CANCELED) Until discontinued, Starting on Thu01/03/25 at 1934, Until Specified And Saline lock IV (CANCELED) Routine, Once, On Thu01/03/25 at 1934, For 1 occurrence And sodium chloride 0.9 % flush 10 mLJump to med 10 mL, intravenous, 2 times daily, First dose on Thu01/03/25 at 2100 And sodium chloride 0.9 % flush 10 mLJump to med 10 mL, intravenous, As needed, line care, Starting on Thu01/03/25 at 4 Group 2: ondansetron ODT (ZOFRAN-ODT) disintegrating tablet 4 mgJump to med 4 mg, oral, Every 8 hours PRN, vomiting, nausea, Starting on Thu01/03/25 at 4, -Give IV if patient is unable to take orally. -If inadequate response within 30 minutes, proceed to next-line agent or contact provider if no further options ordered. For ODT tablets: -Do not remove from blister pack until just before administering. -Patient should allow tablet to dissolve on tongue. Or ondansetron (PF) (ZOFRAN) injection 4 mgJump to med 4 mg, intravenous, Every 8 hours PRN, vomiting, nausea, Starting on Thu01/03/25 at 1933, -ONLY give IV if patient is unable to take orally. -If inadequate response within 30 minutes, proceed to next-line agent or contact provider if no further options ordered. Group 3: prochlorperazine (COMPAZINE) tablet 10 mgJump to med 10 mg, oral, Every 6 hours PRN, nausea, vomiting, Starting on Thu01/03/25 at 1933, 2nd Line Option: -Give IV or IM if patient is unable to take orally. -If inadequate response within 30 minutes, proceed to next-line agent or contact provider if no further options ordered. Or prochlorperazine (COMPAZINE) injection 10 mgJump to med 10 mg, intravenous, Every 6 hours PRN, nausea, vomiting, Starting on Thu01/03/25 at 1933, 2nd Line Option: -ONLY give IV if patient is unable to take orally. -Give IM if patient does not have IV Access -If inadequate response within 30 minutes, proceed to next-line agent or contact provider if no further options ordered. Or prochlorperazine (COMPAZINE) suppository 25 mgJump to med 25 mg, rectal, Every 12 hours PRN, nausea, vomiting, Starting on Thu01/03/25 at 193, 2nd Line Option: -ONLY give MD if patient is unable to take orally and cannot receive IV/IM. -If inadequate response within 30 minutes, proceed to next-line agent or contact provider if no further options ordered. documented in this encounter Orders Medications Ordered That Hardeep ht Not Have Been Administered Count Last Ordered Date First Ordered Date acetaminophen (TYLENOL) tablet 650 mg 1 02/2025 ampicillin-sulbactam (UNASYN ) 3 g in sodium chloride 0.9 % 100 mL IVPB 1 01/03/2025 hydrALAZINE (APRESOLINE) tablet 10 mg 1 02/2025 ondansetron (PF) (ZOFRAN) injection 4 mg 1 01/03/2025 ondansetron ODT (ZOFRAN-ODT) disintegrating tablet 4 mg 1 01/03/2025 prochlorperazine (COMPAZINE) injection 10 mg 1 01/03/2025 prochlorperazine (COMPAZINE) suppository 25 mg 1 01/03/2025 prochlorperazine (COMPAZINE) tablet 10 mg 1 01/03/2025 sodium chloride 0.9 % flush 10 mL 1 025 Admission Count Last Ordered Date First Orde red Date ADMIT TO INPATIENT 1 01/03/2025 Discharge Count Last Ordered Date First Orde red Date DISCHARGE PATIENT 1 01/05/2025 documented in this encounter Care Teams Crts Relationship Specialty Start Date End Date Lor Jeffrey MD [address] [place] [address] PCP - General 07/27/24 documented as of this encounter
--- OUTSIDE RECORDS SUMMARY | 2025-01-20 12:02 | XMS_ITS | Clinical Summary ---
Author Organization [address] [facility] Address [address] [place] [address] Phone Care Team Providers Care Classification Control Clerk Name Role Phone Lor Jeffrey MD Primary Care Provider Allergies No known active allergies Medications clotrimazole (LOTRIMIN) 1 % cream Apply to skin and toenails daily for 12 weeks 4 Active haloperidoL (HALDOL) 2 mg tablet Take 2 tablets (4 mg total) by mouth at bedtime. Active divalproex (DEPAKOTE) [address] tablet Take 500 mg by mouth 2 times daily. Active lisinopril-hydr oCHLOROthiazide (PRINZIDE,ZESTO RETIC) 20-12.5 mg per tablet Take 1 tablet by mouth 1 (one) time each day. Active cholecalciferol (VITAMIN D-3) 25 mcg (1,000 unit) capsule Take by mouth. Active aspirin 81 mg EC tablet Take 81 mg by mouth daily. Active atorvastatin (LIPITOR) 10 mg tablet Take 1 tablet (10 mg total) by mouth 1 (one) time each day. Active benztropine (COGENTIN) 0.5 mg tablet Take 1 tablet (0.5 mg total) by mouth 2 (two) times a day. Active tamsulosin (FLOMAX) 0.4 mg 24 hr capsule Take 2 capsules (0.8 mg total) by mouth at bedtime. Active finasteride (PROSCAR) 5 mg tablet Take 1 tablet (5 mg total) by mouth 1 (one) time each day. 4 Active amoxicillin-cla vulanate (AUGMENTIN) 875-125 mg per tablet Take 1 tablet by mouth 2 (two) times a day for 13 days. 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 Psychiatric disorder 02/25/2012 Mixed hyperlipidemia 02/25/2012 Hypertension 02/25/2012 Borderline diabetes 02/25/2012 Encounters Date Type Department Care Team Description 01/03/2025 7:18 PM EST - 01/05/2025 2:47 PM EST Hospital Encounter [facility] [address] [place] [address] Heike Dalton MD Jones, Christopher, MD Kokosadze, Estate, MD Discharge Disposition: Home or Self Care from Last 3 Months Immunizations Name Administration Dates Next Due Moderna SARS-CoV-2 COVID-19, mRNA, LNP-S, preservative free 08/14/2022 Surgical History Surgery Date Site/Laterality Comments HERNIA REPAIR EYE SURGERY Medical History Medical History Date Comments Psychiatric disorder 02/25/2012 DX:Psychiat jaime disorder Hypertension 02/25/2012 DX:Hypertension Borderline diabetes 02/25/2012 DX:Borderlin e diabetes Mixed hyperlipidemia 02/25/2012 DX:Mixed hy perlipidemia Bipolar 2 disorder (CMS/HCC) Family History Medical History Relation Name Comments [...] on file Sexual Orientation Not on file Obstetrics History Last Filed [...] Mass Index 30.8 01/03/2025 9:00 PM EST Plan of Treatment Upcoming Encounters Date Type Department Care Team (Late st Contact Info) Description 02/14/2025 2:00 PM EDT Office Visit Orthopedic Surgery - [place] [address] [phone] Pito Lagos, DPM [address] [address] Health Maintenance Due Date Last Done Comments DTaP,Tdap,and Td Vaccines (1 - Tdap) 1974 Cholesterol Screening (Lipid Panel) 09/16/2024 Colorectal Cancer Screening: Colonoscopy 09/16/2024 Depression Screening 09/16/2024 Hepatitis C Screening 09/16/2024 Medicare Annual Wellness Visit 09/16/2024 Social Influencers of Health Screening 09/16/2024 Falls Risk Assessment 01/05/2026 01/05/2025 Hypertension/CHF/CAD Annual BMP Blood Test 01/05/2026 01/05/2025, 01/04/2025 RSV Immunization Patients 60+ Years Old (1 - 1-dose 75+ series) 2029 Zoster [...] patient's age to complete this topic Meningococcal B Vacine Aged Out No lo nger eligible based on patient's age to complete this topic RSV Immunization Patients Under 20 months Aged Out No longer eligible based on patient's age to complete this topic Varicella Vaccines Aged Out No longer eligible based on patient's age to complete this topic Procedures Procedure Name Priority Date/Time Associated Diagnosis Comments CBC WITH AUTO DIFFERENTIAL Routine 01/05/2025 6:15 AM EST BASIC METABOLIC PANEL Routine 01/05/2025 6:15 AM EST CBC AND DIFFERENTIAL Routine 01/05/2025 6:15 AM EST CBC WITH AUTO DIFFERENTIAL Routine 01/04/2025 6:10 AM EST BASIC METABOLIC PANEL Routine 01/04/2025 6:10 AM EST SEDIMENTATION RATE Routine 01/04/2025 6: 10 AM EST C-REACTIVE PROTEIN Routine 01/04/2025 6: 10 AM EST CBC AND DIFFERENTIAL Routine 01/04/2025 6:10 AM EST XR CHEST 1 VIEW STAT 01/03/2025 9:36 PM EST from Last 3 Months Results * (ABNORMAL) CBC auto differential (01/05/2025 6:15 AM EST) Only the most recent of2 resultswithin the time period is included. [facility] Signature WBC 18.0(H) 4.8 - 10.8 K/mcL LAB HEMETOLOGY METHOD 01/05/2025 7:11 AM EST [facility] RBC 4.40(L) 4.50 - 5.50 M/mcL LAB HEMETOLOGY METHOD 01/05/2025 7:[address] [facility] Hemoglobin 12.8(L) 13.5 - 17.5 g/dL LAB HEMETOLOGY METHOD 01/05/2025 7:[address] [facility] Hematocrit 37.8(L) 42.0 - 54.0 % LAB HEMETOLOGY METHOD 01/05/2025 7:[address] [facility] MCV 85.7 79.0 - 98.0 FL LAB HEMETOLOGY METHOD 01/05/2025 7:[address] [facility] MCH 29.0 27.0 - 32.0 pcg LAB HEMETOLOGY METHOD 01/05/2025 7:[address] [facility] MCHC 33.9 32.0 - 37.0 g/dL LAB HEMETOLOGY METHOD 01/05/2025 7:[address] [facility] RDW 12.8 11.0 - 15.0 % LAB HEMETOLOGY METHOD 01/05/2025 7:[address] [facility] Platelets 274 130 - 400 K/mcL LAB HEMETOLOGY METHOD 01/05/2025 7:[address] [facility] MPV 10.8 7.0 - 11.0 FL LAB HEMETOLOGY METHOD 01/05/2025 7:[address] [facility] NRBC 0.0 <1.0 % LAB HEMETOLOGY METHOD 01/05/2025 7:[address] [facility] NRBC Absolute 0.00 <0.10 K/mcL LAB HEMETOLOGY METHOD 01/05/2025 7:[address] [facility] Neutrophils Relative 90.0 % LAB HEMETOLOGY METHOD 01/05/2025 7:[address] [facility] Lymphocytes Relative 6.5 % LAB HEMETOLOGY METHOD 01/05/2025 7:[address] [facility] Monocytes Relative 2.5 % LAB HEMETOLOGY METHOD 01/05/2025 7:[address] [facility] Eosinophils Relative 0.0 % LAB HEMETOLOGY METHOD 01/05/2025 7:[address] [facility] Basophils Relative 0.1 % LAB HEMETOLOGY METHOD 01/05/2025 7:[address] [facility] Immature Granulocytes Relative 0.9 % LAB HEMETOLOGY METHOD 01/05/2025 7:[address] [facility] Neutrophils Absolute 16.19(H) 1.50 - 7.00 K/mcL LAB HEMETOLOGY METHOD 01/05/2025 7:[address] [facility] Lymphocytes Absolute 1.17 1.00 - 5.00 K/mcL LAB HEMETOLOGY METHOD 01/05/2025 7:[address] [facility] Monocytes Absolute 0.45 0.20 - 1.00 K/mcL LAB HEMETOLOGY METHOD 01/05/2025 7:[address] [facility] Eosinophils Absolute 0.00 0.00 - 0.50 K/mcL LAB HEMETOLOGY METHOD 01/05/2025 7:[address] [facility] Basophils Absolute 0.02 0.00 - 0.20 K/mcL LAB HEMETOLOGY METHOD 01/05/2025 7:[address] [facility] Immature Granulocytes Absolute 0.17(H) 0.00 - 0.03 K/mcL LAB HEMETOLOGY METHOD 01/05/2025 7:[address] [facility] Blood Venous blood specimen / Unknown Venipuncture / Unknown 01/05/2025 6:15 AM EST 01/05/2025 6:54 AM EST us Estate Samir RAMIREZ LAB BLOOD ORDERABLES Final R esult [facility] [address] [place] [address], * (ABNORMAL) Basic metabolic panel (01/05/2025 6:15 AM EST) Only the most recent of2 resultswithin the time period is included. Sodium 140 133 - 145 mmol/L LAB CHEMISTRY METHOD 01/05/2025 7:[address] [facility] Potassium 3.8 3.5 - 5.5 mmol/L LAB CHEMISTRY METHOD 01/05/2025 7:[address] [facility] Chloride 106 96 - 110 mmol/L LAB CHEMISTRY METHOD 01/05/2025 7:[address] [facility] CO2 27 21 - 32 mmol/L LAB CHEMISTRY METHOD 01/05/2025 7:[address] [facility] Anion Gap 7 3 - 11 LAB CHEMISTRY METHOD 01/05/2025 7:[address] [facility] Glucose 124(H) 70 - 100 mg/dL LAB CHEMISTRY METHOD 01/05/2025 7:[address] [facility] BUN 25 5 - 25 mg/dL LAB CHEMISTRY METHOD 01/05/2025 7:[address] [facility] Creatinine 1.25 0.70 - 1.30 mg/dL LAB CHEMISTRY METHOD 01/05/2025 7:[address] [facility] eGFR 62 >=60 mL/min/1. 73m2 LAB CHEMISTRY METHOD 01/05/2025 7:[address] [facility] Comment:Calculation based on the??Chronic Kidney Disease Epidemiology Collaboration (CKD-EPI) equation refit??without adjustment for race. BUN/Creatinine Ratio 20.0 LAB CHEMISTRY METHOD 01/05/2025 7:[address] [facility] Calcium 9.9 8.5 - 10.5 mg/dL LAB CHEMISTRY METHOD 01/05/2025 7:[address] [facility] Blood Venous blood specimen / Unknown Venipuncture / Unknown 01/05/2025 6:15 AM EST 01/05/2025 6:54 AM EST Mannie Dawson MD LAB BLOOD ORDERABLES Final R esult Performing Organization Address [facility]/ZIP Co de Phone Number [facility] [address] [place] [address], [place] [phone] * Sedimentation rate (01/04/2025 6:10 AM EST) Pathologist [facility] Sed Rate 13 0 - 20 mm/hr LAB HEMETOLOGY METHOD 01/04/2025 7:09 AM EST [facility] Blood Venous blood specimen / Unknown Venipuncture / Unknown 01/04/2025 6:10 AM EST 01/04/2025 6:22 AM EST Vickie WILLS LAB BLOOD ORDERABLES Final Resu lt Performing Organization Address [facility] Co de Phone Number [facility] [address] [place] [address], [place] [phone] * (ABNORMAL) C-reactive protein (01/04/2025 6:10 AM EST) Pathologist [facility] C-Reactive Protein 0.63(H) <=0.50 mg/dL LAB CHEMISTRY METHOD 01/04/2025 7:04 AM EST [facility] Blood Venous blood specimen / Unknown Venipuncture / Unknown 01/04/2025 6:10 AM EST 01/04/2025 6:24 AM EST Vickie WILLS LAB BLOOD ORDERABLES Final Resu lt Performing Organization Address [facility]/ZIP Co de Phone Number [facility] [address] [place] [address], [place] [phone] * XR Chest 1 View (01/03/2025 9:36 PM EST) Anatomical Region Laterality Modality Body Radiographic Nikia ging 01/04/2025 8:40 AM EST Impressions 01/04/2025 8:41 AM EST Impression: No active pulmonary process identified. Teletaryn WILLS ([id number]) -------- FINAL REPORT -------- Dictated By: Kalie Walker Dictated Date: 01/04/2025 08:40 ET Assigned Physician: Kalie Walker Reviewed and Electronically Signed By: Kalie Walker Signed Date: 01/04/2025 08:41 ET Workstation ID: [id number] Transcribed By: Self Edit Transcribed Date: 01/04/2025 [...] IMPRESSION: Impression: No active pulmonary process identified. Teletaryn WILLS ([id number]) -------- FINAL REPORT -------- Dictated By: Kalie Walker Dictated Date: 01/04/2025 08:40 ET Assigned Physician: Kalie Walker Reviewed and Electronically Signed By: Kalie Walker Signed Date: 01/04/2025 08:41 ET Workstation ID: [id number] Transcribed By: Self Edit Transcribed Date: 01/04/2025 08:40 ET Vickie WILLS IMG XR PROCEDURES Final Result from Last 3 Months Insurance MEDICAID [facility] MEDICARE Advance Directives Documents on File Type Date Recorded Patient Registered Health Nurse Expl anation Advance Directives and Living Will 01/05/2025 2:46 PM David No [facility] Care Pro xy * Full Code - Confirmed (Latest Code Status on File) Date Activated Date Inactivated Comments 01/03/2025 10:14 PM 01/05/2025 4:49 PM This code sta tus was ascertained in the following way: Code status discussion: discussion with patient To update the patient's code status, place a code status order. Do not modify or discontinue any currently active code status orders. * Full Code - Default Date Activated Date Inactivated Comments 01/03/2025 7:35 PM 01/03/2025 10:14 PM This is order is used when code status has not been discussed with the patient, or code status is otherwise unknown/unconfirmed To update the patient's code status, place a code status order. Do not modify or discontinue any currently active code status orders. Healthcare Agents on File Name Relationship Healthcare Agent Relationsnd p Communication David No Brother Health Care Agent Ana No Relative First Alternate Health Care Agent Care Teams Classification Control Clerk Relationship Specialty Start Date End Date Lor Jeffrey MD [address] [place] [address] PCP - General 07/27/24
--- OUTSIDE RECORDS SUMMARY | 2025-01-20 12:02 | XMS_ITS | Encounter Summary ---
Author Organization [employer] Address [address] [facility] [address] [place] [address] Care Team Providers Care Molder Vacuum Name Role Phone Unavailable Primary Care Provider Unavailabl e Encounter Details Date Type Department Care Team (Latest Contact Info) Description 10/12/2019 Abstract [facility] CONVERSIONS Dental, Provider, DDS Social [...] Description 03/24/2025 1:00 PM EDT Office Visit [facility] ADULT DENTAL [address] [place] [address] Ara Melendrez [address] [place] [address] documented as of this encounter Visit Diagnoses Not on filedocumented in this encounter
--- OUTSIDE RECORDS SUMMARY | 2025-01-20 12:02 | XMS_ITS | Encounter Summary ---
Author Organization [employer] Address [address] [facility] [address] [place] [address] Care Team Providers Care Correctional Agency Director Name Role Phone Unavailable Primary Care Provider Unavailabl e Encounter Details Date Type Department Care Team (Latest Contact Info) Description 04/10/2021 Abstract [facility] CONVERSIONS Dental, Provider, DDS Social History [...] Description 03/24/2025 1:00 PM EDT Office Visit [facility] ADULT DENTAL [address] [place] [address] Niko Melendrezaris [address] [place] [address] documented as of this encounter Visit Diagnoses Not on filedocumented in this encounter
[2025-01-20 13:22] LABS: MANUAL DIFF FLAG NO
[2025-01-20 13:26] LABS: Basophils Absolute Auto 0.1 X10*3/uL (0.0-0.2); Basophils Percent Auto 1.4 % (0-2); Eosinophils Absolute Auto 0.1 X10*3/uL (0.0-0.4); Eosinophils Percent Auto 1.4 % (0-4); Hematocrit 40.2 % (42.0-52.0); Hemoglobin 13.7 g/dl (14.0-18.0); Imm Gran Abs Auto 0.03 X10*3/uL (0.00-0.03); Imm Gran Pct Auto 0.5 % (0.0-0.4); Lymphocytes Absolute Auto 1.6 X10*3/uL (1.2-4.9); Lymphocytes Percent Auto 29.4 % (20-40); Mean Corpuscular HGB Conc 34.1 g/dl (31.0-36.0); Mean Corpuscular Hemoglobin 28.8 pg (27.0-33.0); Mean Corpuscular Volume 84.6 fL (80.0-98.0); Mean Platelet Volume 10.4 fL (9.4-12.4); Monocytes Absolute Auto 0.5 X10*3/uL (0.1-1.2); Monocytes Percent Auto 9.7 % (2-11); Neutrophils Absolute Auto 3.2 x10*3/uL (2.0-8.3); Neutrophils Percent Auto 57.6 % (45-73); Platelet Count 236 X10*3/uL (160-400); Red Blood Count 4.75 X10*6/uL (4.60-5.80); Red Cell Distribution Width 12.6 % (11.0-16.0); White Blood Count 5.6 X10*3/uL (4.8-10.8)
[2025-01-20 14:06] LABS: Alanine Aminotransferase 30 U/L (0-40); Alkaline Phosphatase 57 U/L (39-117); Amylase 89 U/L (28-100); Anion Gap 11 (12-20); Aspartate Amino Transferase 23 U/L (5-37); Bilirubin Total 0.5 mg/dL (0.0-1.0); Blood Urea Nitrogen 20 mg/dL (9-16); Calcium 9.5 mg/dL (8.4-10.2); Carbon Dioxide 25 mmol/L (22-29); Chloride 107 mmol/L (96-108); Estimated Glomerular Filt Rate > 60; Glucose Random 120 mg/dL (60-115); Potassium 3.9 mmol/L (3.3-5.1); Sodium 139 mmol/L (135-145); Total Protein 7.2 g/dL (6.5-8.0)
[2025-01-20 14:15] LABS: Valproate 53.1 mcg/mL (50.0-100.0)
== END 2025-01-20 10:55 | disposition home or self-care (01) ==
LOC: HO.HMGCLDS 10:54
PROVIDERS: PCP Internal Medicine; Visit Provider Clinical Nurse Specialist Psychiatric/Mental Health
DX: F31.9 Bipolar disorder, unspecified (principal)
CPT/HCPCS: 36415; 80053; 80164; 82150; 85025

== ENCOUNTER 2025-07-28 09:53 | Outpatient (REF) | payer MEDICARE, MEDICAID, SELFPAY ==
--- OUTSIDE RECORDS SUMMARY | 2024-08-02 07:10 | XMS_ITS ---
Author Organization [facility] Address [address] [place] [phone] Care Team Providers Care Sales And Management Trainee Name Role Phone Lor Jeffrey MD Primary Care Provider Javier Donato Jr REASON FOR VISIT screening Encounters Encounter Location Date Provider Diagnosis [facility] Outpatient [address] [place], [place] [phone] 08/02/2024 Javier Lee Jr Colon cancer screening Z12.11 and Colon polyps K63.5 Assessments Encounter Date Diagnosis (ICD Code) Assessment Notes Treatment Notes Treatment Clinical Notes Section Notes 08/02/2024 Colon cancer screening (ICD-10 - Z12.11) 08/02/2024 Colon polyps (ICD-10 - K63.5) Plan Of Treatment No Information Progress Notes * BART RUVALCABADOB:[birth year] (70 yo M)Acc No.[id number]:08/02/2024 COLON WITH MAC Patient: Aspen VERASBART Provider: Lazaro Lee MD :1955 A ge:69 Y S ex:Male Date:08/02/2024 Address:[address], [id number] Pcp:Lor Jeffrey MD Subjective: * Chief Complaints: * 1 . Screening. * Medical History: Objective: * Vitals: Assessment: * Assessment: 1. C olon cancer screening - Z12.11 (Primary) 2 . C olon polyps - K63.5? Plan: * Treatment: * Procedure Codes: G 0105 COLOREC CANCR SCR; COLNSCPY HI RISK, [address] LESION REMOVAL COLONOSCOPY * * The named appointment provid er may or may not be the originator of this progress note, and it is not deemed complete until electronically signed by the appointment provider. Sign off status: Pending * Provider: Lazaro Lee MD Date: 0 08/02/2024 Generated for Brandi loomis/Margot/Carmenitting on: 0 07/28/2025 10:40 AM EDT
--- OUTSIDE RECORDS SUMMARY | 2025-07-28 10:41 | XMS_ITS | Encounter Summary ---
Author Organization [employer] Address [address] [facility] [address] [place] [address] Care Team Providers Care Card Setter Name Role Phone Unavailable Primary Care Provider Unavailabl e Encounter Details Date Type Department Care Team (Latest Contact Info) Description 06/09/2022 Abstract [facility] CONVERSIONS Dental, Provider, DDS Social History [...] Care Team (Late st Contact Info) Description 10/13/2025 1:00 PM EST Office Visit [facility] ADULT DENTAL [address] [place] [address] Niko Melendrezaris [address] [place] [address] documented as of this encounter Visit Diagnoses Not on filedocumented in this encounter
--- OUTSIDE RECORDS SUMMARY | 2025-07-28 10:41 | XMS_ITS | Encounter Summary ---
Author Organization [employer] Address [address] [facility] [address] [place] [address] Care Team Providers Care Security Flex Utility Officer Name Role Phone Unavailable Primary Care Provider Unavailabl e Encounter Details Date Type Department Care Team (Latest Contact Info) Description 04/10/2021 Abstract [facility] CONVERSIONS Dental, Provider, DDS Social History [...] Description 10/13/2025 1:00 PM EST Office Visit [facility] ADULT DENTAL [address] [place] [address] Niko Melendrezaris [address] [place] [address] documented as of this encounter Visit Diagnoses Not on filedocumented in this encounter
--- OUTSIDE RECORDS SUMMARY | 2025-07-28 10:41 | XMS_ITS | Clinical Summary ---
Author Organization [employer] Address [address] [place] [address] Care Team Providers Care Tactical Air Defense Controller Name Role Phone Unavailable Primary Care Provider Unavailabl e Allergies No known active allergies Medications atorvastatin (Lipitor) 10 MG tablet Take 1 tablet by mouth at bed time. Active benztropine (Cogentin) 0.5 MG tablet Take 0.5 mg by mouth 2 times daily. 03/13/2023 Active cholecalciferol (Vitamin D-3) 50 MCG (1999 UT) capsule Take by mouth in the morning. [...] teeth, acquired 05/23/2024 Crowded teeth 03/31/2023 Dental plaque 03/31/2023 Periodontal disease 03/31/2023 Social History Tobacco Use Types Packs/Day Years [...] Sign Reading Time Taken Comments Blood Pressure 132/78 03/24/2025 1:10 PM EDT Pulse 80 07/27/2024 12:58 PM EDT Temperature - - Respiratory Rate - - Oxygen Saturation - - Inhaled Oxygen Concentration - - Weight - - Height - - Body Mass Index - - Plan of Treatment Upcoming Encounters Date Type Department Care Team (Late st Contact Info) Description 10/13/2025 1:00 PM EST Office Visit [facility] ADULT DENTAL [address], [place] [phone] Aneesh, Ara [address] [place] [address] Health Maintenance Due Date Last Done Comments CT Colonography 1954 Colonoscopy 1954 Colorectal Cancer Screening 1954 Depression Screening 1954 FIT DNA/Cologuard 1954 FIT 1954 FOBT 1954 Lipid Panel 1954 SDOH Screening 1954 Sigmoidoscopy 1954 Alcohol/Substance Use Screening 1966 Hepatitis C Screening 1972 DTaP/Tdap/Td Vaccines (1 - Tdap) 1973 COVID-19 Vaccine ( season) 2025 08/04/2024, 08/18/2023, 08/14/2022, Additional history exists Influenza Vaccine (#1) 2025 , 07/23/2023, 08/01/2022, Additional history exists Dental Oral Exam 09/24/2025 03/24/2025, , 03/31/2023 Dental Prophylaxis 09/24/2025 03/24/2025, 0 05/23/2024, 03/31/2023 Tobacco Screening 03/24/2026 03/24/2025 Dental X-Ray: Bitewings 03/25/2026 03/24/20, 05/23/2024, 06/09/2022 Dental X-Ray: Full Mouth 05/24/2027 05/23/2024, 03/30 RSV Patients and Patients Aged 60 years or older (1 - 1-dose 75+ series) 2029 Zoster Vaccines Completed 10/25/2018, 12/2017, 12/05/2014, Additional history exists Pneumococcal Vaccine: 50+ Years Completed 08/02/2020, 08/02/2019, 08/01/2013 HIB Vaccines Aged Out No longer eligi [...] age to complete this topic Meningococcal B Vaccine Aged Out No l onger eligible based on patient's age to complete [...] Procedure Name Priority Date/Time Associated Diagnosis Comments PROPHYLAXIS - ADULT Routine 03/24/2025 1 :00 PM EDT Normal oral exam Dental plaque BITEWINGS - 4 RADIOGRAPHIC IMAGES Routine 03/24/2025 1:00 PM EDT Normal oral exam Dental plaque PERIODIC ORAL EVALUATION - ESTABLISHED PATIENT Routine 03/24/2025 1:00 PM EDT INTRAORAL - COMPLETE SERIES OF RADIOGRAPHIC IMAGES Routine 05/23/2024 3:00 PM EDT Dental plaque Dental calculus Crowded teeth Missing teeth, acquired from Last 3 Months or Most Recently Relevant to Health Maintenance Insurance [facility] MEDICAID STAND ADULT
--- OUTSIDE RECORDS SUMMARY | 2025-07-28 10:41 | XMS_ITS | Clinical Summary ---
Author Organization [address] [facility] Address [address] [place] [address] Phone Care Team Providers Care Aniline Press Worker Name Role Phone Lor Jeffrey MD Primary Care Provider [phone] Allergies No known active allergies Medications clotrimazole [...] mouth 1 (one) time each day. 03/07/2024 Active Active Problems Problem Noted Date Diagnosed [...] 02/25/2012 DX:Mixed hy perlipidemia Bipolar 2 disorder ([facility] V24, [facility] V28) Family History Medical History Relation Name Comments [...] 64 01/05/2025 11:21 AM EST Temperature 37.3 C (99.2 F) 01/05/2025 11:21 AM EST Respiratory Rate 16 01/05/2025 11:21 AM EST Oxygen Saturation 95% 01/05/2025 11:21 AM EST Inhaled Oxygen Concentration - - Weight 99.8 kg (220 lb) 02/14/2025 1:42 PM EDT Height 180 cm (5' 10.87 ) 02/14/2025 1:42 PM EDT Body Mass Index 30.8 02/14/2025 1:42 PM EDT Plan of Treatment Upcoming Encounters Date Type Department Care Team (Late st Contact Info) Description 08/15/2025 1:15 PM EDT Office Visit Orthopedic Surgery - [place] [address] [place] [phone] Pito Lagos, DPM [address] [facility] [address] [place] [address] Health Maintenance Due Date Last Done Comments DTaP,Tdap,and Td Vaccines (1 - Tdap) 1973 Cholesterol Screening (Lipid Panel) 09/16/2024 Colorectal Cancer Screening: Colonoscopy 09/16/2024 Hepatitis C Screening 09/16/2024 Medicare Annual Wellness Visit 09/16/2024 Social Influencers of Health Screening 09/16/2024 Depression Screening 11/30/2024 COVID-19 Vaccine ( season) 2025 08/04/2024, 08/18/2023, 08/14/2022, Additional history exists Influenza Vaccine (#1) 2025 , 07/23/2023, 08/01/2022, Additional history exists Falls Risk Assessment 01/05/2026 01/05/2025 Hypertension/CHF/CAD Annual BMP Blood Test 01/05/2026 01/05/2025, 01/04/2025 RSV Immunization Adult Patients (1 - 1-dose 75+ series) 2029 Zoster [...] Procedure Name Priority Date/Time Associated Diagnosis Comments BASIC METABOLIC PANEL Routine 01/05/2025 6:15 AM EST from Last 3 Months or Most Recently Relevant to Health Maintenance Results * (ABNORMAL) Basic metabolic panel (01/05/2025 6:15 AM EST) Sodium 140 133 - 145 mmol/L LAB CHEMISTRY METHOD 01/05/2025 7:38 AM [facility] Potassium 3.8 3.5 - 5.5 mmol/L LAB CHEMISTRY METHOD 01/05/2025 7:38 AM [facility] Chloride 106 96 - 110 mmol/L LAB CHEMISTRY METHOD 01/05/2025 7:38 AM [facility] CO2 27 21 - 32 mmol/L LAB CHEMISTRY METHOD 01/05/2025 7:38 AM [facility] Anion Gap 7 3 - 11 LAB CHEMISTRY METHOD 01/05/2025 7:38 AM [facility] Glucose 124(H) 70 - 100 mg/dL LAB CHEMISTRY METHOD 01/05/2025 7:38 AM [facility] BUN 25 5 - 25 mg/dL LAB CHEMISTRY METHOD 01/05/2025 7:38 AM [facility] Creatinine 1.25 0.70 - 1.30 mg/dL LAB CHEMISTRY METHOD 01/05/2025 7:38 AM [facility] eGFR 62 >=60 mL/min/1. 73m2 LAB CHEMISTRY METHOD 01/05/2025 7:38 AM [facility] Comment:Calculation based on the Chronic Kidney Disease Epidemiology Collaboration (CKD-EPI) equation refit without adjustment for race. BUN/Creatinine Ratio 20.0 LAB CHEMISTRY METHOD 01/05/2025 7:38 AM [facility] Calcium 9.9 8.5 - 10.5 mg/dL LAB CHEMISTRY METHOD 01/05/2025 7:38 AM EST [facility] Blood Venous blood specimen / Unknown Venipuncture / Unknown 01/05/2025 6:15 AM EST 01/05/2025 6:54 AM EST us Mannie Dawson MD LAB BLOOD ORDERABLES Final R esult [facility] [address] [place] [address], from Last 3 Months or Most Recently Relevant to Health Maintenance Insurance [place]ID - [place] Member Subscriber Plan / Payer ( fective 2024-Present) Name:GATO RUVALCABA Relation to Subscriber:Self Name:Gato Ruvalcaba Payer ID:[id number] Group ID:Not on file Type:Not on file Address: [facility] ATTN:[facility] 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
--- OUTSIDE RECORDS SUMMARY | 2025-07-28 10:41 | XMS_ITS | Patient Health Record ---
Author Organization [facility] Address [address] [place] [address] Care Team Providers Care Methods Analyst Name Role Phone Lor Jeffrey MD Primary Care Provider Javier Donato Jr Unavailable Allergies No Known Allergies Results Component Value Reference Range Notes Pathology Reviewed date:08/10/2024 08:38:39 AM Interpretation: Performing Lab:[facility], [address] [place] [phone] Notes/Report: Reason For Referral No Information Medications Medication SIG (Take, Route, Frequency, Duration) Notes [...] 2 MG TAKE 2 TABLETS BY MO [facility] EVERY DAY AT BEDTIME Oral for 90 Active Finasteride 5 MG TAKE 1 TABLET BY GRANT DAILY FOR 90 DAYS Oral for 90 Active Depakote 500 MG as directed Orally e very day Active Tamsulosin HCl 0.4 MG 1 capsule Orally O nce a day for 30 day(s) Active Benztropine Mesylate 0.5 MG Oral for 90 Active Divalproex Sodium ER 500 MG Oral for 90 Active Haldol 5 MG/ML 0.3 ml as needed Injection Twice a day Active Immunizations Vaccine Route Administration Date Status Comme nts Influenza Unknown 09/22/2018 Administered Influenza Unknown 10/20/2023 Administered Social History Alcohol Screen Question Answer Notes Did you have a drink containing alcohol in the p ast year? No Points 0 Interpretation Negative Problems Problem Type SNOMED Code ICD Code Onset Dates Problem Status W/U Status Risk Notes Problem [id number] Colon cancer screening (Z12.11) Active confirmed Problem 394265811 Long-term use of aspirin therapy (Z79.82) Active confirmed Encounters Encounter Location Date Provider Diagnosis [facility] Outpatient [address] [place], [place] [phone] 08/02/2024 Javier Lee Jr Colon cancer screening Z12.11 and Colon polyps K63.5 [facility] [address] [place] [address] 08/10/2024 Javier Lee Jr Assessments Encounter Date Diagnosis (ICD Code) Assessment Notes Treatment Notes Treatment Clinical Notes Section Notes 08/02/2024 Colon cancer screening (ICD-10 - Z12.11) 08/02/2024 Colon polyps (ICD-10 - K63.5) Plan Of Treatment Future Test Test Name Order Date COLONOSCOPY 06/11/2012 COLONOSCOPY 06/30/2013 COLONOSCOPY 01/05/2019 COLONOSCOPY 06/30/2024 Insurance Providers Payer Name Payer Address Payer Phone Subscriber Number Group Number Insured Name Patient Relationship to Insured Coverage Start Date Coverage End Date MEDICARE OF [place] [address] [place] [address] [id number] BART RUVALCABA Self - patient is the insured MEDICAID OF [facility] [address] [place] [address] [id number] BART RUVALCABA Self - patient is the insured Medical (General) History Medical History History ICD Code colonoscopy 2019 tubular adenomas x2 fiv e year recall hypertension chest pain with neg. cardiac workup bipplar disorder elevated cholesterol cataract surgery in both eyes 02/2024- Surgical History Surgery Date(Month/Year) hernia repair both eyes cataract surgery in february and march 2024
--- OUTSIDE RECORDS SUMMARY | 2025-07-28 10:41 | XMS_ITS | Encounter Summary ---
Author Organization [employer] Address [address] [place] [address] Care Team Providers Care Director Product Management Name Role Phone Unavailable Primary Care Provider Unavailabl e Encounter Details Date Type Department Care Team (Latest Contact Info) Description 10/12/2019 Abstract [facility] CONVERSIONS Dental, Provider, DDS Social History [...] Description 10/13/2025 1:00 PM EST Office Visit [facility] ADULT DENTAL [address] [place] [address] Aneesh Ara [address] [place] [address] documented as of this encounter Visit Diagnoses Not on filedocumented in this encounter
[2025-07-28 13:34] LABS: MANUAL DIFF FLAG NO
[2025-07-28 13:37] LABS: Hematocrit 43.1 % (42.0-52.0); Hemoglobin 14.6 g/dl (14.0-18.0); Imm Gran Abs Auto 0.01 X10*3/uL (0.00-0.03); Imm Gran Pct Auto 0.2 % (0.0-0.4); Lymphocytes Absolute Auto 2.1 X10*3/uL (1.2-4.9); Mean Corpuscular HGB Conc 33.9 g/dl (31.0-36.0); Mean Corpuscular Hemoglobin 28.6 pg (27.0-33.0); Mean Corpuscular Volume 84.5 fL (80.0-98.0); NRBC Abs Auto 0.000 X10*3/uL (0.0-0.012); NRBC Pct Auto 0.0 /100WBC (0.0-0.2); Platelet Count 213 X10*3/uL (160-400); Red Blood Count 5.10 X10*6/uL (4.60-5.80); White Blood Count 5.8 X10*3/uL (4.8-10.8)
[2025-07-28 13:53] LABS: Appearance Urine Cloudy; Glucose Urine UA Negative (Negative); PH 6.0 (5.0-9.0); Specific Gravity - Urine 1.010 (1.005-1.025)
[2025-07-28 13:58] LABS: Alanine Aminotransferase 21 U/L (0-40); Albumin Level 4.5 g/dL (3.5-5.0); Alkaline Phosphatase 57 U/L (39-117); Anion Gap 15 (12-20); Aspartate Amino Transferase 26 U/L (5-37); Blood Urea Nitrogen 16 mg/dL (9-16); Calcium 9.5 mg/dL (8.4-10.2); Carbon Dioxide 26 mmol/L (22-29); Chloride 106 mmol/L (96-108); Cholesterol 162 mg/dL (<200); Estimated Glomerular Filt Rate 58; HDL Cholesterol 45 mg/dL (>40); Potassium 4.0 mmol/L (3.3-5.1); Sodium 143 mmol/L (135-145); Total Protein 7.1 g/dL (6.5-8.0); Triglycerides 99 mg/dL (<150)
== END 2025-07-28 09:54 | disposition home or self-care (01) ==
LOC: HO.HMGCLDS 09:53
PROVIDERS: PCP Internal Medicine; Visit Provider Internal Medicine
DX: Z00.00 Encounter for general adult medical examination without abnormal findings (principal); I10 Essential (primary) hypertension; E78.5 Hyperlipidemia, unspecified
CPT/HCPCS: 36415; 80053; 80061; 81001; 85025

== ENCOUNTER 2025-08-17 13:20 | Outpatient (AMB) | payer MEDICARE, MEDICAID, SELFPAY ==
--- OUTSIDE RECORDS SUMMARY | 2025-08-15 13:15 | XMS_ITS | Encounter Summary ---
Author Organization [facility] Address [address] [place] [phone] Care Team Providers Care Sky Diver Name Role Phone Lor Jeffrey MD Primary Care Provider [phone] Reason for Visit * Reason Comments Foot Pain Ingrown toe nail Encounter Details Date Type Department Care Team (Late st Contact Info) Description 08/15/2025 1:15 PM EDT Office Visit Orthopedic Surgery - [place] [address] [phone] Pito Lagos DPM [address] [phone] Ingrowing nail (Primary Dx); Dermatophytosis of nail; Pain in toe of left foot; Pain in toe of right foot; Bilateral femoral artery stenosis (CMS/HCC V24); Hammer toe of left foot; Acquired hammer toe of right foot Social History Tobacco Use Types Packs/Day Years [...] on file documented as of this encounter Progress Notes * Pito Lagos DPM - 08/15/2025 1:15 PM EDT S Patient presented with severe pain and discomfort of all of his toenails and skin is his nails elongated painful thickened he is to fully take care of them to think his pain and discomfort states that he occasionally tries to cut them straight across his difficulty doing so notes a past medical history listed below denies numbness burning or tingling to his feet does not occasionally his nails gets elongated painful thickened ingrown to his skin states he was last seen several months ago he states the nails have grown to the skin and become more painful and achy recently he called for an appointment reports they have become more embedded toenails have associated worsening contracture of hisdigits they have been curling down ROS: GENERAL: Pt denies nausea, fever, vomiting, chills, or shortness of breath. Pt in NAD. CARDIOLOGY: pt denies chest pain, palpitations LUNGS: pt denies shortness of breath MUSCULOSKELETAL: See HPI, otherwise no joint pain or swelling, back pain, or muscle pain. SKIN: see HPI, otherwise no lesions, rash or itching NEURO: No persistent headache, weakness or numbness The remainder of the review of systems is noncontributory PAST MEDICAL HISTORY: Patient Active Problem List Diagnosis Code Psychiatric disorder F99 Hypertension I10 Borderline diabetes R73.03 Mixed hyperlipidemia E78.2 SOCIAL HISTORY: Social History Tobacco Use Smoking status: Never Smokeless tobacco: Not on file Substance Use Topics Alcohol use: Not on file History Last Reviewed by Janiya Rendon, ADRIANA,MECHANICAL DRAFTER on 02/25/2012 at 5:24 PM Sections Reviewed Tobacco ACTIVE MEDICATIONS: Current Outpatient Medications Medication Sig Dispense Refill clotrimazole (LOTRIMIN) 1 % cream Apply to skin and toenails daily for 12 weeks 45 g 3 haloperidol (HALDOL) 2 MG tablet Take 2 mg by mouth daily. divalproex (DEPAKOTE) 500 MG EC tablet Take 500 mg by mouth 2 times daily. Cholecalciferol (VITAMIN D) 1000 UNIT CAPS Take by mouth. lisinopril-hydrochlorothiazide (PRINZIDE,ZESTORETIC) 20-12.5 MG per tablet Take 1 tablet by mouth daily. aspirin (SB LOW DOSE ASA EC) 81 MG EC tablet Take 81 mg by mouth daily. No current facility-administered medications for this visit. ALLERGIES: Patient has no known allergies. PHYSICAL EXAM: Height 5' 11 (1.803 m), weight 221 lb 12.8 oz (100.6 kg). Estimated body mass index is 30.93 kg/m?? as calculated from the following: Height as of this encounter: 5' 11 (1.803 m). Weight as of this encounter: 221 lb 12.8 oz (100.6 kg). BMI PLAN PODIATRIC EXAMINATION: GENERAL: Patient appears well nourished, with NAD. VASCULAR: Dorsalis pedis pulses are 1/4 bilaterally and Posterior tibial pulses are 1/4 bilaterally. Capillary filling time within normal limits the digits. No pallor on elevation or rubor on dependency. Positive hair growth. No varicosities. Denies rest pain or claudication pain. NEUROLOGICAL: Sharp/dull sensation intact, protective sensation intact 10/10 with 5.07 semmes yaima bilaterally, vibratory sensation with tuning fork intact to the tibial tuberosity. ORTHOPEDIC: Good muscle strength 5/5 of all flexors and extensors. Dorsi flexion of ankle ,10 degrees, plantar flexion WNL. No muscle atrophy. DERMATOLOGICAL:.Nails are elongated painful and thickened with abnormal curvature of all 10 toenails some diffuse dryness of the skin noted Toenails: Left Toenail(s) 1-5: subungual debris, discoloration, hypertrophic, elongation, mycotic appearance, onychomycosis, pain and thickening. Right Toenail(s) 1-5: subungual debris, discoloration, hypertrophic, elongation, mycotic appearance, onychomycosis, pain and thickening. Annular scaling bilateral feet moccasin distribution Skin thinning texture shiny appearance diffuse hyperpigmentation bilaterally pedal hair decreased BIOMECHANICS: STJ ROM wnl, MTJ ROM wnl, 1st MPJ ROM wnl. hammertoe contractures 2 through 5 bilateral semireducible IMAGING: IMPRESSION: 1. Ingrowing nail 2. Dermatophytosis of nail PLAN: Pt was seen and examined, history reviewed. Hammertoe contractures 2 through 5 discussed and reviewed recommend continue with accommodative shoe gear discussed slow progression of hammertoe contracture secondary to sarcopenia as part of the aging process Lotrimin continue with previously prescribed applied to both nails and skin Treatment options for chronic recurring ingrown nails were discussed reviewed specific to removal of nail plate permanently versus continue to cut the nail straight across soaks Did discussed with patient that if we treat the fungus aggressively may resolve his abnormal curvature due to nail thickening and buildup can cause abnormal curvature of the nail plate Surgical options for embedded toenails were discussed and reviewed including nail with matrixectomyas well as unobstructive procedures and removal patient states he like to think about these optionshe does have increased risk of nonhealing delayed healing and infection Follow-up in 3 months Debridement of mycotic toenails 6-10: Verbal informed consent was obtained from the patient. Greater than 6 nails were aseptically debrided in thickness and length with nail nippers Pito Lagos DPM documented in this encounter Plan of Treatment Upcoming Encounters Date Type Department Care Team (Late st Contact Info) Description 02/12/2026 1:15 PM EDT Office Visit Orthopedic Surgery - [place] [address] [phone] Pito Lagos DPM [address] [phone] documented as of this encounter Visit Diagnoses Diagnosis Ingrowing nail- Primary Dermatophytosis of nail Pain in toe of left foot Pain in soft tissues of limb Pain in toe of right foot Pain in soft tissues of limb Bilateral femoral artery stenosis (CMS/HCC V24) Stricture of artery Hammer toe of left foot Acquired hammer toe of right foot documented in this encounter Care Teams Sky Diver Relationship Specialty Start Date End Date Lor Jeffrey MD [address] [place] [phone] PCP - General 07/27/24 documented as of this encounter
--- NOTE | 2025-08-17 13:26 | MHC.PC.OV ---
Vital Signs 08/17/25 13:41 Height 5 ft 11 in Weight 224 lb BMI 31.2 BP 120/70 Blood Pressure Location Lt brachial Position Sitting Respiration 18 Pulse 54 Pulse Source Pulse Oximeter Temp 98.0 F Temp Source Oral Pulse Oximetry (%) 95 Oxygen Delivery Method Room Air Intake Visit Reasons: Annual physical Intake Note: Pt is here today for PE. Allergies No Known Allergies Allergy (Mild, Verified 08/17/25 13:43) NONE Medication List - Last Reconciled 08/17/25 by Lor Jeffrey MD aspirin 81 mg PO DAILY atorvastatin 10 mg PO DAILY benztropine 0.5 mg PO BID cholecalciferol (vitamin D3) 50 mcg PO DAILY divalproex ER (Depakote ER) 500 mg PO BID finasteride 5 mg PO DAILY haloperidol 4 mg PO BEDTIME lisinopril-hydrochlorothiazide 20-12.5 mg 1 tab PO DAILY tamsulosin (Flomax) 0.8 mg (2 x 0.4 mg) PO BEDTIME 90 days Tobacco use date assessed: 08/17/25 Fall risk assessment: No Falls in past year Last assessed Fall Risk: 08/17/25 Dental Screening Dental Screen Date: 08/17/25 Did you have a dental visit in the last 12 months?: Yes Did you have a dental problem in the last 6 months where you did not have access to dental care?: No Was dental information given to patient?: Patient has dentist HPI Annual physical HPI Details Pt presents for PE. [facility] Medical History Elevated cholesterol Bipolar 1 disorder Chest pain Normal colonoscopy Depression Hyperlipidemia HTN (hypertension) Annual physical exam Surgical History Hx of bilateral cataract extraction History of colonoscopy History of inguinal hernia repair Family History Father Gastritis Mother Cardiac disease Diabetes mellitus Brother No problems noted. Brother No problems noted. Sister No problems noted. Sister No problems noted. Social History Housing: House Patient Tobacco Use Status: Never used Tobacco e-Cigarette/Vaping Use: Never Used service: No Current occupational status: retired Cognitive needs: No Hearing needs: No Vision needs: Yes Questionnaire PHQ-9 Over the last 2 weeks, how often have you been bothered by any of the following problems? 1. Little interest or pleasure in doing things: not at all 2. Feeling down, depressed, or hopeless: not at all 3. Trouble falling or staying asleep, or sleeping too much: not at all 4. Feeling tired or having little energy: not at all 5. Poor appetite or overeating: not at all 6. Feeling bad about yourself - or that you are a failure or have let yourself or your family down: not at all 7. Trouble concentrating on things, such as reading the newspaper or watching television: not at all 8. Moving or speaking so slowly that other people could have noticed. Or the opposite - being so fidgety or restless that you have been moving around a lot more than usual: not at all 9. Thoughts that you would be better off or of hurting yourself in some way: not at all Total score: 0 Depression Screening Interpretation: Negative Depression Screening Done: Yes 73701 - PHQ-9 Billing: Yes Source: Developed by Drs. Kulwant Whaley, Claudia Juarez, José Luis Donahue and colleagues, with an educational marisela from [employer] ([employer]). Thrive Questionnaire Date Thrive assessed: 08/17/25 I am a: Patient What is your living situation today?: I have a steady place to live Within the past 12 months, did the food you bought not last and you didn't have the money to get more?: Never true Within the past 12 months, did you worry whether your food would run out before you got money to buy more?: Never true Do you have trouble paying for medicines?: No Do you have trouble getting transportation to medical appointments?: No Do you have trouble paying your heating and electricity bill?: No Do you have trouble taking care of your child, family member or friend?: No Do you have trouble with day-to-day activities such as bathing, preparing meals, shopping, managing finances, etc.?: No Are you currently unemployed and looking for a job?: No Are you interested in more education?: No Please select the resources that you would like help with: None Currently or been in a relationship where the following occur: No concerns reported THRIVE Score: 0 AUDIT C Alcohol Use Questionnaire (AUDIT-C) 1. How often do you have a drink containing alcohol?: Never 3. How often do you have six or more drinks on one occasion?: Never Total Score: 0 DALTON-7 AMB Questionnaire DALTON-7 Date DALTON - 7 assessed: 08/17/25 Feeling nervous, anxious, or on edge: 0 = Not at all Not being able to stop or control worryin = Not at all Worrying too much about different things: 0 = Not at all Trouble relaxin = Not at all Being so restless that it is hard to sit still: 0 = Not at all Becoming easily annoyed or irritable: 0 = Not at all Feeling afraid as if something awful might happen: 0 = Not at all Total DALTON-7 score (0-4 normal; 5-9 mild; 10-14 moderate; 15-21 severe): 0 Source: Developed by Drs. Kulwant Whaley, Claudia Juarez, José Luis Donahue and colleagues, with an educational mariseal from [employer] ([employer]). DALTON-7 Assessment Billing DALTON-7 Assessment Tool: DALTON-7 Assessment 48492 Review of Systems Const All systems reviewed & are unremarkable except as noted in HPI and below Eyes Reports no additional complaints ENT Reports no additional complaints Card Reports no additional complaints Resp Reports no additional complaints GI Reports no additional complaints Reports no additional complaints Physical exam (Primary Care) Vital Signs: Last Vital Signs Temp 98.0 F 08/17/25 13:41 Pulse 54 08/17/25 13:41 Resp 18 08/17/25 13:41 BP 120/70 08/17/25 13:41 Pulse Ox 95 08/17/25 13:41 Oxygen Delivery Method Room Air 08/17/25 13:41 BMI result Body Mass Index 31.2 Tobacco/Smoking Status: Tobacco use Status Tobacco use date assessed 08/17/25 08/17/25 13:47 Patient Tobacco Use Status Never used Tobacco 08/17/25 13:27 e-Cigarette/Vaping Use Never Used 08/17/25 13:27 PHQ-9: PHQ-9 Score PHQ-9: Total score 0 08/17/25 13:47 Depression Screening Interpretation: Negative Thrive Assessment: Date of Thrive Assessment Date Thrive assessed 08/17/25 08/17/25 13:47 Currently or been in a relationship where the following occur: No concerns reported Const General: no acute distress HENMT Head: Yes normal to inspection Ears: hearing grossly normal bilaterally Face and sinus: Yes normal facial exam Mouth: Normal oral and palatal mucosa present Eyes General: appearance normal, both eyes and all related structures Neck Neck: Yes no lymphadenopathy and Yes supple Resp Effort & Inspection: normal respiratory effort Auscultation: clear to auscultation bilaterally Cardio Rhythm: regular rhythm Heart sounds: S1 normal heart sound present and S2 normal heart sound present GI Inspection: Yes normal to inspection Palpation (GI): Soft to palpation Percussion: Yes normal to percussion Auscultation: normal bowel sounds Coding Level of Care Code Est Pt Prev Care >65y(14377) Diagnoses Depression F32.9 HTN (hypertension) I10 Hyperlipidemia E78.5 BPH w urinary obs/LUTS N40.1; N13.8 Annual physical exam Z00.00 Additional Codes DALTON-7 Assessment Billing - DALTON-7 Assessment Tool: DALTON-7 Assessment 55643 ([id number]) PHQ-9 - 33404 - PHQ-9 Billing: Yes ([id number]) Assessment & Plan Assessment & Plan (1) Depression: Comment: Follow-up with Psychiatry Code(s): F32.9 - Major depressive disorder, single episode, unspecified Category: Medical Plan: Continue current medications follow-up with psychiatry (2) HTN (hypertension): Code(s): I10 - Essential (primary) hypertension Category: Medical Plan: Continue current medications (3) Hyperlipidemia: Code(s): E78.5 - Hyperlipidemia, unspecified Category: Medical Plan: Continue statin (4) BPH w urinary obs/LUTS: Code(s): N40.1 - Benign prostatic hyperplasia with lower urinary tract symptoms; N13.8 - Other obstructive and reflux uropathy Category: Medical Plan: Controlled on finasteride and Flomax (5) Annual physical exam: Code(s): Z00.00 - Encounter for general adult medical examination without abnormal findings Category: Medical Plan: Well-balanced diet regular physical activity discussed with the patient he is up-to-date with colonoscopy Orders: Orders Complete Blood Count Auto Diff 1 Year E78.5 - Hyperlipidemia, unspecified, I10 - Essential (primary) hypertension, Z00.00 - Encounter for general adult medical examination without abnormal findings UA w Microscopic 1 Year E78.5 - Hyperlipidemia, unspecified, I10 - Essential (primary) hypertension, Z00.00 - Encounter for general adult medical examination without abnormal findings Comprehensive [place]. Panel Fast 1 Year E78.5 - Hyperlipidemia, unspecified, I10 - Essential (primary) hypertension, Z00.00 - Encounter for general adult medical examination without abnormal findings Lipid Panel 1 Year E78.5 - Hyperlipidemia, unspecified, I10 - Essential (primary) hypertension, Z00.00 - Encounter for general adult medical examination without abnormal findings Medications: New finasteride 5 mg PO DAILY 90 tabs 3RF Refilled atorvastatin 10 mg PO DAILY 90 tabs 3RF cholecalciferol (vitamin D3) 50 mcg PO DAILY 90 tabs 3RF lisinopril-hydrochlorothiazide 20-12.5 mg 1 tab PO DAILY 90 tabs 3RF Discontinued finasteride Discontinued Reason: Doctor's Order 5 mg PO DAILY 90 days 90 tabs 1RF N13.8 - Other obstructive and reflux uropathy, N40.1 - Benign prostatic hyperplasia with lower urinary tract symptoms, R33.9 - Retention of urine, unspecified
[2025-08-17 13:41] VITALS: BP 120/70; PULSE 54; RESP 18; TEMP 36.7; O2SAT 95; BMI 31.2
--- OUTSIDE RECORDS SUMMARY | 2025-08-17 15:21 | XMS_ITS | Encounter Summary ---
Author Organization [employer] Address [address] [place] [address] Care Team Providers Care Cook Soup Name Role Phone Unavailable Primary Care Provider Unavailabl e Encounter Details Date Type Department Care Team (Latest Contact Info) Description 10/12/2019 Abstract [facility] CONVERSIONS Dental, Provider, DDS Social History [...] Team (Late st Contact Info) Description 10/13/2025 1:30 PM EST Office Visit [facility] ADULT DENTAL [address] [place] [address] Aneesh Ara [address] [place] [address] documented as of this encounter Visit Diagnoses Not on filedocumented in this encounter
--- OUTSIDE RECORDS SUMMARY | 2025-08-17 15:21 | XMS_ITS | Encounter Summary ---
Author Organization [employer] Address [address] [place] [address] Care Team Providers Care Educational/Development Assistant Name Role Phone Unavailable Primary Care Provider Unavailabl e Encounter Details Date Type Department Care Team (Latest Contact Info) Description 04/10/2021 Abstract [facility] CONVERSIONS Dental, Provider, DDS Social History [...] Description 10/13/2025 1:30 PM EST Office Visit [facility] ADULT DENTAL [address] [place] [address] Niko Melendrezaris [address] [place] [address] documented as of this encounter Visit Diagnoses Not on filedocumented in this encounter
--- OUTSIDE RECORDS SUMMARY | 2025-08-17 15:21 | XMS_ITS | Encounter Summary ---
Author Organization [employer] Address [address] [place] [address] Care Team Providers Care Gameplay Engineer Name Role Phone Unavailable Primary Care Provider Unavailabl e Encounter Details Date Type Department Care Team (Latest Contact Info) Description 06/09/[address] [facility] CONVERSIONS Dental, Provider, DDS Social History [...] Description 10/13/2025 1:30 PM EST Office Visit [facility] ADULT DENTAL [address] [place] [address] Aneesh, Ara [address] [place] [address] documented as of this encounter Visit Diagnoses Not on filedocumented in this encounter
--- OUTSIDE RECORDS SUMMARY | 2025-08-17 15:21 | XMS_ITS | Clinical Summary ---
Author Organization [address] [facility] Address [address] [place] [address] Phone Care Team Providers Care Mailmaster Name Role Phone Lor Jeffrey MD Primary [...] Encounters Date Type Department Care Team Description 08/15/2025 1:15 PM EDT Office Visit [facility] [place] [address] [place] [phone] Pito Lagos, DPM Ingrowing nail (Primary Dx); Dermatophytosis of nail; Pain in toe of left foot; Pain in toe of right foot; Bilateral femoral artery stenosis (CMS/HCC V24); Hammer toe of left foot; Acquired hammer toe of right foot from Last 3 Months Immunizations Name Administration Dates Next Due Moderna SARS-CoV-2 COVID-19, mRNA, LNP-S, preservative free 08/14/2022 Surgical History Surgery Date Site/Laterality Comments HERNIA REPAIR EYE SURGERY Medical History Medical History Date Comments Psychiatric disorder 02/25/2012 DX:Psychiat jaime disorder Hypertension 02/25/2012 DX:Hypertension Borderline diabetes 02/25/2012 DX:Borderlin e diabetes Mixed hyperlipidemia 02/25/2012 DX:Mixed hy perlipidemia Bipolar 2 disorder (CMS/HCC V24, CMS/HCC V28) Family History Medical History Relation Name [...] PM EDT Office Visit [facility] [place] [address] [phone] Pito Lagos, DPM [address] [phone] Health Maintenance Due Date Last Done Comments DTaP,Tdap,and Td Vaccines (1 - Tdap) 1974 Cholesterol Screening (Lipid Panel) 09/16/2024 Colorectal Cancer Screening: Colonoscopy 09/16/2024 Hepatitis C Screening 09/16/2024 Medicare Annual Wellness Visit 09/16/2024 Social Influencers of Health Screening 09/16/2024 Depression Screening 11/30/2024 Falls Risk Assessment 01/05/2026 01/05/2025 Hypertension/CHF/CAD Annual BMP Blood Test 01/05/2026 01/05/2025, 01/04/2025 RSV Immunization Adult Patients (1 - 1-dose 75+ series) 2029 Zoster Vaccines Completed 10/25/2018, 12/2017, 12/05/2014, Additional history exists Pneumococcal Vaccine: 50+ Years Completed 08/02/2020, 08/02/2019, 08/01/2013 Influenza Vaccine Completed 08/04/2025, , 07/23/2023, Additional history exists COVID-19 Vaccine Completed 08/08/2025, 03/2024, 08/18/2023, Additional history exists HIB Vaccines Aged Out [...] mmol/L LAB CHEMISTRY METHOD 01/05/2025 7:38 AM [facility] Potassium 3.8 3.5 - 5.5 mmol/L LAB CHEMISTRY METHOD 01/05/2025 7:38 AM [facility] Chloride 106 96 - 110 mmol/L LAB CHEMISTRY METHOD 01/05/2025 7:38 AM [facility] CO2 27 21 - 32 mmol/L LAB CHEMISTRY METHOD 01/05/2025 7:38 AM [facility] Anion Gap 7 3 - 11 LAB CHEMISTRY METHOD 01/05/2025 7:38 AM [facility] Glucose 124(H) 70 - 100 mg/dL LAB CHEMISTRY METHOD 01/05/2025 7:38 AM [facility] BUN 25 5 - 25 mg/dL LAB CHEMISTRY METHOD 01/05/2025 7:38 AM [facility] Creatinine 1.25 0.70 - 1.30 mg/dL LAB CHEMISTRY METHOD 01/05/2025 7:38 AM [facility] eGFR 62 >=60 mL/min/1. 73m2 LAB CHEMISTRY METHOD 01/05/2025 7:38 AM EST [facility] Comment:Calculation based on the Chronic Kidney Disease Epidemiology Collaboration (CKD-EPI) equation refit without adjustment for race. BUN/Creatinine Ratio 20.0 LAB CHEMISTRY METHOD 01/05/2025 7:38 AM EST [facility] Calcium 9.9 8.5 - 10.5 mg/dL LAB CHEMISTRY METHOD 01/05/2025 7:38 AM EST [facility] Blood Venous blood specimen / Unknown Venipuncture / Unknown 01/05/2025 6:15 AM EST 01/05/2025 6:54 AM EST [facility] RAMIRE[facility] LAB BLOOD ORDERABLES Final R esult [facility] [address] [place] [address], from Last 3 Months or Most Recently Relevant to Health [place] [address] MEDICAID - [place] MEDICARE Member Subscriber Plan / Payer (Ef fective 1983-Present) Name:GATO NO Member ID:[id number] Relation to Subscriber:Self Name:Gato No Subscriber ID:[id number] Payer ID:Not on file Group ID:Not on file Type:Medicare Address: [facility] [address] [phone] Advance Directives Documents on File Type Date Recorded 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
--- OUTSIDE RECORDS SUMMARY | 2025-08-17 15:21 | XMS_ITS | Clinical Summary ---
Author Organization [employer] Address [address] [place] [address] Care Team Providers Care Executive Director Name Role Phone Unavailable Primary Care [...] Description 10/13/2025 1:30 PM EST Office Visit [facility] ADULT DENTAL [address] [place], [place] [phone] Aneesh, Ara [address] [place] [address] Health Maintenance Due Date Last Done Comments [...] Most Recently Relevant to Health Maintenance Insurance [facility] MEDICAID STAND ADULT
== END 2025-08-17 15:54 | disposition home or self-care (01) ==
LOC: HO.HMCC 13:21
PROVIDERS: PCP Internal Medicine; Visit Provider Internal Medicine
DX: Z00.00 Encounter for general adult medical examination without abnormal findings (principal); F32.9 Major depressive disorder, single episode, unspecified; I10 Essential (primary) hypertension; E78.5 Hyperlipidemia, unspecified; N40.1 Benign prostatic hyperplasia with lower urinary tract symptoms; N13.8 Other obstructive and reflux uropathy

== ENCOUNTER → 2025-08-17 13:20 | Outpatient (BNVA) | payer MEDICARE, MEDICAID, SELFPAY | PROVIDERS: PCP Internal Medicine; Visit Provider Internal Medicine | DX: Z00.00 Encounter for general adult medical examination without abnormal findings (principal); F32.9 Major depressive disorder, single episode, unspecified; I10 Essential (primary) hypertension; E78.5 Hyperlipidemia, unspecified; N40.1 Benign prostatic hyperplasia with lower urinary tract symptoms; N13.8 Other obstructive and reflux uropathy; R33.8 Other retention of urine | CPT/HCPCS: 96127; 99397 ==

== ENCOUNTER 2025-08-25 10:56 | Outpatient (REF) | payer MEDICARE, MEDICAID, SELFPAY ==
--- OUTSIDE RECORDS SUMMARY | 2024-08-02 07:10 | XMS_ITS ---
Author Organization [facility] Address [address] [place] [id number] Care Team Providers Care Automobile Drivers Name Role Phone Lor Jeffrey MD Primary Care Provider Javier Donato Jr REASON FOR VISIT screening Encounters Encounter Location Date Provider Diagnosis [facility] [place] [address] [place], [place] [phone] 08/02/2024 Javier Lee Jr Colon cancer screening Z12.11 and Colon polyps K63.5 Assessments Encounter Date Diagnosis (ICD Code) Assessment Notes Treatment Notes Treatment Clinical Notes Section Notes 08/02/2024 Colon cancer screening (ICD-10 - Z12.11) 08/02/2024 Colon polyps (ICD-10 - K63.5) Plan Of Treatment No Information Progress Notes * BART RUVALCABADOB:[birth year] (70 yo M)Acc No.[id number]:08/02/2024 COLON WITH MAC Patient: Aspen VERASBART Provider: Lazaro Lee MD :1955 A ge:69 Y S ex:Male Date:08/02/2024 Address:[address], [id number] Pcp:Lor Jeffrey MD Subjective: * Chief Complaints: * 1 . Screening. * Medical History: Objective: * Vitals: Assessment: * Assessment: 1. C olon cancer screening - Z12.11 (Primary) 2 . C olon polyps - K63.5? Plan: * Treatment: * Procedure Codes: G 0105 COLOREC CANCR SCR; COLNSCPY HI RISK, [address] LESION REMOVAL COLONOSCOPY * * The named appointment provid er may or may not be the originator of this progress note, and it is not deemed complete until electronically signed by the appointment provider. Sign off status: Pending * Provider: Lazaro Lee MD Date: 0 08/02/2024 Generated for Brandi loomis/Margot/Carmenitting on: 0 08/25/2025 12:41 PM EDT
--- OUTSIDE RECORDS SUMMARY | 2025-08-25 12:42 | XMS_ITS | Clinical Summary ---
Author Organization [employer] Address [address] [place] [address] Care Team Providers Care Graphic Illustrator Name Role Phone Unavailable Primary Care Provider [...] Description 10/13/2025 1:30 PM EST Office Visit [facility] ADULT DENTAL [address] [place], [place] [phone] Aneesh, Ara [address] [place] [address] Health Maintenance Due Date Last Done Comments [...] Most Recently Relevant to Health Maintenance Insurance [facility] MEDICAID STAND ADULT
--- OUTSIDE RECORDS SUMMARY | 2025-08-25 12:42 | XMS_ITS | Clinical Summary ---
Author Organization 175 [facility] Address [address] [place] [address] Phone Care Team Providers Care Pet Care Worker Name Role Phone Lor Jeffrey MD [...] PM EDT Office Visit [facility] - [place] [address] [place] [phone] Pito Lagos, DPM Ingrowing nail (Primary [...] PM EDT Office Visit [facility] [place] [address] [phone] Pito Lagos, DPM [address] [phone] Health Maintenance Due Date Last [...] mmol/L LAB CHEMISTRY METHOD 01/05/2025 7:38 AM [facility] Potassium 3.8 3.5 - 5.5 mmol/L LAB CHEMISTRY METHOD 01/05/2025 7:38 AM [facility] Chloride 106 96 - 110 mmol/L LAB CHEMISTRY METHOD 01/05/2025 7:38 AM [facility] CO2 27 21 - 32 mmol/L LAB CHEMISTRY METHOD 01/05/2025 7:38 AM [facility] Anion Gap 7 3 - 11 LAB CHEMISTRY METHOD 01/05/2025 7:38 AM [facility] Glucose 124(H) 70 - 100 mg/dL LAB CHEMISTRY METHOD 01/05/2025 7:38 AM [facility] BUN 25 5 - 25 mg/dL LAB CHEMISTRY METHOD 01/05/2025 7:38 AM [facility] Creatinine 1.25 0.70 - 1.30 mg/dL LAB CHEMISTRY METHOD 01/05/2025 7:38 AM [facility] eGFR 62 >=60 mL/min/1. 73m2 LAB CHEMISTRY METHOD 01/05/2025 7:38 AM EST [facility] Comment:Calculation based on the Chronic Kidney Disease Epidemiology Collaboration (CKD-EPI) equation refit without adjustment for race. BUN/Creatinine Ratio 20.0 LAB CHEMISTRY METHOD 01/05/2025 7:38 AM EST [facility] Calcium 9.9 8.5 - 10.5 mg/dL LAB CHEMISTRY METHOD 01/05/2025 7:38 AM EST [facility] Blood Venous blood specimen / Unknown Venipuncture / Unknown 01/05/2025 6:15 AM EST 01/05/2025 6:54 AM EST [facility] RAMIRE[facility] LAB BLOOD ORDERABLES Final R esult [facility] [address] [place] [address], from Last 3 Months or Most Recently Relevant to [place] [address] MEDICA[place] - [place] MEDICARE Member Subscriber Plan / Payer (Ef fective 1983-Present) Name:GATO NO Member ID:[id number] Relation to Subscriber:Self Name:Gato No Subscriber ID:[id number] Payer ID:Not on file Group ID:Not on file Type:Medicare Address: [facility] [address] [phone] Advance Directives Documents on File Type Date Recorded Patient Transcript Clerk Expl anation Advance Directives and Living Will 01/05/2025 2:46 PM [facility] * Full Code - [...] Agents on File Name Relationship Healthcare [facility] David No [facility] Health Care Agent Ana No Relative First Alternate Health Care Agent Care Teams Pet Care Worker Relationship Specialty Start Date End Date Lor Jeffrey MD [address] [place] [phone] PCP - General 07/27/24
--- OUTSIDE RECORDS SUMMARY | 2025-08-25 12:42 | XMS_ITS | Encounter Summary ---
Author Organization [employer] Address [address] [place] [address] Care Team Providers Care Apprise Counselor Name Role Phone Unavailable Primary Care Provider Unavailabl e Encounter Details Date Type Department Care Team (Latest Contact Info) Description 10/12/2019 Abstract [facility] CONVERSIONS Dental, Provider, DDS Social History [...] Description 10/13/2025 1:30 PM EST Office Visit [facility] ADULT DENTAL [address] [place] [address] Aneesh Ara [address] [place] [address] documented as of this encounter Visit Diagnoses Not on filedocumented in this encounter
--- OUTSIDE RECORDS SUMMARY | 2025-08-25 12:42 | XMS_ITS | Encounter Summary ---
Author Organization [employer] Address [address] [place] [address] Care Team Providers Care Media Director Name Role Phone Unavailable Primary Care Provider Unavailabl e Encounter Details Date Type Department Care Team (Latest Contact Info) Description 04/10/2021 Abstract [facility] CONVERSIONS Dental, Provider, DDS Social History [...] Description 10/13/2025 1:30 PM EST Office Visit [facility] ADULT DENTAL [address] [place] [address] Niko Melendrezaris [address] [place] [address] documented as of this encounter Visit Diagnoses Not on filedocumented in this encounter
--- OUTSIDE RECORDS SUMMARY | 2025-08-25 12:42 | XMS_ITS | Encounter Summary ---
Author Organization [email or web address] Address [address] [place] [address] Care Team Providers Care Spike Driver Name Role Phone Unavailable Primary Care Provider Unavailabl e Encounter Details Date Type Department Care Team (Latest Contact Info) Description 06/09/[address] [facility] CONVERSIONS Dental, Provider, DDS Social [...] 10/13/2025 1:30 PM EST Office Visit [facility] ADULT DENTAL [address] [place] [address] Aneesh, Ara [address] [place] [address] documented as of this encounter Visit Diagnoses Not on filedocumented in this encounter
--- OUTSIDE RECORDS SUMMARY | 2025-08-25 12:42 | XMS_ITS | Patient Health Record ---
Author Organization [facility] Address [address] [place] [address] Care Team Providers Care Chart Changer Name Role Phone Lor Jeffrey MD Primary Care Provider Javier Donato Jr Unavailable Allergies No Known Allergies Reason For Referral No Information Medications Medication [...] Problem Status W/U Status Risk Notes Problem [id number] Colon cancer screening (Z12.11) Active confirmed Problem 288754171 Long-term use of aspirin therapy (Z79.82) Active confirmed Plan Of Treatment Future Test Test Name Order Date COLONOSCOPY 06/11/2012 COLONOSCOPY 06/30/2013 COLONOSCOPY 01/05/2019 COLONOSCOPY 06/30/2024 Insurance Providers Payer Name Payer Address Payer Phone Subscriber Number Group Number Insured Name Patient Relationship to Insured Coverage Start Date Coverage End Date MEDICARE OF [place] [address] [place] [address] [id number] BART RUVALCABA Self - patient is the insured MEDICAID [facility] [address] [place] [address] [id number] BART RUVALCABA Self - patient is the [...]
[2025-08-25 14:20] LABS: Prostate Specific Antigen 0.77 ng/mL (<0.05-4.0)
== END 2025-08-25 10:57 | disposition home or self-care (01) ==
LOC: HO.HMGCLDS 10:56
PROVIDERS: PCP Internal Medicine; Visit Provider Nurse Practitioner Family
DX: Z12.5 Encounter for screening for malignant neoplasm of prostate (principal); N13.8 Other obstructive and reflux uropathy; N40.1 Benign prostatic hyperplasia with lower urinary tract symptoms
CPT/HCPCS: 36415; 84153

== ENCOUNTER 2025-09-06 12:54 | Outpatient (AMB) | payer MEDICARE, MEDICAID, SELFPAY ==
--- NOTE | 2025-09-06 12:57 | MHC.OFFVIS ---
Intake Visit Reasons: 1 year follow up/ PSA Intake Note: patient presents today for: 1yr follow up/PSA urology medications: tamsulosin, finasteride blood thinners: aspirin labs done 08/25/25: PSA 0.77 today's PVR: 65mls Installer Metal Flooring Required: No Accompanied by: Self / Same As Patient Allergies No Known Allergies Allergy (Mild, Verified 09/06/25 13:28) NONE Medication List - Last Reconciled 09/06/25 by QUIN Crenshaw- aspirin 81 mg PO DAILY atorvastatin 10 mg PO DAILY benztropine 0.5 mg PO BID cholecalciferol (vitamin D3) 50 mcg PO DAILY divalproex ER (Depakote ER) 500 mg PO BID finasteride 5 mg PO DAILY haloperidol 4 mg PO BEDTIME lisinopril-hydrochlorothiazide 20-12.5 mg 1 tab PO DAILY tamsulosin (Flomax) 0.8 mg (2 x 0.4 mg) PO BEDTIME 90 days HPI Comments Details: Gato is a very pleasant 70-year-old male patient of Dr. Jeffrey. He has a past medical history of depression, hyperlipidemia, hypertension. He presents to the office today for follow-up. In discussion with the patient today reports to be doing and feeling well. He reports compliance with 0.8 mg of Flomax daily as well as 5 mg of finasteride. In office urinalysis results reviewed with the patient today. PVR 65 mL. He denies having had any bothersome urinary issues or concerns. Previous workup has included a bladder ultrasound 08/22 noting the bladder is well distended. There is mild bladder wall thickening, particularly posteriorly. No stone or mass. Bilateral ureteral jets are demonstrated. Pre void bladder volume is approximately 540 mL. Post void bladder volume is approximately 265 mL. The prostate gland is enlarged and protrudes into the base of the bladder. Prostate gland measures 12 x 9 x 9.5 cm, volume of approximately 96 mL. In office urinalysis results reviewed with the patient today. PVR 63 mL. PSAs are as follows: 02/15 1.6, 06/18 2.9, 07/20 2.4, 07/20 2.3, 06/20 2.5, 12/22 2.9, 01/23 1.0, 08/23 0.9, 08/24 0.8 He reports be current voiding parameters. All questions were answered. He otherwise offers no other issues or concerns at this time. [facility] Medical History Elevated cholesterol Bipolar 1 disorder Chest pain Normal colonoscopy Depression Hyperlipidemia HTN (hypertension) Annual physical exam Surgical History Hx of bilateral cataract extraction History of colonoscopy History of inguinal hernia repair Family History Father Gastritis Mother Cardiac disease Diabetes mellitus Brother No problems noted. Brother No problems noted. Sister No problems noted. Sister No problems noted. Social History Housing: House Patient Tobacco Use Status: Never used Tobacco e-Cigarette/Vaping Use: Never Used service: No Current occupational status: retired Cognitive needs: No Hearing needs: No Vision needs: Yes Review of Systems Const Reports no additional complaints Eyes Reports no additional complaints ENT Reports no additional complaints Card Reports as per HPI Resp Reports no additional complaints GI Reports no additional complaints Reports as per HPI Musc Reports no additional complaints Neuro Reports no additional complaints Psych Reports as per HPI Endo Reports no additional complaints Physical Exam Const General: cooperative, healthy appearing, comfortable, no acute distress, well developed, alert and awake Orientation/consciousness: patient oriented x3 Limitations: no limitations HEENT Head: Yes normal to inspection, Yes normocephalic and Yes atraumatic Ears: hearing grossly normal bilaterally Eyes General: appearance normal, both eyes and all related structures Neck Neck: Yes normal visual inspection and Yes trachea midline Chest Chest palpation & inspection: normal inspection of the chest Resp Effort & Inspection: normal respiratory effort and able to speak in complete sentences Cardio Rate: regular rate GI Inspection: Yes normal to inspection General: Yes no CVA tenderness Back/Spine/Pelvis Back: no CVA tenderness Skin General skin exam: no rashes or lesions noted Neuro General: patient oriented x3 Extrem General: Yes normal to inspection Psych Appearance: grossly normal and well kempt Mental Status: mental status grossly normal Speech and movement: Normal speech and movement present and Clear speech present Affect: normal affect Attitude: cooperative Thought process: Normal thought process present Thought content: Normal thought content present Insight: Fair insight present (Psych) Judgement: Fair judgement present (Psych) Office Procedures Post Void Residual Post Residual Void Post Void Residual (PVR): 65 [id number] Void Residual by ultrasound Results AMB Urinalysis, Automated UA Leukoctes 0 Mari/uL Last Edit by BROWN Horton on 09/06/25 13:10 UA Nitrite Last Edit by BROWN Horton on 09/06/25 13:10 UA Urobilinogen 0.2 mg/dL Last Edit by Kendra Dumont CCM on 09/06/25 13:10 UA Protein 0 mg/dL Last Edit by Kendra Dumont CCM on 09/06/25 13:10 UA pH 6.0 Last Edit by Kendra Dumont [facility] on 09/06/25 13:10 UA Blood 0 Jesus/uL Last Edit by Kendra Dumont CCM on 09/06/25 13:10 UA Specific [place] 1.010 Last Edit by BROWN Horton on 09/06/25 13:10 UA Ketone Last Edit by BROWN Horton on 09/06/25 13:10 UA Bilirubin 0 mg/dL Last Edit by BROWN Horton on 09/06/25 13:10 UA Glucose 0 mg/dL Last Edit by Kendra Dumont [facility] on 09/06/25 13:10 Results Reviewed Results Reviewed: Laboratory Last Values Urine pH (Auto) 6.0 09/06/25 13:10 Specific [place] (Auto) 1.010 09/06/25 13:10 Urine Protein (Auto) 0 mg/dL 09/06/25 13:10 Glucose (UA)(Auto) 0 mg/dL 09/06/25 13:10 Urine Blood (Auto) 0 Ejsus/uL 09/06/25 13:10 Urine Bilirubin (Auto) 0 mg/dL 09/06/25 13:10 Urine Urobilinogen (Auto) 0.2 mg/dL 09/06/25 13:10 Leukocyte Esterase (Auto) 0 Mari/uL 09/06/25 13:10 Assessment & Plan Assessment & Plan (1) BPH w urinary obs/LUTS: Code(s): N40.1 - Benign prostatic hyperplasia with lower urinary tract symptoms; N13.8 - Other obstructive and reflux uropathy Category: Medical (2) Urinary retention: Code(s): R33.9 - Retention of urine, unspecified Category: Medical (3) Enlarged prostate: Code(s): N40.0 - Benign prostatic hyperplasia without lower urinary tract symptoms Category: Medical (4) Bladder wall thickening: Code(s): N32.89 - Other specified disorders of bladder Category: Medical (5) Lower urinary tract symptoms: Code(s): R39.9 - Unspecified symptoms and signs involving the genitourinary system Category: Medical Plan In office urinalysis results with the patient today; as noted above. PVR 56 mL. Will continue tamsulosin as prescribed. We discussed taking finasteride every other day. Recent PSA results reviewed with the patient today; as noted above. He currently denies any bothersome urinary issues or concerns. He reports be happy with current voiding parameters. Will continue with surveillance monitoring. Will obtain PSA in 1 year. Follow-up in 1 year with PSA and PVR; or sooner with any issues, concerns, and or questions. Orders: Orders Prostate Specific Antigen 1 Year N13.8 - Other obstructive and reflux uropathy, N32.89 - Other specified disorders of bladder, N40.0 - Benign prostatic hyperplasia without lower urinary tract symptoms, N40.1 - Benign prostatic hyperplasia with lower urinary tract symptoms, R33.9 - Retention of urine, unspecified, R39.9 - Unspecified symptoms and signs involving the genitourinary system AMB Post Void Residual by ultrasound Today N13.8 - Other obstructive and reflux uropathy, N40.1 - Benign prostatic hyperplasia with lower urinary tract symptoms AMB Urinalysis Automated Today Z13.9 - Encounter for screening, unspecified Medications: Changed From finasteride 5 mg PO DAILY 90 tabs 3RF To finasteride 5 mg PO .every other day 45 tabs 3RF 90 days Refilled tamsulosin (Flomax) 0.8 mg (2 x 0.4 mg) PO BEDTIME 180 caps 3RF 90 days Patient Instructions: The patient had an opportunity to ask questions regarding the treatment plan. All questions were answered. Physical exam, labs, and imaging were discussed and reviewed in detail. As well as risks, benefits, and discussion of treatment choices. No major barriers to understanding were identified. The patient expressed understanding and agreement with the above treatment plan. The patient was made aware they should contact our office by phone for worsening of their current condition, the appearance of new symptoms, or with any questions or concerns. Compliance is encouraged with any medications and follow up testing that is ordered. It is a privilege to be allowed the opportunity to participate in? your urological care.? Again, if you have any questions or concerns If you have any questions or concerns please do not hesitate to contact me. The office is [phone]. This note is constructed using voice recognition software. While every effort has been made to ensure accuracy thread trimmer errors may have been included. Yours sincerely, GUILLERMO Crenshaw Coding Level of Care Code Est Pt Level 3 (96251) Complex EM visit Add On G2211 Diagnoses BPH w urinary obs/LUTS N40.1; N13.8 Urinary retention R33.9 Enlarged prostate N40.0 Bladder wall thickening N32.89 Lower urinary tract symptoms R39.9 CPT Codes Post Residual Void - PVR CPT Code: 35620-[id number] Void Residual by ultrasound ([id number])
== END 2025-09-06 13:25 | disposition home or self-care (01) ==
LOC: HO.HUSH 12:55
PROVIDERS: PCP Internal Medicine; Visit Provider Nurse Practitioner Family
DX: N40.1 Benign prostatic hyperplasia with lower urinary tract symptoms (principal); N13.8 Other obstructive and reflux uropathy; R33.9 Retention of urine, unspecified; N40.0 Benign prostatic hyperplasia without lower urinary tract symptoms; N32.89 Other specified disorders of bladder; R39.9 Unspecified symptoms and signs involving the genitourinary system; Z13.9 Encounter for screening, unspecified
CPT/HCPCS: 99213; G2211

== ENCOUNTER → 2025-09-06 12:54 | Outpatient (BNVA) | payer MEDICARE, MEDICAID, SELFPAY | PROVIDERS: PCP Internal Medicine; Visit Provider Nurse Practitioner Family | DX: N40.1 Benign prostatic hyperplasia with lower urinary tract symptoms (principal); R33.9 Retention of urine, unspecified; N32.89 Other specified disorders of bladder; R39.9 Unspecified symptoms and signs involving the genitourinary system; N13.8 Other obstructive and reflux uropathy; Z13.9 Encounter for screening, unspecified | CPT/HCPCS: 51798; 81003; 99212 ==

== ENCOUNTER 2025-10-12 10:52 | Outpatient (REF) | payer MEDICARE, MEDICAID, SELFPAY ==
--- OUTSIDE RECORDS SUMMARY | 2024-08-02 06:10 | XMS_ITS ---
Author Organization [facility] Address [address] [place] [id number] Care Team Providers Care Casing Man Name Role Phone Lor Jeffrey MD Primary Care Provider Javier Donato Jr REASON FOR VISIT screening Encounters Encounter Location Date Provider Diagnosis [facility] [place] [address] [place], [place] [phone] 08/02/2024 Javier Lee Jr Colon cancer screening Z12.11 and Colon polyps K63.5 Assessments Encounter Date Diagnosis (ICD Code) Assessment Notes Treatment Notes Treatment Clinical Notes Section Notes 08/02/2024 Colon cancer screening (ICD-10 - Z12.11) 08/02/2024 Colon polyps (ICD-10 - K63.5) Plan Of Treatment No Information Progress Notes * BART RUVALCABADOB:[birth year] (70 yo M)Acc No.[id number]:08/02/2024 COLON WITH MAC Patient: Aspen VERASBART Provider: Lazaro Lee MD :1955 A ge:69 Y S ex:Male Date:08/02/2024 Address:[address], [id number] Pcp:Lor Jeffrey MD Subjective: * Chief Complaints: * 1 . Screening. * Medical History: Objective: * Vitals: Assessment: * Assessment: 1. C olon cancer screening - Z12.11 (Primary) 2 . C olon polyps - K63.5? Plan: * Treatment: * Procedure Codes: G 0105 COLOREC CANCR SCR; COLNSCPY HI RISK, [address]57[address] LESION REMOVAL COLONOSCOPY * * The named appointment provid er may or may not be the originator of this progress note, and it is not deemed complete until electronically signed by the appointment provider. Sign off status: Pending * Provider: Lazaro Lee MD Date: 0 08/02/2024 Generated for Brandi loomis/Margot/Carmenitting on: 1 12/12/2024 01:30 PM EST
[2025-10-12 13:18] LABS: MANUAL DIFF FLAG NO
--- OUTSIDE RECORDS SUMMARY | 2025-10-12 13:31 | XMS_ITS | Encounter Summary ---
Author Organization [employer] Address [address] [place] [address] Care Team Providers Care Threat Monitoring Analyst Name Role Phone Unavailable Primary Care Provider Unavailabl e Encounter Details Date Type Department Care Team (Latest Contact Info) Description 06/09/2022 Abstract [facility] CONVERSIONS Dental, Provider, DDS Social History [...] Description 10/13/2025 1:30 PM EST Office Visit [facility] ADULT DENTAL [address] [place] [address] Aneesh, Ara [address] [place] [address] documented as of this encounter Visit Diagnoses Not on filedocumented in this encounter
--- OUTSIDE RECORDS SUMMARY | 2025-10-12 13:31 | XMS_ITS | Encounter Summary ---
Author Organization [employer] Address [address] [place] [address] Care Team Providers Care Victim Witness Administrator Name Role Phone Unavailable Primary Care Provider Unavailabl e Encounter Details Date Type Department Care Team (Latest Contact Info) Description 10/12/2019 Abstract [facility] CONVERSIONS Dental, Provider, DDS Social History Tobacco [...] Description 10/13/2025 1:30 PM EST Office Visit [facility] ADULT DENTAL [address] [place] [address] Aneesh Ara [address] [place] [address] documented as of this encounter Visit Diagnoses Not on filedocumented in this encounter
--- OUTSIDE RECORDS SUMMARY | 2025-10-12 13:31 | XMS_ITS | Clinical Summary ---
Author Organization [employer] Address [address] [place] [address] Care Team Providers Care Nail Making Machine Tender Name Role Phone Unavailable Primary Care Provider [...] Description 10/13/2025 1:30 PM EST Office Visit [facility] ADULT DENTAL [address] [place], [place] [id number] Aneesh, Ara [address] [place] [address] Health Maintenance Due Date Last Done Comments [...] Most Recently Relevant to Health Maintenance Insurance [facility] MEDICAID STAND ADULT
--- OUTSIDE RECORDS SUMMARY | 2025-10-12 13:31 | XMS_ITS | Encounter Summary ---
Author Organization [employer] Address [address] [place] [address] Care Team Providers Care Artificial Cherry Maker Name Role Phone Unavailable Primary Care Provider Unavailabl e Encounter Details Date Type Department Care Team (Latest Contact Info) Description 04/10/2021 Abstract [facility] CONVERSIONS Dental, Provider, DDS Social [...] Description 10/13/2025 1:30 PM EST Office Visit [facility] ADULT DENTAL [address] [place] [address] Niko Melendrezaris [address] [place] [address] documented as of this encounter Visit Diagnoses Not on filedocumented in this encounter
--- OUTSIDE RECORDS SUMMARY | 2025-10-12 13:31 | XMS_ITS | Patient Health Record ---
Author Organization [facility] Address [address] [place] [address] Care Team Providers Care Partition Notcher Name Role Phone Lor Jeffrey MD Primary Care Provider Javier Donato Jr Unavailable [phone] Allergies No Known Allergies Reason For Referral [...] BY MO UTH EVERY DAY AT BEDTIME Oral; Duration: 90 Active Finasteride 5 MG TAKE 1 TABLET BY GRANT TH DAILY FOR 90 DAYS Oral; Duration: 90 Active Depakote 500 MG as directed Orally e very day Active Tamsulosin HCl 0.4 MG 1 capsule Orally O nce a day; Duration: 30 day(s) Active Benztropine Mesylate 0.5 MG Oral; Duration: 90 Active Divalproex Sodium ER 500 MG Oral; Duration: 90 Active Haldol 5 MG/ML 0.3 ml [...] Problem Status W/U Status Risk Notes Problem Colon cancer screening (157601291) Colon cancer screening (Z12.11) Active confirmed Problem Long-term current use of antiplatelet drug (998775049614927) Long-term use of aspirin therapy (Z79.82) Active confirmed Plan Of Treatment Future Test Test Name Order Date COLONOSCOPY 06/11/2012 COLONOSCOPY 06/30/2013 COLONOSCOPY 01/05/2019 COLONOSCOPY 06/30/2024 Insurance Providers Payer Name Payer Address Payer Phone Subscriber Number Group Number Insured Name Patient Relationship to Insured Coverage Start Date Coverage End Date MEDICARE OF [place] [address] [place] [id number] BART RUVALCABA Self - patient is the insured MEDICAID OF [facility] [address] [place] [address] [id number] BART RUVALCABA Self - patient is the [...]
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
[2025-10-12 13:39] LABS: Hematocrit 41.6 % (42.0-52.0); Hemoglobin 14.1 g/dl (14.0-18.0); Imm Gran Abs Auto 0.02 X10*3/uL (0.00-0.03); Imm Gran Pct Auto 0.4 % (0.0-0.4); Lymphocytes Absolute Auto 1.8 X10*3/uL (1.2-4.9); Mean Corpuscular HGB Conc 33.9 g/dl (31.0-36.0); Mean Corpuscular Hemoglobin 28.5 pg (27.0-33.0); Mean Corpuscular Volume 84.0 fL (80.0-98.0); NRBC Abs Auto 0.000 X10*3/uL (0.0-0.012); NRBC Pct Auto 0.0 /100WBC (0.0-0.2); Platelet Count 237 X10*3/uL (160-400); Red Blood Count 4.95 X10*6/uL (4.60-5.80); White Blood Count 5.4 X10*3/uL (4.8-10.8)
[2025-10-12 13:41] LABS: Alanine Aminotransferase 25 U/L (0-40); Albumin Level 4.3 g/dL (3.5-5.0); Alkaline Phosphatase 66 U/L (39-117); Amylase 83 U/L (28-100); Anion Gap 11 (12-20); Aspartate Amino Transferase 25 U/L (5-37); Blood Urea Nitrogen 24 mg/dL (9-16); Calcium 9.5 mg/dL (8.4-10.2); Carbon Dioxide 26 mmol/L (22-29); Chloride 106 mmol/L (96-108); Estimated Glomerular Filt Rate 57; Potassium 3.9 mmol/L (3.3-5.1); Sodium 139 mmol/L (135-145); Total Protein 6.9 g/dL (6.5-8.0)
== END 2025-10-12 10:53 | disposition home or self-care (01) ==
LOC: HO.HMGCLDS 10:52
PROVIDERS: PCP Internal Medicine; Visit Provider Clinical Nurse Specialist Psychiatric/Mental Health
DX: F31.9 Bipolar disorder, unspecified (principal)
CPT/HCPCS: 36415; 80053; 80164; 82150; 85025